=== PATIENT | female | born 1980 | race Two or more races ===

== ENCOUNTER 2018-09-16 19:27 | Inpatient (IN) | payer SELFPAY ==
[~2018-09-16] VITALS: Ht 160 cm; Wt 125.3 kg
[~2018-09-16 19:27] MED LIST: LEVO500T59 PO; TRAM50TA PO
[2018-09-16] MEDS ORDERED: fentaNYL PF VIAL 100 MCG/2 ML VIAL IV ONE ×2 (20:15→21:30)
[2018-09-16] MEDS ORDERED: IV NORMAL SALINE 1000ML BAG 1,000 ML IV ONE ×2 (20:15)
[2018-09-16] MEDS ORDERED: cefTRIAXone IV Push 1 GM VIAL. IVP ONE (20:15)
[2018-09-16] MEDS ORDERED: ACETAMINOPHEN 500 MG TABLET PO ONE (20:15)
[2018-09-16 20:18] LABS: CREATININE ISTAT 1.5 mg/dL (0.5-1.4); HEMOGLOBIN ISTAT 13.6 g/dL (12-15); ION CA ISTAT 1.13 mmol/L (1.13-1.32); POTASSIUM ISTAT 3.3 mmol/L (3.5-5.0)
[2018-09-16 20:18] LABS: BASO % 0 % (0-3); EOS # 0.1 x10^3/uL (0.0-0.7); EOS % 3 % (0-3); HEMATOCRIT 38.5 % (36.0-47.0); HEMOGLOBIN 12.8 g/dL (12.0-15.5); LYMPH # 0.7 x10^3/uL (1.0-4.8); LYMPH % 32 % (24-48); MEAN CORPUSCULAR HEMOGLOBIN 28 pg (25-35); MEAN CORPUSCULAR HGB CONC 33 g/dL (31-37); MEAN CORPUSCULAR VOLUME 85 fL (79-100); MONO % 2 % (0-9); NEUT # 1.4 x10^3/uL (1.8-7.7); NEUT % 63 % (31-73); PLATELET COUNT 101 x10^3/uL (140-400); RED BLOOD COUNT 4.52 x10^6/uL (3.50-5.40); RED CELL DISTRIBUTION WIDTH 15.3 % (11.5-14.5); WHITE BLOOD COUNT 2.2 x10^3/uL (4.0-11.0)
[2018-09-16 20:19] LABS: BILIRUBIN,URINE NEGATIVE (NEG); CLARITY,URINE CLOUDY; COLOR,URINE YELLOW; NITRITE,URINE NEGATIVE (NEG); PH,URINE 5.5; PROTEIN,URINE 100 mg/dL (NEG-TRACE)
--- NOTE | 2018-09-16 20:19 | PHYS DOC ---
Past Medical History Past Medical History: No Pertinent History Past Surgical History: Alcohol Use: None Drug Use: None Adult General Chief Complaint Chief Complaint: SHORTNESS OF BREATH HPI HPI Patient is a 38 year old female presents for shortness of breath as well as right flank pain just got back from a trip from [place] was in the car the whole time pain started on Monday in the right flank does have a history of kidney stone he felt kind of like that. In addition patient is feeling more short of breath feels like it's hard to get air has some chest pain in the lower substernal area feel sharp in nature of note temperature was 103.2. symptoms moderate worsening wtih time postivie hematuria nausea no vomiting no diarrhea has not felt sob like this before feels heart racing. All other ROS neg unless otherwise noted in HPI Review of Systems Review of Systems see above Current Medications Current Medications Current Medications Medications (Trade) Dose Ordered Sig/Saad Start Time Stop Time Status Last Admin Dose Admin Acetaminophen (Tylenol) 1,000 mg 1X ONCE 09/16/18 20:15 09/16/18 20:16 DC 09/16/18 20:25 1,000 MG Ceftriaxone Sodium (Rocephin) 1 gm 1X ONCE 09/16/18 20:15 09/16/18 20:16 DC 09/16/18 20:25 1 GM Fentanyl Citrate (Fentanyl 2ml Vial) 50 mcg 1X ONCE 09/16/18 21:30 09/16/18 21:31 DC 09/16/18 21:27 50 MCG Info (CONTRAST GIVEN -- Rx MONITORING) 1 each PRN DAILY PRN 09/16/18 20:45 09/18/18 20:44 Iohexol (Omnipaque 350 Mg/ml) 75 ml 1X ONCE 09/16/18 20:45 09/16/18 20:46 DC 09/16/18 21:04 75 ML Sodium Chloride 1,000 ml @ 1,560 mls/hr Q39M 09/16/18 20:45 09/16/18 21:45 DC 09/16/18 21:39 1,560 MLS/HR Allergies Allergies Allergies Coded Allergies Type Severity Reaction Last Updated Verified No Known Drug Allergies 11/28/13 No Physical Exam Physical Exam see above Constitutional: Well developed, somewhat acute distress, non-toxic appearance. [] HENT: Normocephalic, atraumatic, bilateral external ears normal, oropharynx moist, no oral exudates, nose normal. [] Eyes: PERRLA, EOMI, conjunctiva normal, no discharge. [] Neck: Normal range of motion, no tenderness, supple, no stridor. [] Cardiovascular: Tachycardic no definite murmurs limited exam due to rate Lungs & Thorax: Tachypnea otherwise lungs clear Abdomen: Bowel sounds normal, soft, there is right mid abdomen and right cva ttp noted, no masses, no pulsatile masses. [] Skin: Warm, dry, no erythema, no rash. [] Back: CVA tenderness. [] Extremities: No tenderness, no cyanosis, no clubbing, ROM intact, no edema. [] Neurologic: Alert and oriented X 3, normal motor function, normal sensory function, no focal deficits noted. [] Psychologic: Affect normal, judgement normal, mood normal. [] Current Patient Data Vital Signs Vital Signs Date Time Temp Pulse Resp B/P (MAP) Pulse Ox O2 Delivery O2 Flow Rate FiO2 09/16/18 21:27 24 Room Air 09/16/18 21:03 99.9 116 110/56 (74) 97 99.9 Lab Values Laboratory Tests Test 09/16/18 19:38 09/16/18 19:50 09/16/18 20:03 09/16/18 20:10 Urine Collection Type Unknown Urine Color Yellow Urine Clarity Cloudy Urine pH 5.5 Urine Specific [place] 1.020 Urine Protein 100 mg/dL (NEG-TRACE) Urine Glucose (UA) 100 mg/dL (NEG) Urine Ketones (Stick) Negative mg/dL (NEG) Urine Blood Large (NEG) Urine Nitrite Negative (NEG) Urine Bilirubin Negative (NEG) Urine Urobilinogen Dipstick 1.0 mg/dL (0.2 mg/dL) Urine Leukocyte Esterase Moderate (NEG) Urine RBC 0 /HPF (0-2) Urine WBC >40 /HPF (0-4) Urine Squamous Epithelial Cells Mod /LPF Urine Bacteria Moderate /HPF (0-FEW) Urine Mucus Slight /LPF Urine Opiates Screen Neg (NEG) Urine Methadone Screen Neg (NEG) Urine Barbiturates Neg (NEG) Urine Phencyclidine Screen Neg (NEG) Urine Amphetamine/Methamphetamine Neg (NEG) Urine Benzodiazepines Screen Neg (NEG) Urine Cocaine Screen Neg (NEG) Urine Cannabinoids Screen Neg (NEG) Urine Ethyl Alcohol Neg (NEG) POC Urine HCG, Qualitative Hcg negative (Negative) White Blood Count 2.2 x10^3/uL (4.0-11.0) L Red Blood Count 4.52 x10^6/uL (3.50-5.40) Hemoglobin 12.8 g/dL (12.0-15.5) Hematocrit 38.5 % (36.0-47.0) Mean Corpuscular Volume 85 fL (79-100) Mean Corpuscular Hemoglobin 28 pg (25-35) Mean Corpuscular Hemoglobin Concent 33 g/dL (31-37) Red Cell Distribution Width 15.3 % (11.5-14.5) H Platelet Count 101 x10^3/uL (140-400) L Neutrophils (%) (Auto) 63 % (31-73) Lymphocytes (%) (Auto) 32 % (24-48) Monocytes (%) (Auto) 2 % (0-9) Eosinophils (%) (Auto) 3 % (0-3) Basophils (%) (Auto) 0 % (0-3) Neutrophils # (Auto) 1.4 x10^3/uL (1.8-7.7) L Lymphocytes # (Auto) 0.7 x10^3/uL (1.0-4.8) L Monocytes # (Auto) 0.0 x10^3/uL (0.0-1.1) Eosinophils # (Auto) 0.1 x10^3/uL (0.0-0.7) Basophils # (Auto) 0.0 x10^3/uL (0.0-0.2) Prothrombin Time 16.6 SEC (11.7-14.0) H Prothrombin Time INR 1.4 (0.8-1.1) H Sodium Level 137 mmol/L (136-145) Potassium Level 3.4 mmol/L (3.5-5.1) L Chloride Level 102 mmol/L (98-107) Carbon Dioxide Level 18 mmol/L (21-32) L Anion Gap 17 (6-14) H 20 mmol/L (6-14) H Blood Urea Nitrogen 25 mg/dL (7-20) H Creatinine 1.7 mg/dL (0.6-1.0) H Estimated GFR (Cockcroft-Gault) 34.0 BUN/Creatinine Ratio 15 (6-20) Glucose Level 171 mg/dL (70-99) H 168 mg/dL (70-99) H Lactic Acid Level 4.4 mmol/L (0.4-2.0) *H Calcium Level 8.2 mg/dL (8.5-10.1) L Total Bilirubin 0.8 mg/dL (0.2-1.0) Aspartate Amino Transferase (AST) 51 U/L (15-37) H Alanine Aminotransferase (ALT) 88 U/L (14-59) H Alkaline Phosphatase 230 U/L (46-116) H Troponin I Quantitative < 0.017 ng/mL (0.000-0.055) Total Protein 6.9 g/dL (6.4-8.2) Albumin 2.8 g/dL (3.4-5.0) L Albumin/Globulin Ratio 0.7 (1.0-1.7) L Lipase 76 U/L (73-393) Procalcitonin 43.40 ng/mL (0.00-0.10) H POC Hemoglobin 13.6 g/dL (12-15) POC Hematocrit 40 % (36-40) POC Sodium 136 mmol/L (135-145) POC Potassium 3.3 mmol/L (3.5-5.0) L POC Chloride 104 mmol/L (98-110) POC Total CO2 16 mmol/L (23-32) L POC Blood Urea Nitrogen 24 mg/dL (8-26) POC Creatinine 1.5 mg/dL (0.5-1.4) H POC Ionized Calcium (Chris) 1.13 mmol/L (1.13-1.32) Laboratory Tests 09/16/18 20:03 Laboratory Tests 09/16/18 20:03 09/16/18 20:10 EKG EKG []EKG shows a supraventricular tachycardia probably sinus tach rate of 144 ischemic changes noted Radiology/Procedures Radiology/Procedures [] Impressions: IMPRESSION: 1. No pulmonary embolism. 2. 5 mm right distal ureteral calculus with mild right hydronephrosis and perinephric stranding. Correlate to exclude superimposed ascending infection. 3. 3 mm right renal calculus. 4. Moderate to severe diffuse hepatic steatosis. *One or more of the following individualized dose reduction techniques were utilized for this examination: 1. Automated exposure control. 2. Adjustment of the mA and/or kV according to patient size. 3. Use of iterative reconstruction technique. Electronically signed by: Ying Blackburn MD (09/16/2018 9:34 PM) [facility] Course & Med Decision Making Course & Med Decision Making Pertinent Labs and Imaging studies reviewed. (See chart for details) []tachy fefbrile right flank pain recent car trip sob hr 140's ddx pe v infected stone workup in progress septic workup. CT scan noted shows a 5 mm kidney stone RECHECK BP 90'S SYSTOLIC HEART RATE IMPROVED I PERFORMED A SEPSIS REASSESSMENT, THIRD BAG HANGING OF 2200 D/W ANAST UROLOGY AT 950 PM, RECOMMENDS ICU ADMIT, IV ABX, IV FLUIDS, STABILIIZE PATIENT, WILL PLAN ON INTERVENTION FIRST THING AM. D/W CASTLE ICU SEPTIC SHOCK INFECTED KINDEY STONE Critical care time was 50 minutes exclusive of procedures. Dragon Disclaimer Dragon Disclaimer This electronic medical record was generated, in whole or in part, using a voice recognition dictation system. Departure Departure Impression: Primary Impression: Septic shock Additional Impression: Kidney stone Disposition: ADMITTED INPATIENT Admitting Physician: MAIKEL Condition: GUARDED Referrals: NO PCP (PCP) Date and Time of Reassessment Date: Sep 16, 2018 Time: 22:17 Fluid Challenge Is the fluid challenge complet: Yes IBW Target Volume Used: Yes BMI > 30: Yes Vital Signs Vital Signs: Vital Signs Date Time Temp Pulse Resp B/P (MAP) Pulse Ox O2 Delivery O2 Flow Rate FiO2 09/16/18 21:27 24 Room Air 09/16/18 21:03 99.9 116 110/56 (74) 97 99.9 Temperature Source: Oral Respirations Respiratory Effort: Normal (IMPROVED RESP EFFOR.T BP IN 90'S, THIRD LITER UP.) Cardiovascular Pulse Rhythm: Regular Heart: Nml S1, S2, no murmurs Lung Sounds Breath Sounds: Clear Capillary Refil Capillary Refill: Rt Hand < 3 seconds Peripheral Pulse Pulse Location: Monitor Pulse Strength: Normal (2+) Pulse Assessment Method: NIBP Integumentary Skin: Warm Skin Moisture: Dry Problem Qualifiers RICK DICKINSON MD Sep 16, 2018 20:19
[2018-09-16 20:25] LABS: AMPHETAMINE/METHAMPHETAMINE NEG (NEG); BARBITURATES NEG (NEG); BENZODIAZEPINES NEG (NEG); CANNABINOIDS NEG (NEG); COCAINE NEG (NEG); METHADONE NEG (NEG); OPIATES NEG (NEG); PHENCYCLIDINE NEG (NEG)
[2018-09-16 20:26] LABS: PROTHROMBIN TIME PATIENT 16.6 SEC (11.7-14.0)
[2018-09-16 20:26] LABS: SQUAMOUS EPITHELIAL CELL,UR MOD /LPF
[2018-09-16 20:27] LABS: BACTERIA,URINE MODERATE /HPF (0-FEW); RBC,URINE 0 /HPF (0-2); WBC,URINE >40 /HPF (0-4)
[2018-09-16 20:27] LABS: CALCIUM 8.2 mg/dL (8.5-10.1); CREATININE 1.7 mg/dL (0.6-1.0); POTASSIUM 3.4 mmol/L (3.5-5.1)
[2018-09-16 20:33] LABS: ALBUMIN 2.8 g/dL (3.4-5.0); ALBUMIN/GLOBULIN RATIO 0.7 (1.0-1.7); TOTAL BILIRUBIN 0.8 mg/dL (0.2-1.0); TOTAL PROTEIN 6.9 g/dL (6.4-8.2)
[2018-09-16] MEDS ORDERED: CONTRAST GIVEN. MC PRN (20:45)
[2018-09-16] MEDS ORDERED: IOHEXOL 350 MG/ML 100 ML VIAL. IV ONE (20:45)
[2018-09-16] MEDS: IV NORMAL SALINE 1000ML BAG 1,000 ML IV SCH ×3 (21:24→22:58)
--- NOTE | 2018-09-16 21:37 | RAD ---
EXAM: 1. CT ANGIOGRAPHY OF THE CHEST WITH AND WITHOUT INTRAVENOUS CONTRAST. 2. CT ABDOMEN/PELVIS WITHOUT CONTRAST. HISTORY: Fever. Flank pain. Shortness of breath, tachycardia, immobilization. TECHNIQUE: Computed tomographic angiography of the chest was performed before and after the intravenous administration of 75 mL Omnipaque 350. 3-D maximum intensity projections were also performed. CT of the abdomen/pelvis was performed without contrast. COMPARISON: 03/28/2015. FINDINGS: Bone windows reveal no suspicious lesions. Opacification of the pulmonary arterial tree is suboptimal, limiting sensitivity for small pulmonary emboli. None are seen. There is no aortic dissection or aneurysm. There are no pathologically enlarged mediastinal or axillary lymph nodes. Calcified mediastinal lymph nodes are likely secondary to old granulomatous disease. There is no pleural or pericardial effusion. The heart is not enlarged. Lung windows reveal no infiltrates. There is a calcified granuloma in the left lower lobe. There is minimal dependent atelectasis. Hypoattenuation of the hepatic parenchyma indicates moderate to severe diffuse hepatic steatosis. The gallbladder, pancreas, adrenal glands and spleen are unremarkable. There are no pathologically enlarged lymph nodes. A calculus in the right distal ureter measures 5 x 3 mm. There is mild right hydronephrosis and hydroureter with perinephric stranding. Additional right renal calculi measure 3 mm or less. There are no left renal or ureteral calculi. There are no suspicious renal lesions without contrast. The bladder is decompressed but demonstrates some wall thickening. The appendix is not inflamed. There is no small bowel obstruction. IMPRESSION: 1. No pulmonary embolism. 2. 5 mm right distal ureteral calculus with mild right hydronephrosis and perinephric stranding. Correlate to exclude superimposed ascending infection. 3. 3 mm right renal calculus. 4. Moderate to severe diffuse hepatic steatosis. *One or more of the following individualized dose reduction techniques were utilized for this examination: 1. Automated exposure control. 2. Adjustment of the mA and/or kV according to patient size. 3. Use of iterative reconstruction technique. Electronically signed by: Ying Blackburn MD (09/16/2018 9:34 PM) [facility]
--- NOTE | 2018-09-16 21:40 | RAD ---
EXAM: CHEST 1 VIEW. HISTORY: Shortness of breath. COMPARISON: None. FINDINGS: A frontal view of the chest is obtained. There are no confluent infiltrates. There is no pneumothorax or pleural effusion. The heart is not enlarged. IMPRESSION: 1. No confluent infiltrates. Electronically signed by: Ying Blackburn MD (09/16/2018 9:37 PM) [facility]
[2018-09-16] MEDS ORDERED: IOHEXOL 300 MG/ML 50 ML VIAL. ONE (22:23)
[2018-09-16 22:30] VITALS: BP 98/68
[2018-09-16 22:45] VITALS: BP 86/48
[2018-09-16] MEDS ORDERED: SEVOFLURANE 31 TO 60 MINUTES. IH ONE (22:57)
[2018-09-16] MEDS ORDERED: KETOROLAC 30 MG/ML INJ FOR OR. INJ ONE (22:58)
[2018-09-16] MEDS ORDERED: LIDOCAINE 2% PF 5 ML VIAL. ONE (22:58)
[2018-09-16] MEDS ORDERED: DEXAMETHASONE SOD PHOS 4 MG/ML VIAL ONE (22:58)
[2018-09-16] MEDS ORDERED: PROPOFOL 20 ML IV ONE (22:58)
[2018-09-16] MEDS ORDERED: ONDANSETRON PF 4 MG/2 ML VIAL. ONE (22:58)
[2018-09-16 23:00] VITALS: BP 85/55
[2018-09-16 23:15] VITALS: BP 83/61
--- NOTE | 2018-09-16 23:20 | PDOC2 ---
UROLOGY CONSULT Date of Consult Date of Consult DATE: 09/16/18 TIME: 23:12 Reason for Consult Reason for Consult: right ureter stone Identification/Chief Complaint Chief Complaint right flank pain Source Source: Chart review, Patient History of Present Illness Reason for Visit: 38 yo female presented to ER this evening with right flank pain x 2 days, as well as shortness of breath. She recently returned from a trip to [place]. CT obtained, I reviewed images, which showed 5 mm distal right ureter stone with hydronephrosis. She also was noted to have low WBC of 2.2, elevated lactic acid, and signs of sepsis (temp 103, tachypnea, tachycardia, hypotension). She was transferred to the ICU and BP has improved with fluid boluses. She reports a kidney stone previously in 2016. Past Medical History Cardiovascular: No pertinent hx Pulmonary: No pertinent hx GI: No pertinent hx Heme/Onc: No pertinent hx Hepatobiliary: No pertinent hx Psych: No pertinent hx Rheumatologic: No pertinent hx Infectious disease: No pertinent hx Renal/: No pertinent hx Endocrine: No pertinent hx Past Surgical History Past Surgical History: Family History Family History: Family History Unknown Social History ALCOHOL: none Drugs: None Current Medications Current Medications Current Medications Acetaminophen (Tylenol) 1,000 mg 1X ONCE PO Last administered on 09/16/18at 20:25; Start 09/16/18 at 20:15; Stop 09/16/18 at 20:16; Status DC Ceftriaxone Sodium (Rocephin) 1 gm 1X ONCE IVP Last administered on 09/16/18at 20:25; Start 09/16/18 at 20:15; Stop 09/16/18 at 20:16; Status DC Dexamethasone Sodium Phosphate (Decadron) 4 mg STK-MED ONCE .ROUTE ; Start 09/16/18 at 22:58; Stop 09/16/18 at 22:59; Status DC Fentanyl Citrate (Fentanyl 2ml Vial) 50 mcg 1X ONCE IV Last administered on 09/16/18at 20:25; Start 09/16/18 at 20:15; Stop 09/16/18 at 20:16; Status DC Fentanyl Citrate (Fentanyl 2ml Vial) 50 mcg 1X ONCE IV Last administered on 09/16/18at 21:27; Start 09/16/18 at 21:30; Stop 09/16/18 at 21:31; Status DC Info (CONTRAST GIVEN -- Rx MONITORING) 1 each PRN DAILY PRN MC SEE COMMENTS; Start 09/16/18 at 20:45; Stop 09/18/18 at 20:44 Iohexol (Omnipaque 350 Mg/ml) 75 ml 1X ONCE IV Last administered on 09/16/18at 21:04; Start 09/16/18 at 20:45; Stop 09/16/18 at 20:46; Status DC Ketorolac Tromethamine (Toradol For Or Only) 30 mg STK-MED ONCE INJ ; Start 09/16/18 at 22:58; Stop 09/16/18 at 22:59; Status DC Lidocaine HCl (Lidocaine Pf 2% Vial) 5 ml STK-MED ONCE .ROUTE ; Start 09/16/18 at 22:58; Stop 09/16/18 at 22:59; Status DC Ondansetron HCl (Zofran) 4 mg STK-MED ONCE .ROUTE ; Start 09/16/18 at 22:58; Stop 09/16/18 at 22:59; Status DC Propofol 20 ml @ As Directed STK-MED ONCE IV ; Start 09/16/18 at 22:58; Stop 09/16/18 at 22:59; Status DC Sevoflurane (Ultane) 30 ml STK-MED ONCE IH ; Start 09/16/18 at 22:57; Stop 09/16/18 at 22:58; Status DC Sodium Chloride 1,000 ml @ 150 mls/hr Q6H40M IV Last administered on 09/16/18at 22:58; Start 09/16/18 at 22:00; Stop 09/17/18 at 21:59 Sodium Chloride 1,000 ml @ 1,000 mls/hr 1X ONCE IV Last administered on 09/16/18at 20:20; Start 09/16/18 at 20:15; Stop 09/16/18 at 21:14; Status DC Sodium Chloride 1,000 ml @ 1,000 mls/hr 1X ONCE IV Last administered on 09/16/18at 20:20; Start 09/16/18 at 20:15; Stop 09/16/18 at 21:14; Status DC Sodium Chloride 1,000 ml @ 1,560 mls/hr Q39M IV Last administered on 09/16/18at 21:39; Start 09/16/18 at 20:45; Stop 09/16/18 at 21:45; Status DC Allergies Allergies: Coded Allergies: No Known Drug Allergies (Unverified , 11/28/13) ROS Review Of Systems: Except as noted in HPI: CONSTITUTIONAL: N+ fever EYES: No recent changes SKIN: No rash or itching CARDIOVASCULAR: No chest pain, syncope, palpitations, or edema RESPIRATORY: + SOB, no cough GASTROINTESTINAL: + nausea, vomiting, abdominal pain NEUROLOGICAL: No headaches or weakness ENDOCRINE: No cold or heat intolerance GENITOURINARY: No urgency or frequency of urination MUSCULOSKELETAL: No back pain or joint pain LYMPHATICS: No enlarged lymph nodes PSYCHIATRIC: No anxiety or depression Physical Exam Physical Exam: General: Pleasant, no acute distress, well groomed Eyes: conjunctiva anicteric, eyes full range of motion ENT: moist oral mucosa, normal dentition Neck: Trachea midline, no masses Respiratory: labored breathing Cardiovascular: Regular rate and rhythm, no peripheral edema Abdomen: nontender, nondistended, no hepatosplenomegaly, no masses Back: no tenderness Skin: no rashes or skin lesions on visualized skin Psych: normal mood, affect. Alert and oriented x 3. Vitals VITALS Vital Signs Date Time Temp Pulse Resp B/P (MAP) Pulse Ox O2 Delivery O2 Flow Rate FiO2 09/16/18 23:00 114 30 85/55 (65) 98 Room Air 09/16/18 22:30 98.8 98.8 Labs Labs Laboratory Tests Test 09/16/18 19:38 09/16/18 19:50 09/16/18 20:03 09/16/18 20:10 Urine Collection Type Unknown Urine Color Yellow Urine Clarity Cloudy Urine pH 5.5 Urine Specific [place] 1.020 Urine Protein 100 mg/dL (NEG-TRACE) Urine Glucose (UA) 100 mg/dL (NEG) Urine Ketones (Stick) Negative mg/dL (NEG) Urine Blood Large (NEG) Urine Nitrite Negative (NEG) Urine Bilirubin Negative (NEG) Urine Urobilinogen Dipstick 1.0 mg/dL (0.2 mg/dL) Urine Leukocyte Esterase Moderate (NEG) Urine RBC 0 /HPF (0-2) Urine WBC >40 /HPF (0-4) Urine Squamous Epithelial Cells Mod /LPF Urine Bacteria Moderate /HPF (0-FEW) Urine Mucus Slight /LPF Urine Opiates Screen Neg (NEG) Urine Methadone Screen Neg (NEG) Urine Barbiturates Neg (NEG) Urine Phencyclidine Screen Neg (NEG) Urine Amphetamine/Methamphetamine Neg (NEG) Urine Benzodiazepines Screen Neg (NEG) Urine Cocaine Screen Neg (NEG) Urine Cannabinoids Screen Neg (NEG) Urine Ethyl Alcohol Neg (NEG) Bedside Urine HCG, Qualitative Hcg negative (Negative) White Blood Count 2.2 x10^3/uL (4.0-11.0) Red Blood Count 4.52 x10^6/uL (3.50-5.40) Hemoglobin 12.8 g/dL (12.0-15.5) Hematocrit 38.5 % (36.0-47.0) Mean Corpuscular Volume 85 fL (79-100) Mean Corpuscular Hemoglobin 28 pg (25-35) Mean Corpuscular Hemoglobin Concent 33 g/dL (31-37) Red Cell Distribution Width 15.3 % (11.5-14.5) Platelet Count 101 x10^3/uL (140-400) Neutrophils (%) (Auto) 63 % (31-73) Lymphocytes (%) (Auto) 32 % (24-48) Monocytes (%) (Auto) 2 % (0-9) Eosinophils (%) (Auto) 3 % (0-3) Basophils (%) (Auto) 0 % (0-3) Neutrophils # (Auto) 1.4 x10^3/uL (1.8-7.7) Lymphocytes # (Auto) 0.7 x10^3/uL (1.0-4.8) Monocytes # (Auto) 0.0 x10^3/uL (0.0-1.1) Eosinophils # (Auto) 0.1 x10^3/uL (0.0-0.7) Basophils # (Auto) 0.0 x10^3/uL (0.0-0.2) Prothrombin Time 16.6 SEC (11.7-14.0) Prothromb Time International Ratio 1.4 (0.8-1.1) Sodium Level 137 mmol/L (136-145) Potassium Level 3.4 mmol/L (3.5-5.1) Chloride Level 102 mmol/L (98-107) Carbon Dioxide Level 18 mmol/L (21-32) Anion Gap 17 (6-14) 20 mmol/L (6-14) Blood Urea Nitrogen 25 mg/dL (7-20) Creatinine 1.7 mg/dL (0.6-1.0) Estimated GFR (Cockcroft-Gault) 34.0 BUN/Creatinine Ratio 15 (6-20) Glucose Level 171 mg/dL (70-99) 168 mg/dL (70-99) Lactic Acid Level 4.4 mmol/L (0.4-2.0) Calcium Level 8.2 mg/dL (8.5-10.1) Total Bilirubin 0.8 mg/dL (0.2-1.0) Aspartate Amino Transf (AST/SGOT) 51 U/L (15-37) Alanine Aminotransferase (ALT/SGPT) 88 U/L (14-59) Alkaline Phosphatase 230 U/L (46-116) Troponin I Quantitative < 0.017 ng/mL (0.000-0.055) Total Protein 6.9 g/dL (6.4-8.2) Albumin 2.8 g/dL (3.4-5.0) Albumin/Globulin Ratio 0.7 (1.0-1.7) Lipase 76 U/L (73-393) Procalcitonin 43.40 ng/mL (0.00-0.10) Bedside Hemoglobin 13.6 g/dL (12-15) Bedside Hematocrit 40 % (36-40) Bedside Sodium 136 mmol/L (135-145) Bedside Potassium 3.3 mmol/L (3.5-5.0) Bedside Chloride 104 mmol/L (98-110) Bedside Total CO2 16 mmol/L (23-32) Bedside Blood Urea Nitrogen 24 mg/dL (8-26) Bedside Creatinine 1.5 mg/dL (0.5-1.4) Bedside Ionized Calcium (Chris) 1.13 mmol/L (1.13-1.32) Laboratory Tests Test 09/16/18 19:38 09/16/18 19:50 09/16/18 20:03 09/16/18 20:10 Urine Collection Type Unknown Urine Color Yellow Urine Clarity Cloudy Urine pH 5.5 Urine Specific [place] 1.020 Urine Protein 100 mg/dL (NEG-TRACE) Urine Glucose (UA) 100 mg/dL (NEG) Urine Ketones (Stick) Negative mg/dL (NEG) Urine Blood Large (NEG) Urine Nitrite Negative (NEG) Urine Bilirubin Negative (NEG) Urine Urobilinogen Dipstick 1.0 mg/dL (0.2 mg/dL) Urine Leukocyte Esterase Moderate (NEG) Urine RBC 0 /HPF (0-2) Urine WBC >40 /HPF (0-4) Urine Squamous Epithelial Cells Mod /LPF Urine Bacteria Moderate /HPF (0-FEW) Urine Mucus Slight /LPF Urine Opiates Screen Neg (NEG) Urine Methadone Screen Neg (NEG) Urine Barbiturates Neg (NEG) Urine Phencyclidine Screen Neg (NEG) Urine Amphetamine/Methamphetamine Neg (NEG) Urine Benzodiazepines Screen Neg (NEG) Urine Cocaine Screen Neg (NEG) Urine Cannabinoids Screen Neg (NEG) Urine Ethyl Alcohol Neg (NEG) Bedside Urine HCG, Qualitative Hcg negative (Negative) White Blood Count 2.2 x10^3/uL (4.0-11.0) Red Blood Count 4.52 x10^6/uL (3.50-5.40) Hemoglobin 12.8 g/dL (12.0-15.5) Hematocrit 38.5 % (36.0-47.0) Mean Corpuscular Volume 85 fL (79-100) Mean Corpuscular Hemoglobin 28 pg (25-35) Mean Corpuscular Hemoglobin Concent 33 g/dL (31-37) Red Cell Distribution Width 15.3 % (11.5-14.5) Platelet Count 101 x10^3/uL (140-400) Neutrophils (%) (Auto) 63 % (31-73) Lymphocytes (%) (Auto) 32 % (24-48) Monocytes (%) (Auto) 2 % (0-9) Eosinophils (%) (Auto) 3 % (0-3) Basophils (%) (Auto) 0 % (0-3) Neutrophils # (Auto) 1.4 x10^3/uL (1.8-7.7) Lymphocytes # (Auto) 0.7 x10^3/uL (1.0-4.8) Monocytes # (Auto) 0.0 x10^3/uL (0.0-1.1) Eosinophils # (Auto) 0.1 x10^3/uL (0.0-0.7) Basophils # (Auto) 0.0 x10^3/uL (0.0-0.2) Prothrombin Time 16.6 SEC (11.7-14.0) Prothromb Time International Ratio 1.4 (0.8-1.1) Sodium Level 137 mmol/L (136-145) Potassium Level 3.4 mmol/L (3.5-5.1) Chloride Level 102 mmol/L (98-107) Carbon Dioxide Level 18 mmol/L (21-32) Anion Gap 17 (6-14) 20 mmol/L (6-14) Blood Urea Nitrogen 25 mg/dL (7-20) Creatinine 1.7 mg/dL (0.6-1.0) Estimated GFR (Cockcroft-Gault) 34.0 BUN/Creatinine Ratio 15 (6-20) Glucose Level 171 mg/dL (70-99) 168 mg/dL (70-99) Lactic Acid Level 4.4 mmol/L (0.4-2.0) Calcium Level 8.2 mg/dL (8.5-10.1) Total Bilirubin 0.8 mg/dL (0.2-1.0) Aspartate Amino Transf (AST/SGOT) 51 U/L (15-37) Alanine Aminotransferase (ALT/SGPT) 88 U/L (14-59) Alkaline Phosphatase 230 U/L (46-116) Troponin I Quantitative < 0.017 ng/mL (0.000-0.055) Total Protein 6.9 g/dL (6.4-8.2) Albumin 2.8 g/dL (3.4-5.0) Albumin/Globulin Ratio 0.7 (1.0-1.7) Lipase 76 U/L (73-393) Procalcitonin 43.40 ng/mL (0.00-0.10) Bedside Hemoglobin 13.6 g/dL (12-15) Bedside Hematocrit 40 % (36-40) Bedside Sodium 136 mmol/L (135-145) Bedside Potassium 3.3 mmol/L (3.5-5.0) Bedside Chloride 104 mmol/L (98-110) Bedside Total CO2 16 mmol/L (23-32) Bedside Blood Urea Nitrogen 24 mg/dL (8-26) Bedside Creatinine 1.5 mg/dL (0.5-1.4) Bedside Ionized Calcium (Chris) 1.13 mmol/L (1.13-1.32) Assessment/Plan Assessment/Plan Reviewed with patient and her family that she has sepsis from UTI and ureteral stone, and emergent ureteral stent placement in recommended. Risk of procedure include bleeding, worsening infection, pain, anesthesia risk, ; however outcome will be much worse without stent placement. She agrees to proceed with the procedure. All questions answered. CARMEN SAVAGE MD Sep 16, 2018 23:20
[2018-09-16] MEDS ORDERED: PHENYLEPHRINE in 0.9% NACL PF 1 MG/10 ML SYRINGE. IV ONE (23:23)
[2018-09-16] MEDS ORDERED: ePHEDrine PF IN SALINE 50 MG/10 ML SYRINGE. IV ONE (23:23)
[2018-09-16] MEDS ORDERED: ALBUMIN HUMAN 5% 500 ML IV ONE (23:43)
[2018-09-16] MEDS ORDERED: VASOPRESSIN 20 UNIT/ML VIAL. ONE (23:48)
[2018-09-17] VITALS (29 sets, daily range): BP systolic 77–161; BP diastolic 52–112
--- NOTE | 2018-09-17 00:01 | PDOC4 ---
OPERATIVE NOTE Date: Date: Sep 16, 2018 Pre-Op Diagnosis: right ureter stone Post-Op Diagnosis: same Procedure Performed: cystoscopy, right ureter stent placement, retrograde pyelogram Surgeon: Carmen Savage MD Anesthesia Type: general Blood Loss: 0 Specimans Obtained: right kidney urine for culture Findings: right hydronephrosis Complications: none Operative Note: see dictation CARMEN SAVAGE MD Sep 17, 2018 00:01
--- NOTE | 2018-09-17 00:23 | OP ---
DATE OF SURGERY: 09/16/2018 SURGEON: Carmen Savage MD PREPARED FOODS ASSOCIATE: None. PREOPERATIVE DIAGNOSIS: Right ureter stone. POSTOPERATIVE DIAGNOSIS: Right ureter stone. PROCEDURE PERFORMED: Cystoscopy with right ureteral stent placement and right retrograde pyelogram. ANESTHESIA TYPE: General. INDICATIONS: This is a 38-year-old female who presented with a 5 mm distal right ureter stone as well as UTI with sepsis. After discussion of risks, benefits and alternatives, she agreed to the above procedure. Informed consent was obtained. DESCRIPTION OF PROCEDURE: The patient was taken to the operating room and general anesthesia was induced. She was placed in dorsal lithotomy position, sterilely prepped and draped. A timeout was performed. A rigid cystoscope was advanced through the urethra into the bladder. The bladder appeared infected. A guidewire was gently passed into the right ureteral orifice and up into the right renal pelvis. Ureteral catheter was advanced over that. Urine was seen rapidly draining through the stent and this urine was collected and sent for a culture. A gentle retrograde pyelogram was then performed, which showed moderate right hydronephrosis. The guidewire was reintroduced. A 6 x 24 cm stent was then easily advanced over the wire and the wire was removed. Appropriate stent curl was noted in the right renal pelvis and in the bladder on fluoroscopy. A Arriaga catheter was placed. The patient was then awakened and taken to the recovery room in guarded condition. BLOOD LOSS: None. COMPLICATIONS: None. SPECIMEN: Right kidney urine for culture. CARMEN SAVAGE MD DR: ROSA/brandon JOB#: [id number] / [id number]
[2018-09-17] MEDS ORDERED: ALBUMIN HUMAN 5% 500 ML IV ONE ×2 (00:45→01:00)
[2018-09-17] MEDS ORDERED: IV RINGERS,LACTATED 1000ML 1,000 ML IV SCH (00:57)
[2018-09-17] MEDS ORDERED: fentaNYL PF VIAL 100 MCG/2 ML VIAL IV PRN ×2 (01:00)
[2018-09-17] MEDS ORDERED: ONDANSETRON PF 4 MG/2 ML VIAL. IV PRN (01:00)
[2018-09-17] MEDS ORDERED: PROCHLORPERAZINE 10 MG/2 ML VIAL. IV PRN (01:00)
[2018-09-17] MEDS ORDERED: LIDOCAINE 1% PF 2 ML VIAL. ID PRN (01:00)
[2018-09-17] MEDS ORDERED: HYDROmorphone 2 MG/ML VIAL IV PRN (01:00)
[2018-09-17] MEDS ORDERED: MORPHINE SULFATE 2 MG/ML VIAL. IV PRN (01:00)
[2018-09-17] MEDS ORDERED: ACETAMINOPHEN 325 MG TABLET. PO PRN (02:00)
--- NOTE | 2018-09-17 02:04 | NUR ---
pt admitted to ICU at 2225. Pt alert and polite, was able to walk to ICU bed. Pt connected to monitor and informed of unit policy and procedures. Pt BP is low at 86/48, pt is drowsy but able to answer all questions appropriately. Dr Ryan called and will be coming to perform a cystoscopy with stent placemet. Pt currently stable will continue to monitor.
[2018-09-17] MEDS: NOREPINEPHRIN 8MG/250ML PREMIX 250 ML IV PRN ×3 (02:27→14:59)
[2018-09-17] MEDS: MORPHINE SULFATE 2 MG/ML VIAL. IV PRN ×5 (02:28→23:24)
[2018-09-17] MEDS: IV NORMAL SALINE 1000ML BAG 1,000 ML IV SCH (04:52)
--- NOTE | 2018-09-17 07:05 | EKG ---
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
--- NOTE | 2018-09-17 08:34 | PDOC ---
REINAJONATHAN Weldon ARCHITECTURE INSTRUCTOR 09/17/18 0834: SUBJECTIVE Subjective Nurse concerned that urine output is down despite bolus. Bladder scan by RN was just 94. Patient states she has pain but it is under control currently. OBJECTIVE Objective Physical Exam: General appearance: Alert and Oriented Head: Normocephalic, without obvious abnormality Eyes: conjunctivae/corneas clear. PERRL, EOM's intact. Fundi benign Back: + CVA pain bilaterally, worse on the right than on the left. Lungs: Regular respirations, non labored breathing. Abdomen: soft, obese, generalized tenderness throughout. Pelvic: + Arriaga catheter in place draining clear yellow urine. Device appears to be in good working order. Vital Signs Vital Signs Date Time Temp Pulse Resp B/P (MAP) Pulse Ox O2 Delivery O2 Flow Rate FiO2 09/17/18 08:00 100 22 113/80 (91) 96 Room Air 09/17/18 07:45 28 95 Room Air 09/17/18 07:00 97.5 102 26 107/81 (90) 97 Room Air 97.5 09/17/18 06:00 102 24 108/81 (90) 95 Room Air 09/17/18 05:30 15 95 Room Air 09/17/18 05:00 101 22 87/69 (75) 95 Room Air 09/17/18 04:55 98 Room Air 09/17/18 04:00 Mask 6 09/17/18 04:00 98.2 106 22 84/52 (63) 95 Room Air 98.2 09/17/18 03:00 104 28 104/72 (83) 97 Room Air 09/17/18 02:58 15 98 Room Air 09/17/18 02:28 33 98 Room Air 09/17/18 02:00 105 26 99/61 (74) 97 Room Air 09/17/18 01:03 97.8 110 25 53/45 98 Room Air 97.8 09/17/18 01:00 98.1 107 16 77/53 (61) 99 Room Air 98.1 09/17/18 00:58 97.8 110 27 80/56 98 Room Air 97.8 09/17/18 00:53 97.8 110 25 73/51 97 Room Air 97.8 09/17/18 00:38 97.8 110 24 83/43 97 Room Air 97.8 09/17/18 00:28 97.8 112 22 69/51 97 Room Air 97.8 09/17/18 00:10 Mask 6 09/17/18 00:09 97.8 112 22 103/75 100 Room Air 6 97.8 09/16/18 23:59 Room Air 09/16/18 23:15 114 33 83/61 (68) 98 Room Air 09/16/18 23:00 114 30 85/55 (65) 98 Room Air 09/16/18 22:45 118 37 86/48 (61) 98 Room Air 09/16/18 22:30 Room Air 09/16/18 22:30 98.8 118 32 98/68 (78) 98 Room Air 98.8 09/16/18 22:05 114 28 92/54 (67) 97 Room Air 09/16/18 21:38 112 34 98/57 (71) 96 Room Air 09/16/18 21:27 24 Room Air 09/16/18 21:03 99.9 116 28 110/56 (74) 97 Room Air 99.9 09/16/18 20:26 128 135/67 (89) 97 Room Air 09/16/18 20:25 29 97 Room Air 09/16/18 19:56 103.0 143 28 137/80 (99) Room Air 103.0 09/16/18 19:43 97.3 115 28 135/65 (88) 98 Room Air 97.3 I & O Intake and Output 09/17/18 06:59 Intake Total 3000 ml Output Total 105 ml Balance 2895 ml Intake Oral 0 ml IV Total 3000 ml Output Urine Total 105 ml # Voids 1 PHYSICAL EXAM Physical Exam Physical Exam: General appearance: Alert and Oriented Head: Normocephalic, without obvious abnormality Eyes: conjunctivae/corneas clear. PERRL, EOM's intact. Fundi benign Back: + CVA pain bilaterally, worse on the right than on the left. Lungs: Regular respirations, non labored breathing. Abdomen: soft, obese, generalized tenderness throughout. Pelvic: + Arriaga catheter in place draining clear yellow urine. Device appears to be in good working order. ASSESSMENT/PLAN Assessment/Plan Social work consult for insurance;financial difficulties. Patient will need a follow up ureteroscopy in 2-3 weeks KUB to double check stent placement. Discussed with patient to let her nurse know if her bladder starts to feel full. If urine output does not increase by 8587-0803, then replace catheter to see if this is the problem. COMMENT Lab Laboratory Tests Test 09/16/18 19:38 09/16/18 19:50 09/16/18 20:03 09/16/18 20:10 Urine Collection Type Unknown Urine Color Yellow Urine Clarity Cloudy Urine pH 5.5 Urine Specific [place] 1.020 Urine Protein 100 mg/dL (NEG-TRACE) Urine Glucose (UA) 100 mg/dL (NEG) Urine Ketones (Stick) Negative mg/dL (NEG) Urine Blood Large (NEG) Urine Nitrite Negative (NEG) Urine Bilirubin Negative (NEG) Urine Urobilinogen Dipstick 1.0 mg/dL (0.2 mg/dL) Urine Leukocyte Esterase Moderate (NEG) Urine RBC 0 /HPF (0-2) Urine WBC >40 /HPF (0-4) Urine Squamous Epithelial Cells Mod /LPF Urine Bacteria Moderate /HPF (0-FEW) Urine Mucus Slight /LPF Urine Opiates Screen Neg (NEG) Urine Methadone Screen Neg (NEG) Urine Barbiturates Neg (NEG) Urine Phencyclidine Screen Neg (NEG) Urine Amphetamine/Methamphetamine Neg (NEG) Urine Benzodiazepines Screen Neg (NEG) Urine Cocaine Screen Neg (NEG) Urine Cannabinoids Screen Neg (NEG) Urine Ethyl Alcohol Neg (NEG) Bedside Urine HCG, Qualitative Hcg negative (Negative) White Blood Count 2.2 x10^3/uL (4.0-11.0) Red Blood Count 4.52 x10^6/uL (3.50-5.40) Hemoglobin 12.8 g/dL (12.0-15.5) Hematocrit 38.5 % (36.0-47.0) Mean Corpuscular Volume 85 fL (79-100) Mean Corpuscular Hemoglobin 28 pg (25-35) Mean Corpuscular Hemoglobin Concent 33 g/dL (31-37) Red Cell Distribution Width 15.3 % (11.5-14.5) Platelet Count 101 x10^3/uL (140-400) Neutrophils (%) (Auto) 63 % (31-73) Lymphocytes (%) (Auto) 32 % (24-48) Monocytes (%) (Auto) 2 % (0-9) Eosinophils (%) (Auto) 3 % (0-3) Basophils (%) (Auto) 0 % (0-3) Neutrophils # (Auto) 1.4 x10^3/uL (1.8-7.7) Lymphocytes # (Auto) 0.7 x10^3/uL (1.0-4.8) Monocytes # (Auto) 0.0 x10^3/uL (0.0-1.1) Eosinophils # (Auto) 0.1 x10^3/uL (0.0-0.7) Basophils # (Auto) 0.0 x10^3/uL (0.0-0.2) Prothrombin Time 16.6 SEC (11.7-14.0) Prothromb Time International Ratio 1.4 (0.8-1.1) Sodium Level 137 mmol/L (136-145) Potassium Level 3.4 mmol/L (3.5-5.1) Chloride Level 102 mmol/L (98-107) Carbon Dioxide Level 18 mmol/L (21-32) Anion Gap 17 (6-14) 20 mmol/L (6-14) Blood Urea Nitrogen 25 mg/dL (7-20) Creatinine 1.7 mg/dL (0.6-1.0) Estimated GFR (Cockcroft-Gault) 34.0 BUN/Creatinine Ratio 15 (6-20) Glucose Level 171 mg/dL (70-99) 168 mg/dL (70-99) Lactic Acid Level 4.4 mmol/L (0.4-2.0) Calcium Level 8.2 mg/dL (8.5-10.1) Total Bilirubin 0.8 mg/dL (0.2-1.0) Aspartate Amino Transf (AST/SGOT) 51 U/L (15-37) Alanine Aminotransferase (ALT/SGPT) 88 U/L (14-59) Alkaline Phosphatase 230 U/L (46-116) Troponin I Quantitative < 0.017 ng/mL (0.000-0.055) Total Protein 6.9 g/dL (6.4-8.2) Albumin 2.8 g/dL (3.4-5.0) Albumin/Globulin Ratio 0.7 (1.0-1.7) Lipase 76 U/L (73-393) Procalcitonin 43.40 ng/mL (0.00-0.10) Bedside Hemoglobin 13.6 g/dL (12-15) Bedside Hematocrit 40 % (36-40) Bedside Sodium 136 mmol/L (135-145) Bedside Potassium 3.3 mmol/L (3.5-5.0) Bedside Chloride 104 mmol/L (98-110) Bedside Total CO2 16 mmol/L (23-32) Bedside Blood Urea Nitrogen 24 mg/dL (8-26) Bedside Creatinine 1.5 mg/dL (0.5-1.4) Bedside Ionized Calcium (Chris) 1.13 mmol/L (1.13-1.32) Test 09/16/18 23:10 Lactic Acid Level 3.7 mmol/L (0.4-2.0) CAMREN SAVAGE MD 09/17/18 0905: ASSESSMENT/PLAN Assessment/Plan Agree with assessment and plan. Do not suspect stent or catheter malfunction as cause of low urine output - more likely due to sepsis / renal dysfunction and/or intravascular hypovolemia. JONATHAN HUANG APRN Sep 17, 2018 08:34 CARMEN SAVAGE MD Sep 17, 2018 09:05
--- NOTE | 2018-09-17 08:41 | NUR ---
Patient has low urine output after cystoscopy. Bladder scanned with 93ml. Relayed information to Winsome Rivers APRN. Orders received. Consult for Dr. Olguin called. Will continue to monitor. Addendum: 09/17/18 at 1455 by MERRY LINARES RN Consulted Dr. Cooper at 1300.
--- NOTE | 2018-09-17 08:55 | PDOC ---
Infectious Disease Note Vital Sign Vital Signs Vital Signs Date Time Temp Pulse Resp B/P (MAP) Pulse Ox O2 Delivery O2 Flow Rate FiO2 09/17/18 07:45 28 95 Room Air 09/17/18 05:00 101 87/69 (75) 09/17/18 04:00 6 09/17/18 04:00 98.2 98.2 Labs Lab Laboratory Tests Test 09/16/18 19:38 09/16/18 19:50 09/16/18 20:03 09/16/18 20:10 Urine Collection Type Unknown Urine Color Yellow Urine Clarity Cloudy Urine pH 5.5 Urine Specific [place] 1.020 Urine Protein 100 mg/dL (NEG-TRACE) Urine Glucose (UA) 100 mg/dL (NEG) Urine Ketones (Stick) Negative mg/dL (NEG) Urine Blood Large (NEG) Urine Nitrite Negative (NEG) Urine Bilirubin Negative (NEG) Urine Urobilinogen Dipstick 1.0 mg/dL (0.2 mg/dL) Urine Leukocyte Esterase Moderate (NEG) Urine RBC 0 /HPF (0-2) Urine WBC >40 /HPF (0-4) Urine Squamous Epithelial Cells Mod /LPF Urine Bacteria Moderate /HPF (0-FEW) Urine Mucus Slight /LPF Urine Opiates Screen Neg (NEG) Urine Methadone Screen Neg (NEG) Urine Barbiturates Neg (NEG) Urine Phencyclidine Screen Neg (NEG) Urine Amphetamine/Methamphetamine Neg (NEG) Urine Benzodiazepines Screen Neg (NEG) Urine Cocaine Screen Neg (NEG) Urine Cannabinoids Screen Neg (NEG) Urine Ethyl Alcohol Neg (NEG) Bedside Urine HCG, Qualitative Hcg negative (Negative) White Blood Count 2.2 x10^3/uL (4.0-11.0) Red Blood Count 4.52 x10^6/uL (3.50-5.40) Hemoglobin 12.8 g/dL (12.0-15.5) Hematocrit 38.5 % (36.0-47.0) Mean Corpuscular Volume 85 fL (79-100) Mean Corpuscular Hemoglobin 28 pg (25-35) Mean Corpuscular Hemoglobin Concent 33 g/dL (31-37) Red Cell Distribution Width 15.3 % (11.5-14.5) Platelet Count 101 x10^3/uL (140-400) Neutrophils (%) (Auto) 63 % (31-73) Lymphocytes (%) (Auto) 32 % (24-48) Monocytes (%) (Auto) 2 % (0-9) Eosinophils (%) (Auto) 3 % (0-3) Basophils (%) (Auto) 0 % (0-3) Neutrophils # (Auto) 1.4 x10^3/uL (1.8-7.7) Lymphocytes # (Auto) 0.7 x10^3/uL (1.0-4.8) Monocytes # (Auto) 0.0 x10^3/uL (0.0-1.1) Eosinophils # (Auto) 0.1 x10^3/uL (0.0-0.7) Basophils # (Auto) 0.0 x10^3/uL (0.0-0.2) Prothrombin Time 16.6 SEC (11.7-14.0) Prothromb Time International Ratio 1.4 (0.8-1.1) Sodium Level 137 mmol/L (136-145) Potassium Level 3.4 mmol/L (3.5-5.1) Chloride Level 102 mmol/L (98-107) Carbon Dioxide Level 18 mmol/L (21-32) Anion Gap 17 (6-14) 20 mmol/L (6-14) Blood Urea Nitrogen 25 mg/dL (7-20) Creatinine 1.7 mg/dL (0.6-1.0) Estimated GFR (Cockcroft-Gault) 34.0 BUN/Creatinine Ratio 15 (6-20) Glucose Level 171 mg/dL (70-99) 168 mg/dL (70-99) Lactic Acid Level 4.4 mmol/L (0.4-2.0) Calcium Level 8.2 mg/dL (8.5-10.1) Total Bilirubin 0.8 mg/dL (0.2-1.0) Aspartate Amino Transf (AST/SGOT) 51 U/L (15-37) Alanine Aminotransferase (ALT/SGPT) 88 U/L (14-59) Alkaline Phosphatase 230 U/L (46-116) Troponin I Quantitative < 0.017 ng/mL (0.000-0.055) Total Protein 6.9 g/dL (6.4-8.2) Albumin 2.8 g/dL (3.4-5.0) Albumin/Globulin Ratio 0.7 (1.0-1.7) Lipase 76 U/L (73-393) Procalcitonin 43.40 ng/mL (0.00-0.10) Bedside Hemoglobin 13.6 g/dL (12-15) Bedside Hematocrit 40 % (36-40) Bedside Sodium 136 mmol/L (135-145) Bedside Potassium 3.3 mmol/L (3.5-5.0) Bedside Chloride 104 mmol/L (98-110) Bedside Total CO2 16 mmol/L (23-32) Bedside Blood Urea Nitrogen 24 mg/dL (8-26) Bedside Creatinine 1.5 mg/dL (0.5-1.4) Bedside Ionized Calcium (Chris) 1.13 mmol/L (1.13-1.32) Test 09/16/18 23:10 Lactic Acid Level 3.7 mmol/L (0.4-2.0) CT A/P 1. No pulmonary embolism. 2. 5 mm right distal ureteral calculus with mild right hydronephrosis and perinephric stranding. Correlate to exclude superimposed ascending infection. 3. 3 mm right renal calculus. 4. Moderate to severe diffuse hepatic steatosis. Objective Assessment GNR bacteremia with septic shock requiring vasopressor support, 09/16 Lactic acidosis Pyelonephritis Leukopenia Ureteral calculi with hydronephrosis s/p emergent right stent placement, 09/16 DOLLY Severe hepatic steatosis Obesity h/o E. coli (gracia-S) Plan Plan of Care Dose meropenem per Dr. Olguin One time dose Rocephin in ER, 09/16 One time dose dexamethasone, 09/16 Repeat labs now and in am Monitor renal function/urine output f/u cultures D/w nursing Thank you [id number] Changed to Meropenem as her abx h/o was unknown. Uncertain if had exposure at other facilities which could lend to resistance. States she has not been on abx recently. States she is SOA- denies leg swelling or pain after long car ride likely renal given bicarb and DOLLY. Renal has been consulted and ABG has been ordered. May need Pulm eval. Currently on Levophed. D/w RN Critically ill 35 mins CC time. Previous records reviewed Attending Co-Sign Attending Co-Sign The patient was seen and interviewed as well as examined at the bedside. The chart was reviewed. The case was discussed. Agree with the plan of care. WILLIAM WISE APRN Sep 17, 2018 08:54 SILVANO OLGUIN MD Sep 17, 2018 12:06
[2018-09-17] MEDS: MEROPENEM 500 MG in IV NORMAL SALINE 50ML 50 ML IV SCH ×4 (09:13→23:37)
--- NOTE | 2018-09-17 10:07 | CONS ---
DATE OF CONSULTATION: 09/17/2018 REFERRING PHYSICIAN: Dr. Rivera. REASON FOR CONSULTATION: Sepsis. HISTORY OF PRESENT ILLNESS: This patient is a 38-year-old female who was driving back from [place] 2 days ago when she developed a sudden onset of back pain and need to urinate. She went to the bathroom and noticed blood in her urine. She took ibuprofen for pain relief. The following day, she continued to have pain and developed shaking chills, subjective fevers, body aches and shortness of air. On arrival to the ER, she had a fever of 103. She became hypotensive requiring vasopressor support. She had a WBC count of 2.2, lactic acid 4.4 and procalcitonin level of 43.40. A CT abdomen/pelvis revealed a 5 mm right distal ureter calculus with mild right hydronephrosis and perinephric stranding as well as a 3 mm right renal calculi. She underwent an urgent cystoscopy with right ureter stent placement. She received one time dose of ceftriaxone in the ER. ID has been asked to consult further evaluation and antibiotic management. The patient states she is feeling little bit better. She has ongoing back pain, mostly on the right, but not as intense. She denies abdominal pain, nausea, vomiting or diarrhea. She has low urine output. Her fevers have settled down at the moment. She has a history of urinary tract infection with Escherichia coli in the past. She denies recent antibiotics. PAST MEDICAL HISTORY: Renal calculi. Pansensitive Escherichia coli UTI. PAST SURGICAL HISTORY: section x 5. Tubal ligation. FAMILY HISTORY: Positive for hypertension and diabetes. SOCIAL HISTORY: The patient is . She does not work outside the home. She is not a smoker and drinks alcohol on occasion. ALLERGIES: No known drug allergies. MEDICATIONS: One-time dose of ceftriaxone, ER. One-time dose of dexamethasone, 09/16. Levophed. Other medications are available and have been reviewed on the APR. REVIEW OF SYSTEMS: Per HPI, otherwise all other review of systems are negative. PHYSICAL EXAMINATION: VITAL SIGNS: Temperature is 98.2, T-max 103.0, blood pressure 87/69, heart rate 101, respiratory rate 28, pulse oximetry is 95% on room air. BMI 39. GENERAL: The patient is propped up in bed, awake, tired appearance. HEENT: Pupils equally round. Oral cavity pink. NECK: Supple. LUNGS: Clear to auscultation, nonlabored. HEART: S1 and S2, tachycardic ABDOMEN: Obese, soft and nontender with bowel sounds present. BACK: Right CVAT. GENITOURINARY: Indwelling Arriaga in place. EXTREMITIES: No gross edema or cyanosis. SKIN: Warm to touch. No signs of rash. Peripheral IVs. NEUROLOGIC: Awake, answering questions appropriately. LABORATORY DATA: On admission, WBC 2.2, hemoglobin 10.8, platelets 101,000. Sodium 136, potassium 3.3, total CO2 16, creatinine 1.7, BUN 25, glucose 171. Lactic acid 3.7 from 4.4, total bilirubin 0.8, AST 51, ALT 88, albumin 2.8. Procalcitonin 43.40. Urinalysis, per HPI. Blood cultures show gram-negative rods in [address] abdomen/pelvis, per HPI, also showed a [id number] diffuse hepatic steatosis. Chest CTA showed no evidence of pulmonary emboli. IMPRESSION: 1. Gram-negative edwardo bacteremia with septic shock requiring vasopressor support, present on admission. 2. Lactic acidosis. 3. Pyelonephritis. 4. Leukopenia. 5. Ureter calculi with hydronephrosis, status post emergent right stent placement on 09/16. 6. Acute kidney injury. 7. Severe hepatic steatosis. 8. Obesity. PLAN: We will dose with meropenem. Awaiting GNR identification and susceptibilities. Repeat labs now and in the morning. Continue to monitor urine output and renal function closely. Discussed with nursing. Thank you, Dr. Rivera for asking us to participate in this patient's care. Should you have further questions or concerns, please call. SILVANO ANDREW MD DR: MICHAEL/brandon JOB#: [id number] / [id number]
--- NOTE | 2018-09-17 11:02 | HP ---
ADMIT DATE: CHIEF COMPLAINT: Abdominal pain, nausea, fever, weakness. HISTORY OF PRESENT ILLNESS: The patient is a pleasant healthy 38-year-old female, who had a kidney stone many years ago. Once again, she presents with signs of having kidney stones. She got right flank pain, some nausea. She has been short of breath. We did a CAT scan. She had two stones and was quite sick. She had a temperature of 103. She had a lactic acidosis, tachycardic and hypotensive. She was taken emergently to cystoscopy last night. Two stones were removed. Now, she is in the ICU on a Levophed drip. PAST MEDICAL HISTORY: Kidney stone and . ALLERGIES: None. FAMILY HISTORY: Kidney stones. SOCIAL HISTORY: She is a [id number] mom. She is . Her works, doing [employer]. She does not drink, smoke, or take drugs. MEDICATIONS: Reviewed, please refer to the MRAD. REVIEW OF SYSTEMS: GENERAL: No history of weight change, weakness or fevers. SKIN: No bruising, hair changes or rashes. EYES: No blurred, double or loss of vision. NOSE AND THROAT: No history of nosebleeds, hoarseness or sore throat. HEART: No history of palpitations, chest pain or shortness of breath on exertion. LUNGS: She complains of shortness of breath. GASTROINTESTINAL: Denies changes in appetite, nausea, vomiting, diarrhea or constipation. GENITOURINARY: No history of frequency, urgency, hesitancy or nocturia. NEUROLOGIC: Denies history of numbness, tingling, tremor or weakness. PSYCHIATRIC: No history of panic, anxiety or depression. ENDOCRINE: No history of heat or cold intolerance, polyuria or polydipsia. EXTREMITIES: Denies muscle weakness, joint pain, pain on walking or stiffness. PHYSICAL EXAMINATION: VITALS: Within normal limits and are stable. GENERAL: No apparent distress. Alert and oriented. HEENT: Head is normocephalic, atraumatic, pupils were equally round and reactive to light and accommodation. NECK: Supple, no JVD, no thyromegaly was noted. LUNGS: She is tachypneic. HEART: Her heart sounds are tachycardic at 103 beats per minute. ABDOMEN: Soft, nontender. Positive bowel sounds no organomegaly, normal bowel sounds. EXTREMITIES: Without any cyanosis, clubbing, or edema. Pedal pulses intact, Homans sign is negative. NEUROLOGIC: Normal speech, normal tone. A and O x 3, moves all extremities, no obvious focal deficits. PSYCHIATRIC: Normal affect, normal mood. Stable. SKIN: No ulcerations or rashes, good skin turgor, no jaundice. VASCULAR: Good capillary refill, neurovascular bundle appears to be intact. ASSESSMENT AND PLAN: Resolving sepsis after renal stones. The patient has been admitted. We are given IV antibiotics. We did consult Urology. We appreciate Dr. Ryan rapid intervention. DVT prophylaxis. Home meds, PT, OT, frequent labs, ICU monitoring. GABO HORNE DO DR: STACEY/brandon JOB#: [id number] / [id number]
[2018-09-17 11:22] LABS: CALCIUM 7.3 mg/dL (8.5-10.1); CREATININE 2.2 mg/dL (0.6-1.0); GFR 25.3; POTASSIUM 4.2 mmol/L (3.5-5.1)
[2018-09-17 12:39] LABS: BASE EXCESS ABG -19 mmol/L (-3-3); HCO3 ABG 8 mmol/L (21-28); PCO2 ABG 21 mmHg (35-46); PO2 ABG 91 mmHg (85-108); SAT O2 ABG 95 % (92-99)
[2018-09-17 12:41] LABS: FIO2 ABG 21
[2018-09-17] MEDS ORDERED: SODIUM BICARB ADULT 8.4% 50 MEQ/50 ML DISP.SYRIN. IV ONE (13:30)
--- NOTE | 2018-09-17 13:57 | PDOC2 ---
CONSULT Date of Consult Date of Consult DATE: 09/17/18 TIME: 13:38 Reason for Consult Reason for Consult: DOLLY Source Source: Chart review, Patient History of Present Illness Reason for Visit: Pt is a 38-year-old female who was driving back from [place] 2 days ago when she developed a sudden onset of back pain and need to urinate. She went to the bathroom and noticed blood in her urine. She took ibuprofen for pain relief. The following day, she continued to have pain and developed shaking chills, subjective fevers, body aches and shortness of air. On arrival to the ER, she had a fever of 103. She became hypotensive requiring vasopressor support. A CT abdomen/pelvis revealed a 5 mm right distal ureter calculus with mild right hydronephrosis and perinephric stranding as well as a 3 mm right renal calculi. She underwent an urgent cystoscopy with right ureter stent placement. Nephrology Consulted for DOLLY and metabolic acidosis Currently she feels better. She denies abdominal pain, nausea,vomiting or diarrhea. PMhx significant for Renal calculi 2016 . Pansensitive Escherichia coli UTI. Past Medical History Cardiovascular: No pertinent hx Pulmonary: No pertinent hx GI: No pertinent hx Heme/Onc: No pertinent hx Hepatobiliary: No pertinent hx Psych: No pertinent hx Rheumatologic: No pertinent hx Infectious disease: No pertinent hx Renal/: No pertinent hx Endocrine: No pertinent hx Past Surgical History Past Surgical History: Family History Family History: Family History Unknown Social History ALCOHOL: none Drugs: None Current Medications Current Medications Current Medications Sodium Chloride 1,000 ml @ 1,000 mls/hr 1X ONCE IV Last administered on 09/16/18at 20:20; Start 09/16/18 at 20:15; Stop 09/16/18 at 21:14; Status DC Sodium Chloride 1,000 ml @ 1,000 mls/hr 1X ONCE IV Last administered on 09/16/18at 20:20; Start 09/16/18 at 20:15; Stop 09/16/18 at 21:14; Status DC Acetaminophen (Tylenol) 1,000 mg 1X ONCE PO Last administered on 09/16/18at 20:25; Start 09/16/18 at 20:15; Stop 09/16/18 at 20:16; Status DC Fentanyl Citrate (Fentanyl 2ml Vial) 50 mcg 1X ONCE IV Last administered on 09/16/18at 20:25; Start 09/16/18 at 20:15; Stop 09/16/18 at 20:16; Status DC Ceftriaxone Sodium (Rocephin) 1 gm 1X ONCE IVP Last administered on 09/16/18at 20:25; Start 09/16/18 at 20:15; Stop 09/16/18 at 20:16; Status DC Sodium Chloride 1,000 ml @ 1,560 mls/hr Q39M IV Last administered on 09/16/18at 21:39; Start 09/16/18 at 20:45; Stop 09/16/18 at 21:45; Status DC Iohexol (Omnipaque 350 Mg/ml) 75 ml 1X ONCE IV Last administered on 09/16/18at 21:04; Start 09/16/18 at 20:45; Stop 09/16/18 at 20:46; Status DC Info (CONTRAST GIVEN -- Rx MONITORING) 1 each PRN DAILY PRN MC SEE COMMENTS; Start 09/16/18 at 20:45; Stop 09/18/18 at 20:44 Fentanyl Citrate (Fentanyl 2ml Vial) 50 mcg 1X ONCE IV Last administered on 09/16/18at 21:27; Start 09/16/18 at 21:30; Stop 09/16/18 at 21:31; Status DC Sodium Chloride 1,000 ml @ 150 mls/hr Q6H40M IV Last administered on 09/17/18at 04:52; Start 09/16/18 at 22:00; Stop 09/17/18 at 21:59 Sevoflurane (Ultane) 30 ml STK-MED ONCE IH ; Start 09/16/18 at 22:57; Stop 09/16/18 at 22:58; Status DC Propofol 20 ml @ As Directed STK-MED ONCE IV ; Start 09/16/18 at 22:58; Stop 09/16/18 at 22:59; Status DC Lidocaine HCl (Lidocaine Pf 2% Vial) 5 ml STK-MED ONCE .ROUTE ; Start 09/16/18 at 22:58; Stop 09/16/18 at 22:59; Status DC Dexamethasone Sodium Phosphate (Decadron) 4 mg STK-MED ONCE .ROUTE ; Start 09/16/18 at 22:58; Stop 09/16/18 at 22:59; Status DC Ketorolac Tromethamine (Toradol For Or Only) 30 mg STK-MED ONCE INJ ; Start 09/16/18 at 22:58; Stop 09/16/18 at 22:59; Status DC Ondansetron HCl (Zofran) 4 mg STK-MED ONCE .ROUTE ; Start 09/16/18 at 22:58; Stop 09/16/18 at 22:59; Status DC Ephedrine Sulfate (ePHEDrine PF IN SALINE SYRINGE) 50 mg STK-MED ONCE IV ; Start 09/16/18 at 23:23; Stop 09/16/18 at 23:24; Status DC Phenylephrine HCl (PHENYLEPHRINE in 0.9% NACL PF) 1 mg STK-MED ONCE IV ; Start 09/16/18 at 23:23; Stop 09/16/18 at 23:24; Status DC Iohexol (Omnipaque 300 Mg/ml) 50 ml STK-MED ONCE .ROUTE Last administered on 09/16/18at 23:50; Start 09/16/18 at 22:23; Stop 09/16/18 at 23:23; Status DC Albumin Human 500 ml @ As Directed STK-MED ONCE IV ; Start 09/16/18 at 23:43; Stop 09/16/18 at 23:44; Status DC Vasopressin (Vasostrict) 20 unit STK-MED ONCE .ROUTE ; Start 09/16/18 at 23:48; Stop 09/16/18 at 23:49; Status DC Albumin Human 500 ml @ 500 mls/hr 1X ONCE IV Last administered on 09/17/18at 01:00; Start 09/17/18 at 01:00; Stop 09/17/18 at 01:59; Status DC Albumin Human 500 ml @ 125 mls/hr 1X ONCE IV ; Start 09/17/18 at 00:45; Stop 09/17/18 at 04:44; Status UNV Ondansetron HCl (Zofran) 4 mg PRN Q6HRS PRN IV NAUSEA/VOMITING; Start 09/17/18 at 01:00; Stop 09/17/18 at 10:40; Status DC Fentanyl Citrate (Fentanyl 2ml Vial) 25 mcg PRN Q5MIN PRN IV MILD PAIN 1-3; Start 09/17/18 at 01:00; Stop 09/17/18 at 10:40; Status DC Fentanyl Citrate (Fentanyl 2ml Vial) 50 mcg PRN Q5MIN PRN IV MODERATE TO SEVERE PAIN; Start 09/17/18 at 01:00; Stop 09/17/18 at 10:40; Status DC Morphine Sulfate (Morphine Sulfate) 1 mg PRN Q10MIN PRN IV SEVERE PAIN 7-10; Start 09/17/18 at 01:00; Stop 09/17/18 at 10:40; Status DC Ringer's Solution 1,000 ml @ 30 mls/hr Q24H IV ; Start 09/17/18 at 00:57; Stop 09/17/18 at 10:40; Status DC Lidocaine HCl (Xylocaine-Mpf 1% 2ml Vial) 2 ml PRN 1X PRN ID PRIOR TO IV START; Start 09/17/18 at 01:00; Stop 09/17/18 at 10:40; Status DC Hydromorphone HCl (Dilaudid) 0.5 mg PRN Q10MIN PRN IV SEV PAIN, Second choice; Start 09/17/18 at 01:00; Stop 09/17/18 at 10:40; Status DC Prochlorperazine Edisylate (Compazine) 5 mg PACU PRN PRN IV NAUSEA, MRX1; Start 09/17/18 at 01:00; Stop 09/17/18 at 10:40; Status DC Norepinephrine Bitartrate 250 ml @ 20.757 mls/ hr CONT PRN IV SEE I/O RECORD Last administered on 09/17/18at 08:26; Start 09/17/18 at 02:00 Acetaminophen (Tylenol) 650 mg PRN Q6HRS PRN PO MIGRAINE HEADACHE Last administered on 09/17/18at 02:31; Start 09/17/18 at 02:00 Morphine Sulfate (Morphine Sulfate) 1 mg PRN Q2HR PRN IV MODERATE PAIN 4-6 Last administered on 09/17/18at 02:28; Start 09/17/18 at 02:00 Morphine Sulfate (Morphine Sulfate) 2 mg PRN Q2HR PRN IV SEVERE PAIN 7-10 Last administered on 09/17/18at 07:45; Start 09/17/18 at 02:00 Meropenem 500 mg/ Sodium Chloride 50 ml @ 100 mls/hr Q6HRS IV Last administered on 09/17/18at 11:54; Start 09/17/18 at 10:00 Sodium Bicarbonate (Sodium Bicarb Adult 8.4% Syr) 100 meq 1X ONCE IV Last administered on 09/17/18at 12:54; Start 09/17/18 at 13:30; Stop 09/17/18 at 13:31; Status DC Lactobacillus Rhamnosus (Culturelle) 1 cap BID PO ; Start 09/17/18 at 21:00 Active Scripts Active Levaquin (Levofloxacin) 500 Mg Tablet 500 Mg PO DAILY Reported Tramadol Hcl 50 Mg Tablet 1 Tab PO PRN Q6HRS Allergies Allergies: Coded Allergies: No Known Drug Allergies (Unverified , 11/28/13) ROS Review of System Per HPI Physical Exam Physical Exam GENERAL: NAD HEENT: OM moist NECK: Supple. LUNGS: Clear to auscultation, nonlabored. HEART: S1 and S2, ABDOMEN: Obese, soft and nontender with bowel sounds present. BACK: Right CVAT. GENITOURINARY: Indwelling Arriaga in place. EXTREMITIES: No gross edema or cyanosis. SKIN: Warm to touch. No signs of rash. NEUROLOGIC: Awake, answering questions appropriately. Vital Signs Vital Signs Date Time Temp Pulse Resp B/P (MAP) Pulse Ox O2 Delivery O2 Flow Rate FiO2 09/17/18 13:00 120 25 135/96 (109) 99 Room Air 09/17/18 11:56 97.5 97.5 09/17/18 04:00 6 Assessment & Plan DOLLY - 2/2 Ureter calculi with hydronephrosis, Pyelonephritis s/p Cystoscopy with right ureteral stent placement and right retrograde pyelogram Worsening of renal function, Improvement in UOP with IVF Continue IVF, supportive care, Monitor Metabolic acidosis- IV bicarb,Rito Rn Ureter calculi with hydronephrosis, status post emergent right stent placement on 09/16. Gram-negative edwardo bacteremia with septic shock requiring vasopressor support Pyelonephritis. Leukopenia. Severe hepatic steatosis. Labs Labs Laboratory Tests Test 09/16/18 19:38 09/16/18 19:50 09/16/18 20:03 09/16/18 20:10 Urine Collection Type Unknown Urine Color Yellow Urine Clarity Cloudy Urine pH 5.5 Urine Specific [place] 1.020 Urine Protein 100 mg/dL (NEG-TRACE) Urine Glucose (UA) 100 mg/dL (NEG) Urine Ketones (Stick) Negative mg/dL (NEG) Urine Blood Large (NEG) Urine Nitrite Negative (NEG) Urine Bilirubin Negative (NEG) Urine Urobilinogen Dipstick 1.0 mg/dL (0.2 mg/dL) Urine Leukocyte Esterase Moderate (NEG) Urine RBC 0 /HPF (0-2) Urine WBC >40 /HPF (0-4) Urine Squamous Epithelial Cells Mod /LPF Urine Bacteria Moderate /HPF (0-FEW) Urine Mucus Slight /LPF Urine Opiates Screen Neg (NEG) Urine Methadone Screen Neg (NEG) Urine Barbiturates Neg (NEG) Urine Phencyclidine Screen Neg (NEG) Urine Amphetamine/Methamphetamine Neg (NEG) Urine Benzodiazepines Screen Neg (NEG) Urine Cocaine Screen Neg (NEG) Urine Cannabinoids Screen Neg (NEG) Urine Ethyl Alcohol Neg (NEG) Bedside Urine HCG, Qualitative Hcg negative (Negative) White Blood Count 2.2 x10^3/uL (4.0-11.0) Red Blood Count 4.52 x10^6/uL (3.50-5.40) Hemoglobin 12.8 g/dL (12.0-15.5) Hematocrit 38.5 % (36.0-47.0) Mean Corpuscular Volume 85 fL (79-100) Mean Corpuscular Hemoglobin 28 pg (25-35) Mean Corpuscular Hemoglobin Concent 33 g/dL (31-37) Red Cell Distribution Width 15.3 % (11.5-14.5) Platelet Count 101 x10^3/uL (140-400) Neutrophils (%) (Auto) 63 % (31-73) Lymphocytes (%) (Auto) 32 % (24-48) Monocytes (%) (Auto) 2 % (0-9) Eosinophils (%) (Auto) 3 % (0-3) Basophils (%) (Auto) 0 % (0-3) Neutrophils # (Auto) 1.4 x10^3/uL (1.8-7.7) Lymphocytes # (Auto) 0.7 x10^3/uL (1.0-4.8) Monocytes # (Auto) 0.0 x10^3/uL (0.0-1.1) Eosinophils # (Auto) 0.1 x10^3/uL (0.0-0.7) Basophils # (Auto) 0.0 x10^3/uL (0.0-0.2) Prothrombin Time 16.6 SEC (11.7-14.0) Prothromb Time International Ratio 1.4 (0.8-1.1) Sodium Level 137 mmol/L (136-145) Potassium Level 3.4 mmol/L (3.5-5.1) Chloride Level 102 mmol/L (98-107) Carbon Dioxide Level 18 mmol/L (21-32) Anion Gap 17 (6-14) 20 mmol/L (6-14) Blood Urea Nitrogen 25 mg/dL (7-20) Creatinine 1.7 mg/dL (0.6-1.0) Estimated GFR (Cockcroft-Gault) 34.0 BUN/Creatinine Ratio 15 (6-20) Glucose Level 171 mg/dL (70-99) 168 mg/dL (70-99) Lactic Acid Level 4.4 mmol/L (0.4-2.0) Calcium Level 8.2 mg/dL (8.5-10.1) Total Bilirubin 0.8 mg/dL (0.2-1.0) Aspartate Amino Transf (AST/SGOT) 51 U/L (15-37) Alanine Aminotransferase (ALT/SGPT) 88 U/L (14-59) Alkaline Phosphatase 230 U/L (46-116) Troponin I Quantitative < 0.017 ng/mL (0.000-0.055) Total Protein 6.9 g/dL (6.4-8.2) Albumin 2.8 g/dL (3.4-5.0) Albumin/Globulin Ratio 0.7 (1.0-1.7) Lipase 76 U/L (73-393) Procalcitonin 43.40 ng/mL (0.00-0.10) Bedside Hemoglobin 13.6 g/dL (12-15) Bedside Hematocrit 40 % (36-40) Bedside Sodium 136 mmol/L (135-145) Bedside Potassium 3.3 mmol/L (3.5-5.0) Bedside Chloride 104 mmol/L (98-110) Bedside Total CO2 16 mmol/L (23-32) Bedside Blood Urea Nitrogen 24 mg/dL (8-26) Bedside Creatinine 1.5 mg/dL (0.5-1.4) Bedside Ionized Calcium (Chris) 1.13 mmol/L (1.13-1.32) Test 09/16/18 23:10 09/17/18 10:25 09/17/18 12:25 Lactic Acid Level 3.7 mmol/L (0.4-2.0) Sodium Level 135 mmol/L (136-145) Potassium Level 4.2 mmol/L (3.5-5.1) Chloride Level 101 mmol/L (98-107) Carbon Dioxide Level 9 mmol/L (21-32) Anion Gap 25 (6-14) Blood Urea Nitrogen 30 mg/dL (7-20) Creatinine 2.2 mg/dL (0.6-1.0) Estimated GFR (Cockcroft-Gault) 25.3 Glucose Level 178 mg/dL (70-99) Calcium Level 7.3 mg/dL (8.5-10.1) O2 Saturation 95 % (92-99) Arterial Blood pH 7.17 (7.35-7.45) Arterial Blood pCO2 at Patient Temp 21 mmHg (35-46) Arterial Blood pO2 at Patient Temp 91 mmHg (85-108) Arterial Blood HCO3 8 mmol/L (21-28) Arterial Blood Base Excess -19 mmol/L (-3-3) FiO2 21 Laboratory Tests Test 09/16/18 19:38 09/16/18 19:50 09/16/18 20:03 09/16/18 20:10 Urine Collection Type Unknown Urine Color Yellow Urine Clarity Cloudy Urine pH 5.5 Urine Specific [place] 1.020 Urine Protein 100 mg/dL (NEG-TRACE) Urine Glucose (UA) 100 mg/dL (NEG) Urine Ketones (Stick) Negative mg/dL (NEG) Urine Blood Large (NEG) Urine Nitrite Negative (NEG) Urine Bilirubin Negative (NEG) Urine Urobilinogen Dipstick 1.0 mg/dL (0.2 mg/dL) Urine Leukocyte Esterase Moderate (NEG) Urine RBC 0 /HPF (0-2) Urine WBC >40 /HPF (0-4) Urine Squamous Epithelial Cells Mod /LPF Urine Bacteria Moderate /HPF (0-FEW) Urine Mucus Slight /LPF Urine Opiates Screen Neg (NEG) Urine Methadone Screen Neg (NEG) Urine Barbiturates Neg (NEG) Urine Phencyclidine Screen Neg (NEG) Urine Amphetamine/Methamphetamine Neg (NEG) Urine Benzodiazepines Screen Neg (NEG) Urine Cocaine Screen Neg (NEG) Urine Cannabinoids Screen Neg (NEG) Urine Ethyl Alcohol Neg (NEG) Bedside Urine HCG, Qualitative Hcg negative (Negative) White Blood Count 2.2 x10^3/uL (4.0-11.0) Red Blood Count 4.52 x10^6/uL (3.50-5.40) Hemoglobin 12.8 g/dL (12.0-15.5) Hematocrit 38.5 % (36.0-47.0) Mean Corpuscular Volume 85 fL (79-100) Mean Corpuscular Hemoglobin 28 pg (25-35) Mean Corpuscular Hemoglobin Concent 33 g/dL (31-37) Red Cell Distribution Width 15.3 % (11.5-14.5) Platelet Count 101 x10^3/uL (140-400) Neutrophils (%) (Auto) 63 % (31-73) Lymphocytes (%) (Auto) 32 % (24-48) Monocytes (%) (Auto) 2 % (0-9) Eosinophils (%) (Auto) 3 % (0-3) Basophils (%) (Auto) 0 % (0-3) Neutrophils # (Auto) 1.4 x10^3/uL (1.8-7.7) Lymphocytes # (Auto) 0.7 x10^3/uL (1.0-4.8) Monocytes # (Auto) 0.0 x10^3/uL (0.0-1.1) Eosinophils # (Auto) 0.1 x10^3/uL (0.0-0.7) Basophils # (Auto) 0.0 x10^3/uL (0.0-0.2) Prothrombin Time 16.6 SEC (11.7-14.0) Prothromb Time International Ratio 1.4 (0.8-1.1) Sodium Level 137 mmol/L (136-145) Potassium Level 3.4 mmol/L (3.5-5.1) Chloride Level 102 mmol/L (98-107) Carbon Dioxide Level 18 mmol/L (21-32) Anion Gap 17 (6-14) 20 mmol/L (6-14) Blood Urea Nitrogen 25 mg/dL (7-20) Creatinine 1.7 mg/dL (0.6-1.0) Estimated GFR (Cockcroft-Gault) 34.0 BUN/Creatinine Ratio 15 (6-20) Glucose Level 171 mg/dL (70-99) 168 mg/dL (70-99) Lactic Acid Level 4.4 mmol/L (0.4-2.0) Calcium Level 8.2 mg/dL (8.5-10.1) Total Bilirubin 0.8 mg/dL (0.2-1.0) Aspartate Amino Transf (AST/SGOT) 51 U/L (15-37) Alanine Aminotransferase (ALT/SGPT) 88 U/L (14-59) Alkaline Phosphatase 230 U/L (46-116) Troponin I Quantitative < 0.017 ng/mL (0.000-0.055) Total Protein 6.9 g/dL (6.4-8.2) Albumin 2.8 g/dL (3.4-5.0) Albumin/Globulin Ratio 0.7 (1.0-1.7) Lipase 76 U/L (73-393) Procalcitonin 43.40 ng/mL (0.00-0.10) Bedside Hemoglobin 13.6 g/dL (12-15) Bedside Hematocrit 40 % (36-40) Bedside Sodium 136 mmol/L (135-145) Bedside Potassium 3.3 mmol/L (3.5-5.0) Bedside Chloride 104 mmol/L (98-110) Bedside Total CO2 16 mmol/L (23-32) Bedside Blood Urea Nitrogen 24 mg/dL (8-26) Bedside Creatinine 1.5 mg/dL (0.5-1.4) Bedside Ionized Calcium (Chris) 1.13 mmol/L (1.13-1.32) Test 09/16/18 23:10 09/17/18 10:25 09/17/18 12:25 Lactic Acid Level 3.7 mmol/L (0.4-2.0) Sodium Level 135 mmol/L (136-145) Potassium Level 4.2 mmol/L (3.5-5.1) Chloride Level 101 mmol/L (98-107) Carbon Dioxide Level 9 mmol/L (21-32) Anion Gap 25 (6-14) Blood Urea Nitrogen 30 mg/dL (7-20) Creatinine 2.2 mg/dL (0.6-1.0) Estimated GFR (Cockcroft-Gault) 25.3 Glucose Level 178 mg/dL (70-99) Calcium Level 7.3 mg/dL (8.5-10.1) O2 Saturation 95 % (92-99) Arterial Blood pH 7.17 (7.35-7.45) Arterial Blood pCO2 at Patient Temp 21 mmHg (35-46) Arterial Blood pO2 at Patient Temp 91 mmHg (85-108) Arterial Blood HCO3 8 mmol/L (21-28) Arterial Blood Base Excess -19 mmol/L (-3-3) FiO2 21 Review All relevant outside records, renal labs, imaging studies, telemetry/EKG's were reviewed. Images Images CT scan w/o contrast -- A calculus in the right distal ureter measures 5 x 3 mm. There is mild right hydronephrosis and hydroureter with perinephric stranding. Additional right renal calculi measure 3 mm or less. There are no left renal or ureteral calculi. There are no suspicious renal lesions without contrast. The bladder is decompressed but demonstrates some wall thickening. OVIDIO LOPEZ MD Sep 17, 2018 13:57
[2018-09-17] MEDS ORDERED: SODIUM BICARBONATE VIAL 150 MEQ in IV DEXTROSE 5% 1,000 ML IV SCH (14:00)
[2018-09-17] MEDS: SODIUM BICARBONATE VIAL 150 MEQ in IV DEXTROSE 5% 1,000 ML IV SCH ×2 (14:19→22:55)
--- NOTE | 2018-09-17 14:54 | RAD ---
KUB 09/17/2018 INDICATION: Evaluate stent position COMPARISON STUDY: Intraoperative fluoroscopy during stent placement, yesterday Discussion: Single view of the abdomen demonstrates a right-sided double-J ureteral stent. Stent appears to be normal in position. No definitive nephrolithiasis is seen. Gaseous distention of the stomach is noted. The bowel gas pattern is nonobstructive. No acute osseous abnormalities are seen. Impression: Right-sided double-J ureteral stent appears to be in grossly normal position. Electronically signed by: Cresencio Ibrahim MD (09/17/2018 2:51 PM) [id number]
[2018-09-17 16:16] LABS: CALCIUM 7.2 mg/dL (8.5-10.1); GFR 28.2
[2018-09-17] MEDS: LACTOBACILLUS RHAMNOSUS GG 1 CAPSULE. PO SCH (20:29)
[2018-09-18] VITALS (15 sets, daily range): BP systolic 93–132; BP diastolic 62–90
[2018-09-18 04:37] LABS: BASO % 0 % (0-3); EOS # 0.8 x10^3/uL (0.0-0.7); EOS % 4 % (0-3); HEMATOCRIT 29.3 % (36.0-47.0); HEMOGLOBIN 9.7 g/dL (12.0-15.5); LYMPH # 1.7 x10^3/uL (1.0-4.8); LYMPH % 9 % (24-48); MEAN CORPUSCULAR HEMOGLOBIN 28 pg (25-35); MEAN CORPUSCULAR HGB CONC 33 g/dL (31-37); MEAN CORPUSCULAR VOLUME 85 fL (79-100); MONO # 0.8 x10^3/uL (0.0-1.1); MONO % 4 % (0-9); NEUT # 16.4 x10^3/uL (1.8-7.7); NEUT % 83 % (31-73); PLATELET COUNT 60 x10^3/uL (140-400); RED BLOOD COUNT 3.46 x10^6/uL (3.50-5.40); RED CELL DISTRIBUTION WIDTH 15.9 % (11.5-14.5); WHITE BLOOD COUNT 19.7 x10^3/uL (4.0-11.0)
[2018-09-18] MEDS: MEROPENEM 500 MG in IV NORMAL SALINE 50ML 50 ML IV SCH ×3 (06:00→17:29)
[2018-09-18] MEDS: SODIUM BICARBONATE VIAL 150 MEQ in IV DEXTROSE 5% 1,000 ML IV SCH (06:20)
[2018-09-18 07:52] LABS: ALBUMIN 2.4 g/dL (3.4-5.0); ALBUMIN/GLOBULIN RATIO 0.7 (1.0-1.7); CALCIUM 7.4 mg/dL (8.5-10.1); CREATININE 1.5 mg/dL (0.6-1.0); GFR 39.3; POTASSIUM 3.8 mmol/L (3.5-5.1); TOTAL BILIRUBIN 1.3 mg/dL (0.2-1.0)
--- NOTE | 2018-09-18 08:48 | PDOC ---
JONATHAN HUANG STRIP CUTTER 09/18/18 0848: SUBJECTIVE Subjective Urine output is improved. She was seen by Renal yesterday and given Bicarb. Plan is for her to go to the floor later today. Patient has some soreness and pain on the right side but overall feeling better; she is ok with going up to medical floor later. OBJECTIVE Objective Physical Exam: General appearance: Alert and Oriented Head: Normocephalic, without obvious abnormality Eyes: conjunctivae/corneas clear. PERRL, EOM's intact. Fundi benign Back:+ slight CVA pain on the right side, none on the left. Lungs: Regular respirations, non labored breathing Abdomen: soft, obese. She is slightly tender in the RLQ, non tender other areas. No masses, no organomegaly Pelvic: + Arriaga catheter in place draining clear yellow urine. Device in good working order. Psych: Cooperative, appropriate with examiner Vital Signs Vital Signs Date Time Temp Pulse Resp B/P (MAP) Pulse Ox O2 Delivery O2 Flow Rate FiO2 09/18/18 04:53 84 12 103/74 (84) 98 09/18/18 04:00 Room Air 09/18/18 04:00 98.0 82 12 93/62 (72) 95 98.0 09/18/18 03:00 84 12 98/66 (77) 95 09/18/18 02:00 84 12 102/62 (75) 95 09/18/18 01:00 87 14 99/66 (77) 95 09/18/18 00:00 97.7 88 15 97/69 (78) 94 97.7 09/17/18 23:59 Room Air 09/17/18 23:54 15 96 Room Air 09/17/18 23:24 17 96 Room Air 09/17/18 23:00 88 14 98/70 (79) 95 09/17/18 22:00 88 19 102/64 (77) 97 09/17/18 21:00 88 22 96/70 (79) 97 09/17/18 20:45 88 22 106/64 (78) 98 09/17/18 20:00 97.7 92 22 101/66 (78) 98 97.7 09/17/18 20:00 Room Air 09/17/18 19:00 89 22 101/64 (76) 98 09/17/18 18:26 104/74 (84) 09/17/18 17:59 89 24 103/73 (83) 99 Room Air 09/17/18 17:42 19 99 Room Air 09/17/18 17:12 28 99 Room Air 6.0 09/17/18 17:00 91 19 145/90 (108) 99 Room Air 09/17/18 16:00 92 28 132/78 (96) 99 Room Air 09/17/18 16:00 Room Air 09/17/18 15:30 120/92 (101) 09/17/18 15:00 97.4 93 20 135/92 (106) 98 Room Air 97.4 09/17/18 14:30 135/92 (106) 09/17/18 14:21 144/96 (112) 09/17/18 14:02 133/96 (108) 09/17/18 14:00 95 25 161/112 (128) 99 Room Air 09/17/18 13:00 120 25 135/96 (109) 99 Room Air 09/17/18 12:00 Room Air 09/17/18 11:56 97.5 98 28 119/92 (101) 98 Room Air 97.5 09/17/18 11:00 99 23 136/95 (109) 97 Room Air 09/17/18 10:00 101 23 102/81 (88) 97 Room Air 09/17/18 09:00 101 22 111/85 (94) 98 Room Air I & O Intake and Output 09/18/18 06:59 Intake Total 3404 ml Output Total 1420 ml Balance 1984 ml Intake Oral 1120 ml IV Total 2284 ml Output Urine Total 1420 ml PHYSICAL EXAM Physical Exam Physical Exam: General appearance: Alert and Oriented Head: Normocephalic, without obvious abnormality Eyes: conjunctivae/corneas clear. PERRL, EOM's intact. Fundi benign Back:+ slight CVA pain on the right side, none on the left. Lungs: Regular respirations, non labored breathing Abdomen: soft, obese. She is slightly tender in the RLQ, non tender other areas. No masses, no organomegaly Pelvic: + Arriaga catheter in place draining clear yellow urine. Device in good working order. Psych: Cooperative, appropriate with examiner ASSESSMENT/PLAN Assessment/Plan Ok with Urology for her to go to medical floor. FINISH SANDER is improved down to 1.5. KUB shows stent is in good place. Will maintain Arriaga catheter for today and recheck creatinine tomorrow morning; if improved can perform voiding trial tomorrow morning. Patient will need a follow up ureteroscopy in 2-3 weeks; this information has been sent to [employer] production scheduler and social work consult has been ordered to help her with finances. COMMENT Lab Laboratory Tests Test 09/17/18 10:25 09/17/18 12:25 09/17/18 15:55 09/18/18 04:10 Sodium Level 135 mmol/L (136-145) 137 mmol/L (136-145) 139 mmol/L (136-145) Potassium Level 4.2 mmol/L (3.5-5.1) 4.0 mmol/L (3.5-5.1) 3.8 mmol/L (3.5-5.1) Chloride Level 101 mmol/L (98-107) 104 mmol/L (98-107) 103 mmol/L (98-107) Carbon Dioxide Level 9 mmol/L (21-32) 12 mmol/L (21-32) 22 mmol/L (21-32) Anion Gap 25 (6-14) 21 (6-14) 14 (6-14) Blood Urea Nitrogen 30 mg/dL (7-20) 31 mg/dL (7-20) 34 mg/dL (7-20) Creatinine 2.2 mg/dL (0.6-1.0) 2.0 mg/dL (0.6-1.0) 1.5 mg/dL (0.6-1.0) Estimated GFR (Cockcroft-Gault) 25.3 28.2 39.3 Glucose Level 178 mg/dL (70-99) 238 mg/dL (70-99) 175 mg/dL (70-99) Calcium Level 7.3 mg/dL (8.5-10.1) 7.2 mg/dL (8.5-10.1) 7.4 mg/dL (8.5-10.1) O2 Saturation 95 % (92-99) Arterial Blood pH 7.17 (7.35-7.45) Arterial Blood pCO2 at Patient Temp 21 mmHg (35-46) Arterial Blood pO2 at Patient Temp 91 mmHg (85-108) Arterial Blood HCO3 8 mmol/L (21-28) Arterial Blood Base Excess -19 mmol/L (-3-3) FiO2 21 White Blood Count 19.7 x10^3/uL (4.0-11.0) Red Blood Count 3.46 x10^6/uL (3.50-5.40) Hemoglobin 9.7 g/dL (12.0-15.5) Hematocrit 29.3 % (36.0-47.0) Mean Corpuscular Volume 85 fL (79-100) Mean Corpuscular Hemoglobin 28 pg (25-35) Mean Corpuscular Hemoglobin Concent 33 g/dL (31-37) Red Cell Distribution Width 15.9 % (11.5-14.5) Platelet Count 60 x10^3/uL (140-400) Neutrophils (%) (Auto) 83 % (31-73) Lymphocytes (%) (Auto) 9 % (24-48) Monocytes (%) (Auto) 4 % (0-9) Eosinophils (%) (Auto) 4 % (0-3) Basophils (%) (Auto) 0 % (0-3) Neutrophils # (Auto) 16.4 x10^3/uL (1.8-7.7) Lymphocytes # (Auto) 1.7 x10^3/uL (1.0-4.8) Monocytes # (Auto) 0.8 x10^3/uL (0.0-1.1) Eosinophils # (Auto) 0.8 x10^3/uL (0.0-0.7) Basophils # (Auto) 0.0 x10^3/uL (0.0-0.2) BUN/Creatinine Ratio 23 (6-20) Total Bilirubin 1.3 mg/dL (0.2-1.0) Aspartate Amino Transf (AST/SGOT) 227 U/L (15-37) Alanine Aminotransferase (ALT/SGPT) 198 U/L (14-59) Alkaline Phosphatase 160 U/L (46-116) Total Protein 6.0 g/dL (6.4-8.2) Albumin 2.4 g/dL (3.4-5.0) Albumin/Globulin Ratio 0.7 (1.0-1.7) Imaging [facility] 09/18/18 Impression: Right-sided double-J ureteral stent appears to be in grossly normal position. CARMEN SAVAGE MD 09/19/18 1310: ASSESSMENT/PLAN Assessment/Plan Agree with assessment and plan. JONATHAN HUANG APRN Sep 18, 2018 08:48 CARMEN SAVAGE MD Sep 19, 2018 13:10
--- NOTE | 2018-09-18 09:12 | PDOC ---
Infectious Disease Note Subjective Subjective Feeling better Less back pain No fevers last 24 hours. UO improving BP better, now off Levophed Denies chills/N/V/D ROS ROS per HPI Vital Sign Vital Signs Vital Signs Date Time Temp Pulse Resp B/P (MAP) Pulse Ox O2 Delivery O2 Flow Rate FiO2 09/18/18 04:53 84 12 103/74 (84) 98 09/18/18 04:00 Room Air 09/18/18 04:00 98.0 98.0 09/17/18 17:12 6.0 Physical Exam PHYSICAL EXAM GENERAL: Propped up in bed, alert, looks better HEENT: Pupils equally round. Oral cavity pink. NECK: Supple. LUNGS: Clear to auscultation, nonlabored. HEART: S1 and S2, regular ABDOMEN: Obese, soft and nontender with bowel sounds present. BACK: mild right CVAT. GENITOURINARY: Indwelling Arriaga in place. EXTREMITIES: No gross edema or cyanosis. SKIN: Warm to touch. No signs of rash. NEUROLOGIC: Alert, answering questions appropriately. PIV Labs Lab Laboratory Tests Test 09/17/18 10:25 09/17/18 12:25 09/17/18 15:55 09/18/18 04:10 Sodium Level 135 mmol/L (136-145) 137 mmol/L (136-145) 139 mmol/L (136-145) Potassium Level 4.2 mmol/L (3.5-5.1) 4.0 mmol/L (3.5-5.1) 3.8 mmol/L (3.5-5.1) Chloride Level 101 mmol/L (98-107) 104 mmol/L (98-107) 103 mmol/L (98-107) Carbon Dioxide Level 9 mmol/L (21-32) 12 mmol/L (21-32) 22 mmol/L (21-32) Anion Gap 25 (6-14) 21 (6-14) 14 (6-14) Blood Urea Nitrogen 30 mg/dL (7-20) 31 mg/dL (7-20) 34 mg/dL (7-20) Creatinine 2.2 mg/dL (0.6-1.0) 2.0 mg/dL (0.6-1.0) 1.5 mg/dL (0.6-1.0) Estimated GFR (Cockcroft-Gault) 25.3 28.2 39.3 Glucose Level 178 mg/dL (70-99) 238 mg/dL (70-99) 175 mg/dL (70-99) Calcium Level 7.3 mg/dL (8.5-10.1) 7.2 mg/dL (8.5-10.1) 7.4 mg/dL (8.5-10.1) O2 Saturation 95 % (92-99) Arterial Blood pH 7.17 (7.35-7.45) Arterial Blood pCO2 at Patient Temp 21 mmHg (35-46) Arterial Blood pO2 at Patient Temp 91 mmHg (85-108) Arterial Blood HCO3 8 mmol/L (21-28) Arterial Blood Base Excess -19 mmol/L (-3-3) FiO2 21 White Blood Count 19.7 x10^3/uL (4.0-11.0) Red Blood Count 3.46 x10^6/uL (3.50-5.40) Hemoglobin 9.7 g/dL (12.0-15.5) Hematocrit 29.3 % (36.0-47.0) Mean Corpuscular Volume 85 fL (79-100) Mean Corpuscular Hemoglobin 28 pg (25-35) Mean Corpuscular Hemoglobin Concent 33 g/dL (31-37) Red Cell Distribution Width 15.9 % (11.5-14.5) Platelet Count 60 x10^3/uL (140-400) Neutrophils (%) (Auto) 83 % (31-73) Lymphocytes (%) (Auto) 9 % (24-48) Monocytes (%) (Auto) 4 % (0-9) Eosinophils (%) (Auto) 4 % (0-3) Basophils (%) (Auto) 0 % (0-3) Neutrophils # (Auto) 16.4 x10^3/uL (1.8-7.7) Lymphocytes # (Auto) 1.7 x10^3/uL (1.0-4.8) Monocytes # (Auto) 0.8 x10^3/uL (0.0-1.1) Eosinophils # (Auto) 0.8 x10^3/uL (0.0-0.7) Basophils # (Auto) 0.0 x10^3/uL (0.0-0.2) BUN/Creatinine Ratio 23 (6-20) Total Bilirubin 1.3 mg/dL (0.2-1.0) Aspartate Amino Transf (AST/SGOT) 227 U/L (15-37) Alanine Aminotransferase (ALT/SGPT) 198 U/L (14-59) Alkaline Phosphatase 160 U/L (46-116) Total Protein 6.0 g/dL (6.4-8.2) Albumin 2.4 g/dL (3.4-5.0) Albumin/Globulin Ratio 0.7 (1.0-1.7) KUB Right-sided double-J ureteral stent appears to be in grossly normal position. Micro 09/16. BLOOD CULTURE Final GRAM NEGATIVE RODS IN 2 OF 4 BOTTLES (2 SETS) Objective Assessment GNR bacteremia with septic shock requiring vasopressor support, 09/16 - now off pressors Lactic acidosis Pyelonephritis Leukopenia - now leukocytosis s/p steroids Ureteral calculi with hydronephrosis s/p emergent right stent placement, 09/16 DOLLY Severe hepatic steatosis Obesity h/o E. coli (gracia-S) Plan Plan of Care Continue meropenem One time dose Rocephin in ER, 09/16 One time dose dexamethasone, 09/16 Monitor renal function/urine output f/u cultures F/u LFTs D/w nursing Critically ill Attending Co-Sign Attending Co-Sign The patient was seen and interviewed as well as examined at the bedside. The chart was reviewed. The case was discussed. Agree with the plan of care. WILLIAM WISE APRN Sep 18, 2018 09:12 SILVANO ANDREW MD Sep 18, 2018 12:40
--- NOTE | 2018-09-18 09:29 | PDOC ---
SUBJECTIVE ROS Stable overnight , Off pressors OBJECTIVE Vital Signs Vital Signs Date Time Temp Pulse Resp B/P (MAP) Pulse Ox O2 Delivery O2 Flow Rate FiO2 09/18/18 04:53 84 12 103/74 (84) 98 09/18/18 04:00 Room Air 09/18/18 04:00 98.0 98.0 09/17/18 17:12 6.0 I & 0 Intake and Output 09/18/18 06:59 Intake Total 3404 ml Output Total 1420 ml Balance 1984 ml Intake Oral 1120 ml IV Total 2284 ml Output Urine Total 1420 ml PHYSICAL EXAM Physical Exam GENERAL: NAD HEENT: OM moist NECK: Supple. LUNGS: Clear to auscultation, nonlabored. HEART: S1 and S2, ABDOMEN: Obese, soft and nontender with bowel sounds present. BACK: Right CVAT. GENITOURINARY: Indwelling Arriaga in place. EXTREMITIES: No gross edema or cyanosis. SKIN: Warm to touch. No signs of rash. NEUROLOGIC: Awake, answering questions appropriately. DIAGNOSIS/ASSESSMENT Assessment & Plan Assessment & Plan DOLLY - 2/2 Ureter calculi with hydronephrosis, Pyelonephritis s/p Cystoscopy with right ureteral stent placement and right retrograde pyelogram Improving renal function and urine output Supportive care, Monitor Metabolic acidosis- Corrected with IV Bicarb Decrease rate, switch to NS Ureter calculi with hydronephrosis, status post emergent right stent placement on 09/16. Gram-negative edwardo bacteremia with septic shock requiring vasopressor support Pyelonephritis. Leukopenia. Severe hepatic steatosis, Elevated LFT's Denies ETOH , Consult GI Discussed with RN COMMENT/RELEVANT DATA Meds Current Medications Medications (Trade) Dose Ordered Sig/Saad Start Time Stop Time Status Last Admin Dose Admin Acetaminophen (Tylenol) 650 mg PRN Q6HRS PRN 09/17/18 02:00 09/17/18 02:31 650 MG Albumin Human 500 ml @ 125 mls/hr 1X ONCE 09/17/18 00:45 09/17/18 04:44 UNV Ceftriaxone Sodium (Rocephin) 1 gm 1X ONCE 09/16/18 20:15 09/16/18 20:16 DC 09/16/18 20:25 1 GM Dexamethasone Sodium Phosphate (Decadron) 4 mg STK-MED ONCE 09/16/18 22:58 09/16/18 22:59 DC Ephedrine Sulfate (ePHEDrine PF IN SALINE SYRINGE) 50 mg STK-MED ONCE 09/16/18 23:23 09/16/18 23:24 DC Fentanyl Citrate (Fentanyl 2ml Vial) 50 mcg PRN Q5MIN PRN 09/17/18 01:00 09/17/18 10:40 DC Hydromorphone HCl (Dilaudid) 0.5 mg PRN Q10MIN PRN 09/17/18 01:00 09/17/18 10:40 DC Info (CONTRAST GIVEN -- Rx MONITORING) 1 each PRN DAILY PRN 09/16/18 20:45 09/18/18 20:44 Iohexol (Omnipaque 300 Mg/ml) 50 ml STK-MED ONCE 09/16/18 22:23 09/16/18 23:23 DC 09/16/18 23:50 6 ML Iohexol (Omnipaque 350 Mg/ml) 75 ml 1X ONCE 09/16/18 20:45 09/16/18 20:46 DC 09/16/18 21:04 75 ML Ketorolac Tromethamine (Toradol For Or Only) 30 mg STK-MED ONCE 09/16/18 22:58 09/16/18 22:59 DC Lactobacillus Rhamnosus (Culturelle) 1 cap BID 09/17/18 21:00 09/17/18 20:29 1 CAP Lidocaine HCl (Lidocaine Pf 2% Vial) 5 ml STK-MED ONCE 09/16/18 22:58 09/16/18 22:59 DC Lidocaine HCl (Xylocaine-Mpf 1% 2ml Vial) 2 ml PRN 1X PRN 09/17/18 01:00 09/17/18 10:40 DC Meropenem 500 mg/ Sodium Chloride 50 ml @ 100 mls/hr Q6HRS 09/17/18 10:00 09/17/18 23:37 100 MLS/HR Morphine Sulfate (Morphine Sulfate) 2 mg PRN Q2HR PRN 09/17/18 02:00 09/17/18 17:12 2 MG Norepinephrine Bitartrate 250 ml @ 20.757 mls/ hr CONT PRN 09/17/18 02:00 09/17/18 14:59 26.2 MLS/HR Ondansetron HCl (Zofran) 4 mg PRN Q6HRS PRN 09/17/18 01:00 09/17/18 10:40 DC Phenylephrine HCl (PHENYLEPHRINE in 0.9% NACL PF) 1 mg STK-MED ONCE 09/16/18 23:23 09/16/18 23:24 DC Prochlorperazine Edisylate (Compazine) 5 mg PACU PRN PRN 09/17/18 01:00 09/17/18 10:40 DC Propofol 20 ml @ As Directed STK-MED ONCE 09/16/18 22:58 09/16/18 22:59 DC Ringer's Solution 1,000 ml @ 30 mls/hr Q24H 09/17/18 00:57 09/17/18 10:40 DC Sevoflurane (Ultane) 30 ml STK-MED ONCE 09/16/18 22:57 09/16/18 22:58 DC Sodium Bicarbonate 150 meq/Dextrose 1,150 ml @ 150 mls/hr Q7H40M 09/17/18 15:00 09/17/18 22:55 150 MLS/HR Sodium Bicarbonate (Sodium Bicarb Adult 8.4% Syr) 100 meq 1X ONCE 09/17/18 13:30 09/17/18 13:31 DC 09/17/18 12:54 100 MEQ Sodium Chloride 1,000 ml @ 150 mls/hr Q6H40M 09/16/18 22:00 09/17/18 15:00 DC 09/17/18 04:52 150 MLS/HR Vasopressin (Vasostrict) 20 unit STK-MED ONCE 09/16/18 23:48 09/16/18 23:49 DC Lab Laboratory Tests Test 09/17/18 10:25 09/17/18 12:25 09/17/18 15:55 09/18/18 04:10 Sodium Level 135 mmol/L (136-145) 137 mmol/L (136-145) 139 mmol/L (136-145) Potassium Level 4.2 mmol/L (3.5-5.1) 4.0 mmol/L (3.5-5.1) 3.8 mmol/L (3.5-5.1) Chloride Level 101 mmol/L (98-107) 104 mmol/L (98-107) 103 mmol/L (98-107) Carbon Dioxide Level 9 mmol/L (21-32) 12 mmol/L (21-32) 22 mmol/L (21-32) Anion Gap 25 (6-14) 21 (6-14) 14 (6-14) Blood Urea Nitrogen 30 mg/dL (7-20) 31 mg/dL (7-20) 34 mg/dL (7-20) Creatinine 2.2 mg/dL (0.6-1.0) 2.0 mg/dL (0.6-1.0) 1.5 mg/dL (0.6-1.0) Estimated GFR (Cockcroft-Gault) 25.3 28.2 39.3 Glucose Level 178 mg/dL (70-99) 238 mg/dL (70-99) 175 mg/dL (70-99) Calcium Level 7.3 mg/dL (8.5-10.1) 7.2 mg/dL (8.5-10.1) 7.4 mg/dL (8.5-10.1) O2 Saturation 95 % (92-99) Arterial Blood pH 7.17 (7.35-7.45) Arterial Blood pCO2 at Patient Temp 21 mmHg (35-46) Arterial Blood pO2 at Patient Temp 91 mmHg (85-108) Arterial Blood HCO3 8 mmol/L (21-28) Arterial Blood Base Excess -19 mmol/L (-3-3) FiO2 21 White Blood Count 19.7 x10^3/uL (4.0-11.0) Red Blood Count 3.46 x10^6/uL (3.50-5.40) Hemoglobin 9.7 g/dL (12.0-15.5) Hematocrit 29.3 % (36.0-47.0) Mean Corpuscular Volume 85 fL (79-100) Mean Corpuscular Hemoglobin 28 pg (25-35) Mean Corpuscular Hemoglobin Concent 33 g/dL (31-37) Red Cell Distribution Width 15.9 % (11.5-14.5) Platelet Count 60 x10^3/uL (140-400) Neutrophils (%) (Auto) 83 % (31-73) Lymphocytes (%) (Auto) 9 % (24-48) Monocytes (%) (Auto) 4 % (0-9) Eosinophils (%) (Auto) 4 % (0-3) Basophils (%) (Auto) 0 % (0-3) Neutrophils # (Auto) 16.4 x10^3/uL (1.8-7.7) Lymphocytes # (Auto) 1.7 x10^3/uL (1.0-4.8) Monocytes # (Auto) 0.8 x10^3/uL (0.0-1.1) Eosinophils # (Auto) 0.8 x10^3/uL (0.0-0.7) Basophils # (Auto) 0.0 x10^3/uL (0.0-0.2) BUN/Creatinine Ratio 23 (6-20) Total Bilirubin 1.3 mg/dL (0.2-1.0) Aspartate Amino Transf (AST/SGOT) 227 U/L (15-37) Alanine Aminotransferase (ALT/SGPT) 198 U/L (14-59) Alkaline Phosphatase 160 U/L (46-116) Total Protein 6.0 g/dL (6.4-8.2) Albumin 2.4 g/dL (3.4-5.0) Albumin/Globulin Ratio 0.7 (1.0-1.7) Results All relevant outside records, renal labs, imaging studies, telemetry/EKG's were reviewed. OVIDIO LOPEZ MD Sep 18, 2018 09:29
[2018-09-18] MEDS: LACTOBACILLUS RHAMNOSUS GG 1 CAPSULE. PO SCH ×2 (09:59→21:25)
--- NOTE | 2018-09-18 11:48 | PDOC2 ---
GI CONSULT Reason For Consult: elevated LFTs, severe hepatic steatosis on CT HPI: HPI: 38 y/o female admitted w/ septic shock, GNR bacteremia, and distal ureteral calculi w/ perinephric stranding and hydronephrosis now s/p stent, off pressors, and tolerating diet in ICU. GI asked to see re: abnormal LFTs (bili 1.3, AST 227, ALT 198, Alk Phos 160) and hepatic steatosis on imaging. She denies liver history. No h/o hepatitis or blood transfusions. H/o heartburn during . No dysphagia. No chronic n/v - felt a little nauseated after eating for the first time today. Has some right-sided abd discomfort tracking to right flank. No diarrhea, constipation, hematochezia, or melena. No weight loss. No previous EGD or colonoscopy. No GB, pancreas, or PUD history. No NSAIDs. PMH: PMH: per HPI gestational diabetes tubal ligation FH: Family History: DM, Hypertension Social History: Smoke: No ALCOHOL: occassional Drugs: None ROS: GEN: +fever HEENT: Denies blurred vision, sore throat CV: Denies chest pain RESP: Denies shortness of air, cough GI: Per HPI : Denies hematuria, dysuria ENDO: Denies weight changes NEURO: Denies confusion, dizziness MSK: Denies weakness, joint pain/swelling SKIN: Denies jaundice, pruritus Vitals: Vitals: Vital Signs Date Time Temp Pulse Resp B/P (MAP) Pulse Ox O2 Delivery O2 Flow Rate FiO2 09/18/18 11:15 97.6 81 18 107/73 (84) 96 97.6 09/18/18 08:00 Room Air 09/17/18 17:12 6.0 Labs: Labs: Laboratory Tests Test 09/17/18 12:25 09/17/18 15:55 09/18/18 04:10 O2 Saturation 95 % (92-99) Arterial Blood pH 7.17 (7.35-7.45) Arterial Blood pCO2 at Patient Temp 21 mmHg (35-46) Arterial Blood pO2 at Patient Temp 91 mmHg (85-108) Arterial Blood HCO3 8 mmol/L (21-28) Arterial Blood Base Excess -19 mmol/L (-3-3) FiO2 21 Sodium Level 137 mmol/L (136-145) 139 mmol/L (136-145) Potassium Level 4.0 mmol/L (3.5-5.1) 3.8 mmol/L (3.5-5.1) Chloride Level 104 mmol/L (98-107) 103 mmol/L (98-107) Carbon Dioxide Level 12 mmol/L (21-32) 22 mmol/L (21-32) Anion Gap 21 (6-14) 14 (6-14) Blood Urea Nitrogen 31 mg/dL (7-20) 34 mg/dL (7-20) Creatinine 2.0 mg/dL (0.6-1.0) 1.5 mg/dL (0.6-1.0) Estimated GFR (Cockcroft-Gault) 28.2 39.3 Glucose Level 238 mg/dL (70-99) 175 mg/dL (70-99) Calcium Level 7.2 mg/dL (8.5-10.1) 7.4 mg/dL (8.5-10.1) White Blood Count 19.7 x10^3/uL (4.0-11.0) Red Blood Count 3.46 x10^6/uL (3.50-5.40) Hemoglobin 9.7 g/dL (12.0-15.5) Hematocrit 29.3 % (36.0-47.0) Mean Corpuscular Volume 85 fL (79-100) Mean Corpuscular Hemoglobin 28 pg (25-35) Mean Corpuscular Hemoglobin Concent 33 g/dL (31-37) Red Cell Distribution Width 15.9 % (11.5-14.5) Platelet Count 60 x10^3/uL (140-400) Neutrophils (%) (Auto) 83 % (31-73) Lymphocytes (%) (Auto) 9 % (24-48) Monocytes (%) (Auto) 4 % (0-9) Eosinophils (%) (Auto) 4 % (0-3) Basophils (%) (Auto) 0 % (0-3) Neutrophils # (Auto) 16.4 x10^3/uL (1.8-7.7) Lymphocytes # (Auto) 1.7 x10^3/uL (1.0-4.8) Monocytes # (Auto) 0.8 x10^3/uL (0.0-1.1) Eosinophils # (Auto) 0.8 x10^3/uL (0.0-0.7) Basophils # (Auto) 0.0 x10^3/uL (0.0-0.2) BUN/Creatinine Ratio 23 (6-20) Total Bilirubin 1.3 mg/dL (0.2-1.0) Aspartate Amino Transf (AST/SGOT) 227 U/L (15-37) Alanine Aminotransferase (ALT/SGPT) 198 U/L (14-59) Alkaline Phosphatase 160 U/L (46-116) Total Protein 6.0 g/dL (6.4-8.2) Albumin 2.4 g/dL (3.4-5.0) Albumin/Globulin Ratio 0.7 (1.0-1.7) Allergies: Coded Allergies: No Known Drug Allergies (Unverified , 11/28/13) Medications: Current Medications Medications (Trade) Dose Ordered Sig/Saad Route PRN Reason Start Time Stop Time Status Last Admin Dose Admin Sodium Bicarbonate (Sodium Bicarb Adult 8.4% Syr) 100 meq 1X ONCE IV 09/17/18 13:30 09/17/18 13:31 DC 09/17/18 12:54 Lactobacillus Rhamnosus (Culturelle) 1 cap BID PO 09/17/18 21:00 09/18/18 09:59 Sodium Bicarbonate 150 meq/Dextrose 1,150 ml @ 75 mls/hr [id number] IV 09/17/18 15:00 09/18/18 10:00 Imaging: Imaging: CXR IMPRESSION: 1. No confluent infiltrates. C/A/P CT IMPRESSION: 1. No pulmonary embolism. 2. 5 mm right distal ureteral calculus with mild right hydronephrosis and perinephric stranding. Correlate to exclude superimposed ascending infection. 3. 3 mm right renal calculus. 4. Moderate to severe diffuse hepatic steatosis. KUB Impression: Right-sided double-J ureteral stent appears to be in grossly normal position. PE: GEN: NAD HEENT: Atraumatic, PERRL LUNGS: CTAB HEART: RRR ABD: NABS, S/ND, uncomfortable right lateral abd to right flank EXTREMITY: No edema SKIN: No rashes, no jaundice NEURO/PSYCH: A & O �3 A/P: A/P: Septic shock, pyelonephritis, DOLLY, right ureteral calculi w/ hydronephrosis - better s/p stent w/ atbx Abnormal LFTs Hepatic steatosis, obesity, h/o gestational diabetes Anemia, thrombocytopenia, coagulopathy CRC screen - average risk -- LFTs likely 2/2 sepsis w/ fatty liver. Monitor labs, consider US. Additional recs per Dr. Ruelas. MARTÍNEZ KILGORE Sep 18, 2018 11:48
--- NOTE | 2018-09-18 12:30 | PDOC ---
[employer] PROGRESS NOTE Chief Complaint Chief Complaint Post-op cystoscopy day 1 Right Ureterolithiasis Right Hydronephrosis Sepsis Gestational diabetes Tubal ligation History of Present Illness History of Present Illness 09/18/18 Pt seen and examined in ICU Pt appears in NAD Pt is eating and talkative DW pt's family DW RN Reviewed pt's chart Vitals/I&O Vitals/I&O: Vital Signs Date Time Temp Pulse Resp B/P (MAP) Pulse Ox O2 Delivery O2 Flow Rate FiO2 09/18/18 11:15 97.6 81 18 107/73 (84) 96 97.6 09/18/18 08:00 Room Air 09/17/18 17:12 6.0 I & O 09/17/18 09/17/18 09/18/18 15:00 23:00 07:00 Intake Total 1220 ml 450 ml 1734 ml Output Total 470 ml 595 ml 455 ml Balance 750 ml -145 ml 1279 ml Physical Exam General: Alert, Cooperative, No acute distress Heart: Regular rate, Normal S1, Normal S2 Lungs: Clear Abdomen: Normal bowel sounds, Soft Extremities: No clubbing, No cyanosis Skin: No rashes, No breakdown Labs Labs: Laboratory Tests Test 09/17/18 12:25 09/17/18 15:55 09/18/18 04:10 O2 Saturation 95 % (92-99) Arterial Blood pH 7.17 (7.35-7.45) Arterial Blood pCO2 at Patient Temp 21 mmHg (35-46) Arterial Blood pO2 at Patient Temp 91 mmHg (85-108) Arterial Blood HCO3 8 mmol/L (21-28) Arterial Blood Base Excess -19 mmol/L (-3-3) FiO2 21 Sodium Level 137 mmol/L (136-145) 139 mmol/L (136-145) Potassium Level 4.0 mmol/L (3.5-5.1) 3.8 mmol/L (3.5-5.1) Chloride Level 104 mmol/L (98-107) 103 mmol/L (98-107) Carbon Dioxide Level 12 mmol/L (21-32) 22 mmol/L (21-32) Anion Gap 21 (6-14) 14 (6-14) Blood Urea Nitrogen 31 mg/dL (7-20) 34 mg/dL (7-20) Creatinine 2.0 mg/dL (0.6-1.0) 1.5 mg/dL (0.6-1.0) Estimated GFR (Cockcroft-Gault) 28.2 39.3 Glucose Level 238 mg/dL (70-99) 175 mg/dL (70-99) Calcium Level 7.2 mg/dL (8.5-10.1) 7.4 mg/dL (8.5-10.1) White Blood Count 19.7 x10^3/uL (4.0-11.0) Red Blood Count 3.46 x10^6/uL (3.50-5.40) Hemoglobin 9.7 g/dL (12.0-15.5) Hematocrit 29.3 % (36.0-47.0) Mean Corpuscular Volume 85 fL (79-100) Mean Corpuscular Hemoglobin 28 pg (25-35) Mean Corpuscular Hemoglobin Concent 33 g/dL (31-37) Red Cell Distribution Width 15.9 % (11.5-14.5) Platelet Count 60 x10^3/uL (140-400) Neutrophils (%) (Auto) 83 % (31-73) Lymphocytes (%) (Auto) 9 % (24-48) Monocytes (%) (Auto) 4 % (0-9) Eosinophils (%) (Auto) 4 % (0-3) Basophils (%) (Auto) 0 % (0-3) Neutrophils # (Auto) 16.4 x10^3/uL (1.8-7.7) Lymphocytes # (Auto) 1.7 x10^3/uL (1.0-4.8) Monocytes # (Auto) 0.8 x10^3/uL (0.0-1.1) Eosinophils # (Auto) 0.8 x10^3/uL (0.0-0.7) Basophils # (Auto) 0.0 x10^3/uL (0.0-0.2) BUN/Creatinine Ratio 23 (6-20) Total Bilirubin 1.3 mg/dL (0.2-1.0) Aspartate Amino Transf (AST/SGOT) 227 U/L (15-37) Alanine Aminotransferase (ALT/SGPT) 198 U/L (14-59) Alkaline Phosphatase 160 U/L (46-116) Total Protein 6.0 g/dL (6.4-8.2) Albumin 2.4 g/dL (3.4-5.0) Albumin/Globulin Ratio 0.7 (1.0-1.7) Review of Systems Review of Systems: No c/o headache No c/o N/V/D Assessment and Plan Assessmemt and Plan Assessment Post-op cystoscopy day 1 Right Ureterolithiasis Right Hydronephrosis Sepsis Gestational diabetes Tubal ligation Plan Transfer out of ICU Arriaga to bedside Encourage PO intake IV Abx (Meropenem) IVF DVT Prophylaxis Home meds Labs Discharge tomorrow if stable Comment Review of Relevant I have reviewed the following items chidi (where applicable) has been applied. Medications: Current Medications Medications (Trade) Dose Ordered Sig/Saad Route PRN Reason Start Time Stop Time Status Last Admin Dose Admin Sodium Bicarbonate (Sodium Bicarb Adult 8.4% Syr) 100 meq 1X ONCE IV 09/17/18 13:30 09/17/18 13:31 DC 09/17/18 12:54 Lactobacillus Rhamnosus (Culturelle) 1 cap BID PO 09/17/18 21:00 09/18/18 09:59 Sodium Bicarbonate 150 meq/Dextrose 1,150 ml @ 75 mls/hr [id number] IV 09/17/18 15:00 09/18/18 10:00 GABO HORNE III DO Sep 18, 2018 12:30
[2018-09-18] MEDS: MORPHINE SULFATE 2 MG/ML VIAL. IV PRN ×2 (12:38→21:25)
--- NOTE | 2018-09-18 15:20 | NUR ---
SS following for discharge planning. SS reviewed pt chart. Pt is from home and is currently on room air. No discharge needs noted at this time. SS will continue to follow for discharge planning.
--- NOTE | 2018-09-18 18:40 | NUR ---
Pt. arrived on unit at 1840 by wheelchair from ICU. Pt. in bed. Bed in lowest position, call light within reach. Will continue to monitor.
[2018-09-18] MEDS: IV NORMAL SALINE 1000ML BAG 1,000 ML IV SCH (21:26)
[2018-09-19 03:00] VITALS: BP 142/83
[2018-09-19] MEDS: MEROPENEM 500 MG in IV NORMAL SALINE 50ML 50 ML IV SCH ×3 (05:56→14:01)
--- NOTE | 2018-09-19 06:25 | NUR ---
Pt. left floor around 0625, taken by VIOLETA Otto by wheelchair.
[2018-09-19 07:00] VITALS: BP 138/101
[2018-09-19] MEDS: IV NORMAL SALINE 1000ML BAG 1,000 ML IV SCH ×2 (09:17→21:10)
[2018-09-19] MEDS: LACTOBACILLUS RHAMNOSUS GG 1 CAPSULE. PO SCH ×2 (09:18→21:11)
[2018-09-19] MEDS: MORPHINE SULFATE 2 MG/ML VIAL. IV PRN ×2 (09:23→15:51)
--- NOTE | 2018-09-19 09:29 | NUR ---
Pt c/o SOA, right flank pain 7/10. Breathing is labored, 26-30 rr, lungs clear throughout. Morphine 1 mg admin'd IVP. Will continue to monitor.
--- NOTE | 2018-09-19 10:21 | PDOC ---
SUBJECTIVE ROS Stable overnight , transferred out of ICU Falling asleep intermittently while talking OBJECTIVE Vital Signs Vital Signs Date Time Temp Pulse Resp B/P (MAP) Pulse Ox O2 Delivery O2 Flow Rate FiO2 09/19/18 09:23 26 Room Air 09/19/18 07:00 98.1 85 138/101 (113) 94 98.1 09/18/18 12:38 6.0 I & 0 Intake and Output 09/19/18 07:00 Intake Total 1220 ml Output Total 1925 ml Balance -705 ml Intake Oral 1170 ml IV Total 50 ml Output Urine Total 1925 ml PHYSICAL EXAM Physical Exam GENERAL: NAD HEENT: OM moist NECK: Supple. LUNGS: Clear to auscultation, nonlabored. HEART: S1 and S2, ABDOMEN: Obese, soft and nontender with bowel sounds present. BACK: Right CVAT. GENITOURINARY: Indwelling Arriaga in place. EXTREMITIES: No gross edema or cyanosis. SKIN: Warm to touch. No signs of rash. NEUROLOGIC: Awake, answering questions appropriately. DIAGNOSIS/ASSESSMENT Assessment & Plan DOLLY - 2/2 Ureter calculi with hydronephrosis, Pyelonephritis s/p Cystoscopy with right ureteral stent placement and right retrograde pyelogram Improved renal function and urine output Metabolic acidosis- Corrected Ureter calculi with hydronephrosis, status post emergent right stent placement on 09/16. Gram-negative edwardo bacteremia with septic shock requiring vasopressor support Pyelonephritis. Leukopenia. Will sign off Severe hepatic steatosis, Elevated LFT's Denies ETOH , Consult GI COMMENT/RELEVANT DATA Meds Current Medications Medications (Trade) Dose Ordered Sig/Saad Start Time Stop Time Status Last Admin Dose Admin Acetaminophen (Tylenol) 650 mg PRN Q6HRS PRN 09/17/18 02:00 09/17/18 02:31 650 MG Albumin Human 500 ml @ 125 mls/hr 1X ONCE 09/17/18 00:45 09/17/18 04:44 UNV Ceftriaxone Sodium (Rocephin) 1 gm 1X ONCE 09/16/18 20:15 09/16/18 20:16 DC 09/16/18 20:25 1 GM Dexamethasone Sodium Phosphate (Decadron) 4 mg STK-MED ONCE 09/16/18 22:58 09/16/18 22:59 DC Ephedrine Sulfate (ePHEDrine PF IN SALINE SYRINGE) 50 mg STK-MED ONCE 09/16/18 23:23 09/16/18 23:24 DC Fentanyl Citrate (Fentanyl 2ml Vial) 50 mcg PRN Q5MIN PRN 09/17/18 01:00 09/17/18 10:40 DC Hydromorphone HCl (Dilaudid) 0.5 mg PRN Q10MIN PRN 09/17/18 01:00 09/17/18 10:40 DC Info (CONTRAST GIVEN -- Rx MONITORING) 1 each PRN DAILY PRN 09/16/18 20:45 09/18/18 20:44 DC Iohexol (Omnipaque 300 Mg/ml) 50 ml STK-MED ONCE 09/16/18 22:23 09/16/18 23:23 DC 09/16/18 23:50 6 ML Iohexol (Omnipaque 350 Mg/ml) 75 ml 1X ONCE 09/16/18 20:45 09/16/18 20:46 DC 09/16/18 21:04 75 ML Ketorolac Tromethamine (Toradol For Or Only) 30 mg STK-MED ONCE 09/16/18 22:58 09/16/18 22:59 DC Lactobacillus Rhamnosus (Culturelle) 1 cap BID 09/17/18 21:00 09/19/18 09:23 1 CAP Lidocaine HCl (Lidocaine Pf 2% Vial) 5 ml STK-MED ONCE 09/16/18 22:58 09/16/18 22:59 DC Lidocaine HCl (Xylocaine-Mpf 1% 2ml Vial) 2 ml PRN 1X PRN 09/17/18 01:00 09/17/18 10:40 DC Meropenem 500 mg/ Sodium Chloride 50 ml @ 100 mls/hr Q6HRS 09/17/18 10:00 09/19/18 05:56 100 MLS/HR Morphine Sulfate (Morphine Sulfate) 2 mg PRN Q2HR PRN 09/17/18 02:00 09/18/18 21:26 2 MG Norepinephrine Bitartrate 250 ml @ 20.757 mls/ hr CONT PRN 09/17/18 02:00 09/18/18 17:41 DC 09/17/18 14:59 26.2 MLS/HR Ondansetron HCl (Zofran) 4 mg PRN Q6HRS PRN 09/17/18 01:00 09/17/18 10:40 DC Phenylephrine HCl (PHENYLEPHRINE in 0.9% NACL PF) 1 mg STK-MED ONCE 09/16/18 23:23 09/16/18 23:24 DC Prochlorperazine Edisylate (Compazine) 5 mg PACU PRN PRN 09/17/18 01:00 09/17/18 10:40 DC Propofol 20 ml @ As Directed STK-MED ONCE 09/16/18 22:58 09/16/18 22:59 DC Ringer's Solution 1,000 ml @ 30 mls/hr Q24H 09/17/18 00:57 09/17/18 10:40 DC Sevoflurane (Ultane) 30 ml STK-MED ONCE 09/16/18 22:57 09/16/18 22:58 DC Sodium Bicarbonate 150 meq/Dextrose 1,150 ml @ 75 mls/hr [id number] 09/17/18 15:00 09/18/18 18:32 DC 09/18/18 10:00 75 MLS/HR Sodium Bicarbonate (Sodium Bicarb Adult 8.4% Syr) 100 meq 1X ONCE 09/17/18 13:30 09/17/18 13:31 DC 09/17/18 12:54 100 MEQ Sodium Chloride 1,000 ml @ 75 mls/hr [id number] 09/18/18 18:30 09/19/18 09:23 75 MLS/HR Vasopressin (Vasostrict) 20 unit STK-MED ONCE 09/16/18 23:48 09/16/18 23:49 DC Results All relevant outside records, renal labs, imaging studies, telemetry/EKG's were reviewed. OVIDIO LOPEZ MD Sep 19, 2018 10:21
[2018-09-19 10:33] LABS: BASO % 0 % (0-3); EOS # 0.1 x10^3/uL (0.0-0.7); EOS % 1 % (0-3); HEMATOCRIT 30.2 % (36.0-47.0); HEMOGLOBIN 10.3 g/dL (12.0-15.5); LYMPH # 2.7 x10^3/uL (1.0-4.8); LYMPH % 17 % (24-48); MEAN CORPUSCULAR HEMOGLOBIN 28 pg (25-35); MEAN CORPUSCULAR HGB CONC 34 g/dL (31-37); MEAN CORPUSCULAR VOLUME 82 fL (79-100); MONO # 0.9 x10^3/uL (0.0-1.1); MONO % 6 % (0-9); NEUT # 11.9 x10^3/uL (1.8-7.7); NEUT % 76 % (31-73); PLATELET COUNT 80 x10^3/uL (140-400); RED BLOOD COUNT 3.66 x10^6/uL (3.50-5.40); RED CELL DISTRIBUTION WIDTH 15.6 % (11.5-14.5); WHITE BLOOD COUNT 15.6 x10^3/uL (4.0-11.0)
[2018-09-19 10:47] LABS: ALBUMIN 2.3 g/dL (3.4-5.0); CREATININE 0.9 mg/dL (0.6-1.0); DIRECT BILIRUBIN 0.8 mg/dL (0.0-0.2); GFR 70.8; POTASSIUM 3.2 mmol/L (3.5-5.1); TOTAL BILIRUBIN 1.2 mg/dL (0.2-1.0); TOTAL PROTEIN 6.4 g/dL (6.4-8.2)
[2018-09-19 11:00] VITALS: BP 125/93
--- NOTE | 2018-09-19 11:32 | PDOC ---
Subjective: Subjective: Right-sided soreness, tolerating PO. Objective: Vital Signs: Vital Signs Date Time Temp Pulse Resp B/P (MAP) Pulse Ox O2 Delivery O2 Flow Rate FiO2 09/19/18 09:23 26 Room Air 09/19/18 07:00 98.1 85 138/101 (113) 94 98.1 09/18/18 12:38 6.0 Labs: Laboratory Tests Test 09/19/18 10:11 White Blood Count 15.6 x10^3/uL Red Blood Count 3.66 x10^6/uL Hemoglobin 10.3 g/dL Hematocrit 30.2 % Mean Corpuscular Volume 82 fL Mean Corpuscular Hemoglobin 28 pg Mean Corpuscular Hemoglobin Concent 34 g/dL Red Cell Distribution Width 15.6 % Platelet Count 80 x10^3/uL Neutrophils (%) (Auto) 76 % Lymphocytes (%) (Auto) 17 % Monocytes (%) (Auto) 6 % Eosinophils (%) (Auto) 1 % Basophils (%) (Auto) 0 % Neutrophils # (Auto) 11.9 x10^3/uL Lymphocytes # (Auto) 2.7 x10^3/uL Monocytes # (Auto) 0.9 x10^3/uL Eosinophils # (Auto) 0.1 x10^3/uL Basophils # (Auto) 0.0 x10^3/uL Sodium Level 138 mmol/L Potassium Level 3.2 mmol/L Chloride Level 102 mmol/L Carbon Dioxide Level 26 mmol/L Anion Gap 10 Blood Urea Nitrogen 29 mg/dL Creatinine 0.9 mg/dL Estimated GFR (Cockcroft-Gault) 70.8 Glucose Level 133 mg/dL Calcium Level 8.0 mg/dL Total Bilirubin 1.2 mg/dL Direct Bilirubin 0.8 mg/dL Aspartate Amino Transf (AST/SGOT) 616 U/L Alanine Aminotransferase (ALT/SGPT) 517 U/L Alkaline Phosphatase 313 U/L Total Protein 6.4 g/dL Albumin 2.3 g/dL PE: GEN: NAD LUNGS: CTAB HEART: RRR ABD: soft NEURO/PSYCH: A & O �3 A/P: Sepsis/pyelonephritis, s/p ureteral stent Abnormal LFTs - transaminases worse today Hepatic steatosis -- Check US, monitor LFTs. MARTÍNEZ KILGORE Sep 19, 2018 11:32
--- NOTE | 2018-09-19 12:15 | PDOC ---
PROGRESS NOTE SUBJECTIVE: ROS: ROS: RESPIRATORY: Shortness of breath denies. Cough denies. UROLOGY: Denies blood in urine. Denies difficulty urinating HPI: Duration: [] Quality: [] Severity: [] Site/Location: [] OBJECTIVE: Vital Signs: Vital Signs Date Time Temp Pulse Resp B/P (MAP) Pulse Ox O2 Delivery O2 Flow Rate FiO2 09/19/18 09:23 26 Room Air 09/19/18 08:00 Room Air 09/19/18 07:00 98.1 85 19 138/101 (113) 94 Room Air 98.1 09/19/18 03:44 18 Room Air 09/19/18 03:00 98.0 56 18 142/83 (102) 97 Room Air 98.0 09/18/18 23:00 97.5 85 16 110/69 (83) 97 Room Air 97.5 09/18/18 21:26 18 Room Air 09/18/18 20:00 Room Air 09/18/18 19:00 97.7 87 16 121/79 (93) 96 Room Air 97.7 09/18/18 15:00 97.6 80 18 107/71 (83) 95 97.6 09/18/18 13:42 16 96 Room Air 09/18/18 12:38 16 96 Room Air 6.0 I & O Intake and Output 09/19/18 06:59 Intake Total 1220 ml Output Total 2025 ml Balance -805 ml Intake Oral 1170 ml IV Total 50 ml Output Urine Total 2025 ml PHYSICAL EXAM: Physical Exam: General: Pleasant, no acute distress, well groomed Eyes: conjunctiva anicteric, eyes full range of motion ENT: moist oral mucosa, normal dentition Neck: Trachea midline, no masses Respiratory: unlabored breathing, not using accessory muscles, no crackles or wheezes Cardiovascular: Regular rate and rhythm, no peripheral edema Abdomen: nontender, nondistended, no hepatosplenomegaly, no masses Skin: no rashes or skin lesions on visualized skin Psych: normal mood, affect. Alert and oriented x 3. LABS: Laboratory Tests Test 09/16/18 19:38 09/16/18 19:50 09/16/18 20:03 09/16/18 20:10 Urine Collection Type Unknown Urine Color Yellow Urine Clarity Cloudy Urine pH 5.5 Urine Specific [place] 1.020 Urine Protein 100 mg/dL (NEG-TRACE) Urine Glucose (UA) 100 mg/dL (NEG) Urine Ketones (Stick) Negative mg/dL (NEG) Urine Blood Large (NEG) Urine Nitrite Negative (NEG) Urine Bilirubin Negative (NEG) Urine Urobilinogen Dipstick 1.0 mg/dL (0.2 mg/dL) Urine Leukocyte Esterase Moderate (NEG) Urine RBC 0 /HPF (0-2) Urine WBC >40 /HPF (0-4) Urine Squamous Epithelial Cells Mod /LPF Urine Bacteria Moderate /HPF (0-FEW) Urine Mucus Slight /LPF Urine Opiates Screen Neg (NEG) Urine Methadone Screen Neg (NEG) Urine Barbiturates Neg (NEG) Urine Phencyclidine Screen Neg (NEG) Urine Amphetamine/Methamphetamine Neg (NEG) Urine Benzodiazepines Screen Neg (NEG) Urine Cocaine Screen Neg (NEG) Urine Cannabinoids Screen Neg (NEG) Urine Ethyl Alcohol Neg (NEG) Bedside Urine HCG, Qualitative Hcg negative (Negative) White Blood Count 2.2 x10^3/uL (4.0-11.0) Red Blood Count 4.52 x10^6/uL (3.50-5.40) Hemoglobin 12.8 g/dL (12.0-15.5) Hematocrit 38.5 % (36.0-47.0) Mean Corpuscular Volume 85 fL (79-100) Mean Corpuscular Hemoglobin 28 pg (25-35) Mean Corpuscular Hemoglobin Concent 33 g/dL (31-37) Red Cell Distribution Width 15.3 % (11.5-14.5) Platelet Count 101 x10^3/uL (140-400) Neutrophils (%) (Auto) 63 % (31-73) Lymphocytes (%) (Auto) 32 % (24-48) Monocytes (%) (Auto) 2 % (0-9) Eosinophils (%) (Auto) 3 % (0-3) Basophils (%) (Auto) 0 % (0-3) Neutrophils # (Auto) 1.4 x10^3/uL (1.8-7.7) Lymphocytes # (Auto) 0.7 x10^3/uL (1.0-4.8) Monocytes # (Auto) 0.0 x10^3/uL (0.0-1.1) Eosinophils # (Auto) 0.1 x10^3/uL (0.0-0.7) Basophils # (Auto) 0.0 x10^3/uL (0.0-0.2) Prothrombin Time 16.6 SEC (11.7-14.0) Prothromb Time International Ratio 1.4 (0.8-1.1) Sodium Level 137 mmol/L (136-145) Potassium Level 3.4 mmol/L (3.5-5.1) Chloride Level 102 mmol/L (98-107) Carbon Dioxide Level 18 mmol/L (21-32) Anion Gap 17 (6-14) 20 mmol/L (6-14) Blood Urea Nitrogen 25 mg/dL (7-20) Creatinine 1.7 mg/dL (0.6-1.0) Estimated GFR (Cockcroft-Gault) 34.0 BUN/Creatinine Ratio 15 (6-20) Glucose Level 171 mg/dL (70-99) 168 mg/dL (70-99) Lactic Acid Level 4.4 mmol/L (0.4-2.0) Calcium Level 8.2 mg/dL (8.5-10.1) Total Bilirubin 0.8 mg/dL (0.2-1.0) Aspartate Amino Transf (AST/SGOT) 51 U/L (15-37) Alanine Aminotransferase (ALT/SGPT) 88 U/L (14-59) Alkaline Phosphatase 230 U/L (46-116) Troponin I Quantitative < 0.017 ng/mL (0.000-0.055) Total Protein 6.9 g/dL (6.4-8.2) Albumin 2.8 g/dL (3.4-5.0) Albumin/Globulin Ratio 0.7 (1.0-1.7) Lipase 76 U/L (73-393) Procalcitonin 43.40 ng/mL (0.00-0.10) Bedside Hemoglobin 13.6 g/dL (12-15) Bedside Hematocrit 40 % (36-40) Bedside Sodium 136 mmol/L (135-145) Bedside Potassium 3.3 mmol/L (3.5-5.0) Bedside Chloride 104 mmol/L (98-110) Bedside Total CO2 16 mmol/L (23-32) Bedside Blood Urea Nitrogen 24 mg/dL (8-26) Bedside Creatinine 1.5 mg/dL (0.5-1.4) Bedside Ionized Calcium (Chris) 1.13 mmol/L (1.13-1.32) Test 09/16/18 23:10 09/16/18 23:30 09/17/18 10:25 09/17/18 12:25 Lactic Acid Level 3.7 mmol/L (0.4-2.0) Nasal Screen MRSA (PCR) Negative (Negative) Sodium Level 135 mmol/L (136-145) Potassium Level 4.2 mmol/L (3.5-5.1) Chloride Level 101 mmol/L (98-107) Carbon Dioxide Level 9 mmol/L (21-32) Anion Gap 25 (6-14) Blood Urea Nitrogen 30 mg/dL (7-20) Creatinine 2.2 mg/dL (0.6-1.0) Estimated GFR (Cockcroft-Gault) 25.3 Glucose Level 178 mg/dL (70-99) Calcium Level 7.3 mg/dL (8.5-10.1) O2 Saturation 95 % (92-99) Arterial Blood pH 7.17 (7.35-7.45) Arterial Blood pCO2 at Patient Temp 21 mmHg (35-46) Arterial Blood pO2 at Patient Temp 91 mmHg (85-108) Arterial Blood HCO3 8 mmol/L (21-28) Arterial Blood Base Excess -19 mmol/L (-3-3) FiO2 21 Test 09/17/18 15:55 09/18/18 04:10 09/19/18 10:11 Sodium Level 137 mmol/L (136-145) 139 mmol/L (136-145) 138 mmol/L (136-145) Potassium Level 4.0 mmol/L (3.5-5.1) 3.8 mmol/L (3.5-5.1) 3.2 mmol/L (3.5-5.1) Chloride Level 104 mmol/L (98-107) 103 mmol/L (98-107) 102 mmol/L (98-107) Carbon Dioxide Level 12 mmol/L (21-32) 22 mmol/L (21-32) 26 mmol/L (21-32) Anion Gap 21 (6-14) 14 (6-14) 10 (6-14) Blood Urea Nitrogen 31 mg/dL (7-20) 34 mg/dL (7-20) 29 mg/dL (7-20) Creatinine 2.0 mg/dL (0.6-1.0) 1.5 mg/dL (0.6-1.0) 0.9 mg/dL (0.6-1.0) Estimated GFR (Cockcroft-Gault) 28.2 39.3 70.8 Glucose Level 238 mg/dL (70-99) 175 mg/dL (70-99) 133 mg/dL (70-99) Calcium Level 7.2 mg/dL (8.5-10.1) 7.4 mg/dL (8.5-10.1) 8.0 mg/dL (8.5-10.1) White Blood Count 19.7 x10^3/uL (4.0-11.0) 15.6 x10^3/uL (4.0-11.0) Red Blood Count 3.46 x10^6/uL (3.50-5.40) 3.66 x10^6/uL (3.50-5.40) Hemoglobin 9.7 g/dL (12.0-15.5) 10.3 g/dL (12.0-15.5) Hematocrit 29.3 % (36.0-47.0) 30.2 % (36.0-47.0) Mean Corpuscular Volume 85 fL (79-100) 82 fL (79-100) Mean Corpuscular Hemoglobin 28 pg (25-35) 28 pg (25-35) Mean Corpuscular Hemoglobin Concent 33 g/dL (31-37) 34 g/dL (31-37) Red Cell Distribution Width 15.9 % (11.5-14.5) 15.6 % (11.5-14.5) Platelet Count 60 x10^3/uL (140-400) 80 x10^3/uL (140-400) Neutrophils (%) (Auto) 83 % (31-73) 76 % (31-73) Lymphocytes (%) (Auto) 9 % (24-48) 17 % (24-48) Monocytes (%) (Auto) 4 % (0-9) 6 % (0-9) Eosinophils (%) (Auto) 4 % (0-3) 1 % (0-3) Basophils (%) (Auto) 0 % (0-3) 0 % (0-3) Neutrophils # (Auto) 16.4 x10^3/uL (1.8-7.7) 11.9 x10^3/uL (1.8-7.7) Lymphocytes # (Auto) 1.7 x10^3/uL (1.0-4.8) 2.7 x10^3/uL (1.0-4.8) Monocytes # (Auto) 0.8 x10^3/uL (0.0-1.1) 0.9 x10^3/uL (0.0-1.1) Eosinophils # (Auto) 0.8 x10^3/uL (0.0-0.7) 0.1 x10^3/uL (0.0-0.7) Basophils # (Auto) 0.0 x10^3/uL (0.0-0.2) 0.0 x10^3/uL (0.0-0.2) BUN/Creatinine Ratio 23 (6-20) Total Bilirubin 1.3 mg/dL (0.2-1.0) 1.2 mg/dL (0.2-1.0) Aspartate Amino Transf (AST/SGOT) 227 U/L (15-37) 616 U/L (15-37) Alanine Aminotransferase (ALT/SGPT) 198 U/L (14-59) 517 U/L (14-59) Alkaline Phosphatase 160 U/L (46-116) 313 U/L (46-116) Total Protein 6.0 g/dL (6.4-8.2) 6.4 g/dL (6.4-8.2) Albumin 2.4 g/dL (3.4-5.0) 2.3 g/dL (3.4-5.0) Albumin/Globulin Ratio 0.7 (1.0-1.7) Direct Bilirubin 0.8 mg/dL (0.0-0.2) Microbiology 09/16/18 Blood Culture - Preliminary, Resulted NO GROWTH AFTER 2 DAYS MEDICATIONS: Current Medications Medications (Trade) Dose Ordered Sig/Saad Start Time Stop Time Status Last Admin Dose Admin Acetaminophen (Tylenol) 650 mg PRN Q6HRS PRN 09/17/18 02:00 09/17/18 02:31 650 MG Albumin Human 500 ml @ 125 mls/hr 1X ONCE 09/17/18 00:45 09/17/18 04:44 UNV Ceftriaxone Sodium (Rocephin) 1 gm 1X ONCE 09/16/18 20:15 09/16/18 20:16 DC 09/16/18 20:25 1 GM Dexamethasone Sodium Phosphate (Decadron) 4 mg STK-MED ONCE 09/16/18 22:58 09/16/18 22:59 DC Ephedrine Sulfate (ePHEDrine PF IN SALINE SYRINGE) 50 mg STK-MED ONCE 09/16/18 23:23 09/16/18 23:24 DC Fentanyl Citrate (Fentanyl 2ml Vial) 50 mcg PRN Q5MIN PRN 09/17/18 01:00 09/17/18 10:40 DC Hydromorphone HCl (Dilaudid) 0.5 mg PRN Q10MIN PRN 09/17/18 01:00 09/17/18 10:40 DC Info (CONTRAST GIVEN -- Rx MONITORING) 1 each PRN DAILY PRN 09/16/18 20:45 09/18/18 20:44 DC Iohexol (Omnipaque 300 Mg/ml) 50 ml STK-MED ONCE 09/16/18 22:23 09/16/18 23:23 DC 09/16/18 23:50 6 ML Iohexol (Omnipaque 350 Mg/ml) 75 ml 1X ONCE 09/16/18 20:45 09/16/18 20:46 DC 09/16/18 21:04 75 ML Ketorolac Tromethamine (Toradol For Or Only) 30 mg STK-MED ONCE 09/16/18 22:58 09/16/18 22:59 DC Lactobacillus Rhamnosus (Culturelle) 1 cap BID 09/17/18 21:00 09/19/18 09:23 1 CAP Lidocaine HCl (Lidocaine Pf 2% Vial) 5 ml STK-MED ONCE 09/16/18 22:58 09/16/18 22:59 DC Lidocaine HCl (Xylocaine-Mpf 1% 2ml Vial) 2 ml PRN 1X PRN 09/17/18 01:00 09/17/18 10:40 DC Meropenem 500 mg/ Sodium Chloride 50 ml @ 100 mls/hr Q6HRS 09/17/18 10:00 09/19/18 05:56 100 MLS/HR Morphine Sulfate (Morphine Sulfate) 2 mg PRN Q2HR PRN 09/17/18 02:00 09/18/18 21:26 2 MG Norepinephrine Bitartrate 250 ml @ 20.757 mls/ hr CONT PRN 09/17/18 02:00 09/18/18 17:41 DC 09/17/18 14:59 26.2 MLS/HR Ondansetron HCl (Zofran) 4 mg PRN Q6HRS PRN 09/17/18 01:00 09/17/18 10:40 DC Phenylephrine HCl (PHENYLEPHRINE in 0.9% NACL PF) 1 mg STK-MED ONCE 09/16/18 23:23 09/16/18 23:24 DC Prochlorperazine Edisylate (Compazine) 5 mg PACU PRN PRN 09/17/18 01:00 09/17/18 10:40 DC Propofol 20 ml @ As Directed STK-MED ONCE 09/16/18 22:58 09/16/18 22:59 DC Ringer's Solution 1,000 ml @ 30 mls/hr Q24H 09/17/18 00:57 09/17/18 10:40 DC Sevoflurane (Ultane) 30 ml STK-MED ONCE 09/16/18 22:57 09/16/18 22:58 DC Sodium Bicarbonate 150 meq/Dextrose 1,150 ml @ 75 mls/hr [id number] 09/17/18 15:00 09/18/18 18:32 DC 09/18/18 10:00 75 MLS/HR Sodium Bicarbonate (Sodium Bicarb Adult 8.4% Syr) 100 meq 1X ONCE 09/17/18 13:30 09/17/18 13:31 DC 09/17/18 12:54 100 MEQ Sodium Chloride 1,000 ml @ 75 mls/hr [id number] 09/18/18 18:30 09/19/18 09:23 75 MLS/HR Vasopressin (Vasostrict) 20 unit STK-MED ONCE 09/16/18 23:48 09/16/18 23:49 DC ASSESSMENT & PLAN Pt doing well. Rec that she call office for f/u w Dr Ryan in 2 wks for management of her stone. THOMPSON SHI MD Sep 19, 2018 12:15
--- NOTE | 2018-09-19 13:29 | PDOC ---
PROGRESS NOTES Chief Complaint Chief Complaint Post-op cystoscopy Right Ureterolithiasis Right Hydronephrosis Sepsis - gram negative bacteremia Gestational diabetes Tubal ligation Transaminitis DOLLY - vasomotor nephropathy present on admission Thrombocytopenia History of Present Illness History of Present Illness Pt seen and examined in ICU Having pain immediately relieved by morphine. LFTs up more today. NPO for RUQ US Pt is eating and talkative DW RN Reviewed pt's chart Vitals Vitals Vital Signs Date Time Temp Pulse Resp B/P (MAP) Pulse Ox O2 Delivery O2 Flow Rate FiO2 09/19/18 11:00 98.5 81 18 125/93 (104) 96 Room Air 98.5 09/18/18 12:38 6.0 Physical Exam General: Alert, Cooperative, No acute distress Heart: Regular rate, Normal S1, Normal S2 Lungs: Clear Abdomen: Normal bowel sounds, Soft Extremities: No clubbing, No cyanosis Skin: No rashes, No breakdown Labs LABS Laboratory Tests Test 09/19/18 10:11 White Blood Count 15.6 x10^3/uL (4.0-11.0) Red Blood Count 3.66 x10^6/uL (3.50-5.40) Hemoglobin 10.3 g/dL (12.0-15.5) Hematocrit 30.2 % (36.0-47.0) Mean Corpuscular Volume 82 fL (79-100) Mean Corpuscular Hemoglobin 28 pg (25-35) Mean Corpuscular Hemoglobin Concent 34 g/dL (31-37) Red Cell Distribution Width 15.6 % (11.5-14.5) Platelet Count 80 x10^3/uL (140-400) Neutrophils (%) (Auto) 76 % (31-73) Lymphocytes (%) (Auto) 17 % (24-48) Monocytes (%) (Auto) 6 % (0-9) Eosinophils (%) (Auto) 1 % (0-3) Basophils (%) (Auto) 0 % (0-3) Neutrophils # (Auto) 11.9 x10^3/uL (1.8-7.7) Lymphocytes # (Auto) 2.7 x10^3/uL (1.0-4.8) Monocytes # (Auto) 0.9 x10^3/uL (0.0-1.1) Eosinophils # (Auto) 0.1 x10^3/uL (0.0-0.7) Basophils # (Auto) 0.0 x10^3/uL (0.0-0.2) Sodium Level 138 mmol/L (136-145) Potassium Level 3.2 mmol/L (3.5-5.1) Chloride Level 102 mmol/L (98-107) Carbon Dioxide Level 26 mmol/L (21-32) Anion Gap 10 (6-14) Blood Urea Nitrogen 29 mg/dL (7-20) Creatinine 0.9 mg/dL (0.6-1.0) Estimated GFR (Cockcroft-Gault) 70.8 Glucose Level 133 mg/dL (70-99) Calcium Level 8.0 mg/dL (8.5-10.1) Total Bilirubin 1.2 mg/dL (0.2-1.0) Direct Bilirubin 0.8 mg/dL (0.0-0.2) Aspartate Amino Transf (AST/SGOT) 616 U/L (15-37) Alanine Aminotransferase (ALT/SGPT) 517 U/L (14-59) Alkaline Phosphatase 313 U/L (46-116) Total Protein 6.4 g/dL (6.4-8.2) Albumin 2.3 g/dL (3.4-5.0) Comment Review of Relevant I have reviewed the following items chidi (where applicable) has been applied. Labs Laboratory Tests Test 09/17/18 15:55 09/18/18 04:10 09/19/18 10:11 Sodium Level 137 mmol/L (136-145) 139 mmol/L (136-145) 138 mmol/L (136-145) Potassium Level 4.0 mmol/L (3.5-5.1) 3.8 mmol/L (3.5-5.1) 3.2 mmol/L (3.5-5.1) Chloride Level 104 mmol/L (98-107) 103 mmol/L (98-107) 102 mmol/L (98-107) Carbon Dioxide Level 12 mmol/L (21-32) 22 mmol/L (21-32) 26 mmol/L (21-32) Anion Gap 21 (6-14) 14 (6-14) 10 (6-14) Blood Urea Nitrogen 31 mg/dL (7-20) 34 mg/dL (7-20) 29 mg/dL (7-20) Creatinine 2.0 mg/dL (0.6-1.0) 1.5 mg/dL (0.6-1.0) 0.9 mg/dL (0.6-1.0) Estimated GFR (Cockcroft-Gault) 28.2 39.3 70.8 Glucose Level 238 mg/dL (70-99) 175 mg/dL (70-99) 133 mg/dL (70-99) Calcium Level 7.2 mg/dL (8.5-10.1) 7.4 mg/dL (8.5-10.1) 8.0 mg/dL (8.5-10.1) White Blood Count 19.7 x10^3/uL (4.0-11.0) 15.6 x10^3/uL (4.0-11.0) Red Blood Count 3.46 x10^6/uL (3.50-5.40) 3.66 x10^6/uL (3.50-5.40) Hemoglobin 9.7 g/dL (12.0-15.5) 10.3 g/dL (12.0-15.5) Hematocrit 29.3 % (36.0-47.0) 30.2 % (36.0-47.0) Mean Corpuscular Volume 85 fL (79-100) 82 fL (79-100) Mean Corpuscular Hemoglobin 28 pg (25-35) 28 pg (25-35) Mean Corpuscular Hemoglobin Concent 33 g/dL (31-37) 34 g/dL (31-37) Red Cell Distribution Width 15.9 % (11.5-14.5) 15.6 % (11.5-14.5) Platelet Count 60 x10^3/uL (140-400) 80 x10^3/uL (140-400) Neutrophils (%) (Auto) 83 % (31-73) 76 % (31-73) Lymphocytes (%) (Auto) 9 % (24-48) 17 % (24-48) Monocytes (%) (Auto) 4 % (0-9) 6 % (0-9) Eosinophils (%) (Auto) 4 % (0-3) 1 % (0-3) Basophils (%) (Auto) 0 % (0-3) 0 % (0-3) Neutrophils # (Auto) 16.4 x10^3/uL (1.8-7.7) 11.9 x10^3/uL (1.8-7.7) Lymphocytes # (Auto) 1.7 x10^3/uL (1.0-4.8) 2.7 x10^3/uL (1.0-4.8) Monocytes # (Auto) 0.8 x10^3/uL (0.0-1.1) 0.9 x10^3/uL (0.0-1.1) Eosinophils # (Auto) 0.8 x10^3/uL (0.0-0.7) 0.1 x10^3/uL (0.0-0.7) Basophils # (Auto) 0.0 x10^3/uL (0.0-0.2) 0.0 x10^3/uL (0.0-0.2) BUN/Creatinine Ratio 23 (6-20) Total Bilirubin 1.3 mg/dL (0.2-1.0) 1.2 mg/dL (0.2-1.0) Aspartate Amino Transf (AST/SGOT) 227 U/L (15-37) 616 U/L (15-37) Alanine Aminotransferase (ALT/SGPT) 198 U/L (14-59) 517 U/L (14-59) Alkaline Phosphatase 160 U/L (46-116) 313 U/L (46-116) Total Protein 6.0 g/dL (6.4-8.2) 6.4 g/dL (6.4-8.2) Albumin 2.4 g/dL (3.4-5.0) 2.3 g/dL (3.4-5.0) Albumin/Globulin Ratio 0.7 (1.0-1.7) Direct Bilirubin 0.8 mg/dL (0.0-0.2) Laboratory Tests Test 09/19/18 10:11 White Blood Count 15.6 x10^3/uL (4.0-11.0) Red Blood Count 3.66 x10^6/uL (3.50-5.40) Hemoglobin 10.3 g/dL (12.0-15.5) Hematocrit 30.2 % (36.0-47.0) Mean Corpuscular Volume 82 fL (79-100) Mean Corpuscular Hemoglobin 28 pg (25-35) Mean Corpuscular Hemoglobin Concent 34 g/dL (31-37) Red Cell Distribution Width 15.6 % (11.5-14.5) Platelet Count 80 x10^3/uL (140-400) Neutrophils (%) (Auto) 76 % (31-73) Lymphocytes (%) (Auto) 17 % (24-48) Monocytes (%) (Auto) 6 % (0-9) Eosinophils (%) (Auto) 1 % (0-3) Basophils (%) (Auto) 0 % (0-3) Neutrophils # (Auto) 11.9 x10^3/uL (1.8-7.7) Lymphocytes # (Auto) 2.7 x10^3/uL (1.0-4.8) Monocytes # (Auto) 0.9 x10^3/uL (0.0-1.1) Eosinophils # (Auto) 0.1 x10^3/uL (0.0-0.7) Basophils # (Auto) 0.0 x10^3/uL (0.0-0.2) Sodium Level 138 mmol/L (136-145) Potassium Level 3.2 mmol/L (3.5-5.1) Chloride Level 102 mmol/L (98-107) Carbon Dioxide Level 26 mmol/L (21-32) Anion Gap 10 (6-14) Blood Urea Nitrogen 29 mg/dL (7-20) Creatinine 0.9 mg/dL (0.6-1.0) Estimated GFR (Cockcroft-Gault) 70.8 Glucose Level 133 mg/dL (70-99) Calcium Level 8.0 mg/dL (8.5-10.1) Total Bilirubin 1.2 mg/dL (0.2-1.0) Direct Bilirubin 0.8 mg/dL (0.0-0.2) Aspartate Amino Transf (AST/SGOT) 616 U/L (15-37) Alanine Aminotransferase (ALT/SGPT) 517 U/L (14-59) Alkaline Phosphatase 313 U/L (46-116) Total Protein 6.4 g/dL (6.4-8.2) Albumin 2.3 g/dL (3.4-5.0) Microbiology 09/16/18 Blood Culture - Preliminary, Resulted NO GROWTH AFTER 2 DAYS Medications Current Medications Sodium Chloride 1,000 ml @ 1,000 mls/hr 1X ONCE IV Last administered on 09/16/18at 20:20; Start 09/16/18 at 20:15; Stop 09/16/18 at 21:14; Status DC Sodium Chloride 1,000 ml @ 1,000 mls/hr 1X ONCE IV Last administered on 09/16/18at 20:20; Start 09/16/18 at 20:15; Stop 09/16/18 at 21:14; Status DC Acetaminophen (Tylenol) 1,000 mg 1X ONCE PO Last administered on 09/16/18 20:25; Start 09/16/18 at 20:15; Stop 09/16/18 at 20:16; Status DC Fentanyl Citrate (Fentanyl 2ml Vial) 50 mcg 1X ONCE IV Last administered on 09/16/18 20:25; Start 09/16/18 at 20:15; Stop 09/16/18 at 20:16; Status DC Ceftriaxone Sodium (Rocephin) 1 gm 1X ONCE IVP Last administered on 09/16/18 20:25; Start 09/16/18 at 20:15; Stop 09/16/18 at 20:16; Status DC Sodium Chloride 1,000 ml @ 1,560 mls/hr Q39M IV Last administered on 09/16/18at 21:39; Start 09/16/18 at 20:45; Stop 09/16/18 at 21:45; Status DC Iohexol (Omnipaque 350 Mg/ml) 75 ml 1X ONCE IV Last administered on 09/16/18 21:04; Start 09/16/18 at 20:45; Stop 09/16/18 at 20:46; Status DC Info (CONTRAST GIVEN -- Rx MONITORING) 1 each PRN DAILY PRN MC SEE COMMENTS; Start 09/16/18 at 20:45; Stop 09/18/18 at 20:44; Status DC Fentanyl Citrate (Fentanyl 2ml Vial) 50 mcg 1X ONCE IV Last administered on 09/16/18at 21:27; Start 09/16/18 at 21:30; Stop 09/16/18 at 21:31; Status DC Sodium Chloride 1,000 ml @ 150 mls/hr Q6H40M IV Last administered on 09/17/18at 04:52; Start 09/16/18 at 22:00; Stop 09/17/18 at 15:00; Status DC Sevoflurane (Ultane) 30 ml STK-MED ONCE IH ; Start 09/16/18 at 22:57; Stop 09/16/18 at 22:58; Status DC Propofol 20 ml @ As Directed STK-MED ONCE IV ; Start 09/16/18 at 22:58; Stop 09/16/18 at 22:59; Status DC Lidocaine HCl (Lidocaine Pf 2% Vial) 5 ml STK-MED ONCE .ROUTE ; Start 09/16/18 at 22:58; Stop 09/16/18 at 22:59; Status DC Dexamethasone Sodium Phosphate (Decadron) 4 mg STK-MED ONCE .ROUTE ; Start 09/16/18 at 22:58; Stop 09/16/18 at 22:59; Status DC Ketorolac Tromethamine (Toradol For Or Only) 30 mg STK-MED ONCE INJ ; Start 09/16/18 at 22:58; Stop 09/16/18 at 22:59; Status DC Ondansetron HCl (Zofran) 4 mg STK-MED ONCE .ROUTE ; Start 09/16/18 at 22:58; Stop 09/16/18 at 22:59; Status DC Ephedrine Sulfate (ePHEDrine PF IN SALINE SYRINGE) 50 mg STK-MED ONCE IV ; Start 09/16/18 at 23:23; Stop 09/16/18 at 23:24; Status DC Phenylephrine HCl (PHENYLEPHRINE in 0.9% NACL PF) 1 mg STK-MED ONCE IV ; Start 09/16/18 at 23:23; Stop 09/16/18 at 23:24; Status DC Iohexol (Omnipaque 300 Mg/ml) 50 ml STK-MED ONCE .ROUTE Last administered on 09/16/18at 23:50; Start 09/16/18 at 22:23; Stop 09/16/18 at 23:23; Status DC Albumin Human 500 ml @ As Directed STK-MED ONCE IV ; Start 09/16/18 at 23:43; Stop 09/16/18 at 23:44; Status DC Vasopressin (Vasostrict) 20 unit STK-MED ONCE .ROUTE ; Start 09/16/18 at 23:48; Stop 09/16/18 at 23:49; Status DC Albumin Human 500 ml @ 500 mls/hr 1X ONCE IV Last administered on 09/17/18at 01:00; Start 09/17/18 at 01:00; Stop 09/17/18 at 01:59; Status DC Albumin Human 500 ml @ 125 mls/hr 1X ONCE IV ; Start 09/17/18 at 00:45; Stop 09/17/18 at 04:44; Status UNV Ondansetron HCl (Zofran) 4 mg PRN Q6HRS PRN IV NAUSEA/VOMITING; Start 09/17/18 at 01:00; Stop 09/17/18 at 10:40; Status DC Fentanyl Citrate (Fentanyl 2ml Vial) 25 mcg PRN Q5MIN PRN IV MILD PAIN 1-3; Start 09/17/18 at 01:00; Stop 09/17/18 at 10:40; Status DC Fentanyl Citrate (Fentanyl 2ml Vial) 50 mcg PRN Q5MIN PRN IV MODERATE TO SEVERE PAIN; Start 09/17/18 at 01:00; Stop 09/17/18 at 10:40; Status DC Morphine Sulfate (Morphine Sulfate) 1 mg PRN Q10MIN PRN IV SEVERE PAIN 7-10; Start 09/17/18 at 01:00; Stop 09/17/18 at 10:40; Status DC Ringer's Solution 1,000 ml @ 30 mls/hr Q24H IV ; Start 09/17/18 at 00:57; Stop 09/17/18 at 10:40; Status DC Lidocaine HCl (Xylocaine-Mpf 1% 2ml Vial) 2 ml PRN 1X PRN ID PRIOR TO IV START; Start 09/17/18 at 01:00; Stop 09/17/18 at 10:40; Status DC Hydromorphone HCl (Dilaudid) 0.5 mg PRN Q10MIN PRN IV SEV PAIN, Second choice; Start 09/17/18 at 01:00; Stop 09/17/18 at 10:40; Status DC Prochlorperazine Edisylate (Compazine) 5 mg PACU PRN PRN IV NAUSEA, MRX1; Start 09/17/18 at 01:00; Stop 09/17/18 at 10:40; Status DC Norepinephrine Bitartrate 250 ml @ 20.757 mls/ hr CONT PRN IV SEE I/O RECORD Last administered on 09/17/18 14:59; Start 09/17/18 at 02:00; Stop 09/18/18 at 17:41; Status DC Acetaminophen (Tylenol) 650 mg PRN Q6HRS PRN PO MIGRAINE HEADACHE Last administered on 09/17/18 02:31; Start 09/17/18 at 02:00 Morphine Sulfate (Morphine Sulfate) 1 mg PRN Q2HR PRN IV MODERATE PAIN 4-6 Last administered on 09/19/18 09:23; Start 09/17/18 at 02:00 Morphine Sulfate (Morphine Sulfate) 2 mg PRN Q2HR PRN IV SEVERE PAIN 7-10 Last administered on 09/18/18 21:26; Start 09/17/18 at 02:00 Meropenem 500 mg/ Sodium Chloride 50 ml @ 100 mls/hr Q6HRS IV Last administered on 09/19/18 05:56; Start 09/17/18 at 10:00 Sodium Bicarbonate (Sodium Bicarb Adult 8.4% Syr) 100 meq 1X ONCE IV Last administered on 09/17/18 12:54; Start 09/17/18 at 13:30; Stop 09/17/18 at 13:31; Status DC Lactobacillus Rhamnosus (Culturelle) 1 cap BID PO Last administered on 09/19/18 09:23; Start 09/17/18 at 21:00 Sodium Bicarbonate 150 meq/Dextrose 1,150 ml @ 150 mls/hr CONT IV ; Start 09/17/18 at 14:00; Status UNV Sodium Bicarbonate 150 meq/Dextrose 1,150 ml @ 75 mls/hr [id number] IV Last administered on 09/18/18 10:00; Start 09/17/18 at 15:00; Stop 09/18/18 at 18:32; Status DC Sodium Chloride 1,000 ml @ 75 mls/hr [id number] IV Last administered on 09/19/18 09:23; Start 09/18/18 at 18:30 Active Scripts Active Levaquin (Levofloxacin) 500 Mg Tablet 500 Mg PO DAILY Reported Tramadol Hcl 50 Mg Tablet 1 Tab PO PRN Q6HRS Vitals/I & O Vital Sign - Last 24 Hours 09/18/18 09/18/18 09/18/18 09/18/18 13:42 15:00 19:00 20:00 Temp 97.6 97.7 97.6 97.7 Pulse 80 87 Resp 16 18 16 B/P (MAP) 107/71 (83) 121/79 (93) Pulse Ox 96 95 96 O2 Delivery Room Air Room Air Room Air 09/18/18 09/18/18 09/19/18 09/19/18 21:26 23:00 03:00 03:44 Temp 97.5 98.0 97.5 98.0 Pulse 85 56 Resp 18 16 18 18 B/P (MAP) 110/69 (83) 142/83 (102) Pulse Ox 97 97 O2 Delivery Room Air Room Air Room Air Room Air 09/19/18 09/19/18 09/19/18 09/19/18 07:00 08:00 09:23 11:00 Temp 98.1 98.5 98.1 98.5 Pulse 85 81 Resp 19 26 18 B/P (MAP) 138/101 (113) 125/93 (104) Pulse Ox 94 96 O2 Delivery Room Air Room Air Room Air Room Air Intake and Output 09/18/18 09/18/18 09/19/18 14:59 22:59 06:59 Intake Total 350 ml 600 ml 270 ml Output Total 375 ml 1100 ml 550 ml Balance -25 ml -500 ml -280 ml CURTIS DUNBAR MD Sep 19, 2018 13:29
[2018-09-19 14:32] LABS: PHOSPHORUS 2.8 mg/dL (2.6-4.7)
[2018-09-19 15:00] VITALS: BP 136/96
--- NOTE | 2018-09-19 15:27 | PDOC ---
Infectious Disease Note Subjective Subjective Feeling better Less back pain No fevers last 24 hours. UO improving Denies chills/N/V/D Mild SOA ROS ROS o/w neg Vital Sign Vital Signs Vital Signs Date Time Temp Pulse Resp B/P (MAP) Pulse Ox O2 Delivery O2 Flow Rate FiO2 09/19/18 13:45 16 Room Air 09/19/18 11:00 98.5 81 125/93 (104) 96 98.5 09/18/18 12:38 6.0 Physical Exam PHYSICAL EXAM GENERAL: Propped up in bed, alert, looks better HEENT: Pupils equally round. Oral cavity pink. NECK: Supple. LUNGS: Crackles at the base HEART: S1 and S2, regular ABDOMEN: Obese, soft and nontender with bowel sounds present. BACK: mild right CVAT. GENITOURINARY: Indwelling Arriaga in place. EXTREMITIES: No gross edema or cyanosis. SKIN: Warm to touch. No signs of rash. NEUROLOGIC: Alert, answering questions appropriately. PIV Labs Lab Laboratory Tests Test 09/19/18 10:11 White Blood Count 15.6 x10^3/uL (4.0-11.0) Red Blood Count 3.66 x10^6/uL (3.50-5.40) Hemoglobin 10.3 g/dL (12.0-15.5) Hematocrit 30.2 % (36.0-47.0) Mean Corpuscular Volume 82 fL (79-100) Mean Corpuscular Hemoglobin 28 pg (25-35) Mean Corpuscular Hemoglobin Concent 34 g/dL (31-37) Red Cell Distribution Width 15.6 % (11.5-14.5) Platelet Count 80 x10^3/uL (140-400) Neutrophils (%) (Auto) 76 % (31-73) Lymphocytes (%) (Auto) 17 % (24-48) Monocytes (%) (Auto) 6 % (0-9) Eosinophils (%) (Auto) 1 % (0-3) Basophils (%) (Auto) 0 % (0-3) Neutrophils # (Auto) 11.9 x10^3/uL (1.8-7.7) Lymphocytes # (Auto) 2.7 x10^3/uL (1.0-4.8) Monocytes # (Auto) 0.9 x10^3/uL (0.0-1.1) Eosinophils # (Auto) 0.1 x10^3/uL (0.0-0.7) Basophils # (Auto) 0.0 x10^3/uL (0.0-0.2) Sodium Level 138 mmol/L (136-145) Potassium Level 3.2 mmol/L (3.5-5.1) Chloride Level 102 mmol/L (98-107) Carbon Dioxide Level 26 mmol/L (21-32) Anion Gap 10 (6-14) Blood Urea Nitrogen 29 mg/dL (7-20) Creatinine 0.9 mg/dL (0.6-1.0) Estimated GFR (Cockcroft-Gault) 70.8 Glucose Level 133 mg/dL (70-99) Calcium Level 8.0 mg/dL (8.5-10.1) Phosphorus Level 2.8 mg/dL (2.6-4.7) Magnesium Level 2.0 mg/dL (1.8-2.4) Total Bilirubin 1.2 mg/dL (0.2-1.0) Direct Bilirubin 0.8 mg/dL (0.0-0.2) Aspartate Amino Transf (AST/SGOT) 616 U/L (15-37) Alanine Aminotransferase (ALT/SGPT) 517 U/L (14-59) Alkaline Phosphatase 313 U/L (46-116) Total Protein 6.4 g/dL (6.4-8.2) Albumin 2.3 g/dL (3.4-5.0) Micro Microbiology 09/16/18 Blood Culture - Preliminary, Resulted NO GROWTH AFTER 2 DAYS Objective Assessment GNR bacteremia with septic shock requiring vasopressor support, 09/16 - now off pressors Transaminitis - worse ? Meropenem Lactic acidosis Pyelonephritis Leukopenia - now leukocytosis - better s/p steroids Ureteral calculi with hydronephrosis s/p emergent right stent placement, 09/16 DOLLY Severe hepatic steatosis Obesity h/o E. coli (gracia-S) Plan Plan of Care Discontinue meropenem with increased LFTs - begin Cefepime ? Fluid overload One time dose Rocephin in ER, 09/16 One time dose dexamethasone, 09/16 Monitor renal function/urine output f/u cultures F/u LFTs - U/S D/w nursing re ? need for IVF - to contact primary SILVANO ANDREW MD Sep 19, 2018 15:27
[2018-09-19 19:00] VITALS: BP 146/101
[2018-09-19] MEDS: traMADol 50 MG TABLET PO PRN (19:52)
[2018-09-19] MEDS ORDERED: IPRATRPIUM/ALBUTEROL 0.5/2.5MG 3 ML NEBU. NEB PRN (20:45)
[2018-09-19] MEDS: CEFEPIME HCL IV Push 2 GM VIAL. IVP SCH (21:11)
[2018-09-19 23:59] VITALS: BP 148/94
[2018-09-20 03:00] VITALS: BP 116/73
[2018-09-20] MEDS: CEFEPIME HCL IV Push 2 GM VIAL. IVP SCH ×2 (05:59→13:26)
[2018-09-20] MEDS: traMADol 50 MG TABLET PO PRN ×2 (06:00→20:13)
[2018-09-20 06:12] LABS: BASO % 0 % (0-3); EOS # 0.1 x10^3/uL (0.0-0.7); EOS % 1 % (0-3); HEMATOCRIT 32.8 % (36.0-47.0); HEMOGLOBIN 11.3 g/dL (12.0-15.5); LYMPH # 2.9 x10^3/uL (1.0-4.8); LYMPH % 20 % (24-48); MEAN CORPUSCULAR HEMOGLOBIN 28 pg (25-35); MEAN CORPUSCULAR HGB CONC 34 g/dL (31-37); MEAN CORPUSCULAR VOLUME 82 fL (79-100); MONO # 1.5 x10^3/uL (0.0-1.1); MONO % 10 % (0-9); NEUT # 9.9 x10^3/uL (1.8-7.7); NEUT % 69 % (31-73); PLATELET COUNT 89 x10^3/uL (140-400); RED CELL DISTRIBUTION WIDTH 15.5 % (11.5-14.5); WHITE BLOOD COUNT 14.5 x10^3/uL (4.0-11.0)
[2018-09-20 06:31] LABS: CALCIUM 8.1 mg/dL (8.5-10.1); CREATININE 0.8 mg/dL (0.6-1.0); DIRECT BILIRUBIN 1.1 mg/dL (0.0-0.2); GFR 81.2; TOTAL BILIRUBIN 1.7 mg/dL (0.2-1.0); TOTAL PROTEIN 6.3 g/dL (6.4-8.2)
[2018-09-20 07:00] VITALS: BP 138/99
[2018-09-20] MEDS: LACTOBACILLUS RHAMNOSUS GG 1 CAPSULE. PO SCH ×2 (07:35→20:13)
--- NOTE | 2018-09-20 08:41 | RAD ---
CLINICAL HISTORY: Elevated LFTs, hepatic steatosis, evaluate gallbladder. COMPARISON: None available. TECHNIQUE: Limited ultrasound examination of the right upper quadrant of the abdomen was performed FINDINGS: Visualized portions of the pancreas are unremarkable although the majority is obscured by overlying bowel gas. Liver: The liver measures 23.6 cm in length in the right mid clavicular line. Increased hepatic echogenicity may be seen with hepatic steatosis.. There is no focal abnormality of the liver. Portal vein is patent. Hepatic veins are patent.. Gallbladder/Biliary: Gallbladder wall is mildly thickened measuring 4 mm. Is trace pericholecystic fluid versus focal fatty sparing along the gallbladder fossa.. Gallstones are seen with shadowing of the entire gallbladder.. There is pain with direct transducer pressure over the gallbladder.The common bile duct measures 0.6 cm. The right kidney measures 13.3 cm in bipolar length. No focal renal lesion. No hydronephrosis. Normal renal cortical echotexture. There is no free fluid in the subhepatic space. IMPRESSION: 1. Gallbladder wall thickening with trace pericholecystic fluid, gallstones and positive sonographic David's sign is consistent with acute cholecystitis. 2. Hepatomegaly and hepatic steatosis. Electronically signed by: Bruce Loera MD (09/20/2018 8:38 AM) [id number]
--- NOTE | 2018-09-20 08:53 | PDOC ---
PROGRESS NOTES Chief Complaint Chief Complaint Post-op cystoscopy Right Ureterolithiasis Right Hydronephrosis Sepsis - gram negative bacteremia Gestational diabetes Tubal ligation Transaminitis DOLLY - vasomotor nephropathy present on admission Thrombocytopenia Acute cholecystitis History of Present Illness History of Present Illness Having pain immediately relieved by morphine. LFTs up more today. RUQ US consistent with acute cholecystitis. Pt is eating and talkative, has ice on her abdomen. She really does not wish for surgery again, but is amenable to it if necessary. CONOR RN Reviewed pt's chart Vitals Vitals Vital Signs Date Time Temp Pulse Resp B/P (MAP) Pulse Ox O2 Delivery O2 Flow Rate FiO2 09/20/18 07:35 18 Room Air 09/20/18 07:00 98.3 82 138/99 (112) 95 98.3 09/20/18 06:00 2.0 Physical Exam Physical Exam GENERAL: Propped up in bed, alert, looks better HEENT: Pupils equally round. Oral cavity pink. NECK: Supple. LUNGS: Crackles at the base HEART: S1 and S2, regular ABDOMEN: Obese, soft and nontender with bowel sounds present. BACK: mild right CVAT. GENITOURINARY: Indwelling Arriaga in place. EXTREMITIES: No gross edema or cyanosis. SKIN: Warm to touch. No signs of rash. NEUROLOGIC: Alert, answering questions appropriately. PIV General: Alert, Cooperative, No acute distress Heart: Regular rate, Normal S1, Normal S2 Lungs: Clear Abdomen: Normal bowel sounds, Soft Extremities: No clubbing, No cyanosis Skin: No rashes, No breakdown Labs LABS Laboratory Tests Test 09/19/18 10:11 09/20/18 05:20 White Blood Count 15.6 x10^3/uL (4.0-11.0) 14.5 x10^3/uL (4.0-11.0) Red Blood Count 3.66 x10^6/uL (3.50-5.40) 4.00 x10^6/uL (3.50-5.40) Hemoglobin 10.3 g/dL (12.0-15.5) 11.3 g/dL (12.0-15.5) Hematocrit 30.2 % (36.0-47.0) 32.8 % (36.0-47.0) Mean Corpuscular Volume 82 fL (79-100) 82 fL (79-100) Mean Corpuscular Hemoglobin 28 pg (25-35) 28 pg (25-35) Mean Corpuscular Hemoglobin Concent 34 g/dL (31-37) 34 g/dL (31-37) Red Cell Distribution Width 15.6 % (11.5-14.5) 15.5 % (11.5-14.5) Platelet Count 80 x10^3/uL (140-400) 89 x10^3/uL (140-400) Neutrophils (%) (Auto) 76 % (31-73) 69 % (31-73) Lymphocytes (%) (Auto) 17 % (24-48) 20 % (24-48) Monocytes (%) (Auto) 6 % (0-9) 10 % (0-9) Eosinophils (%) (Auto) 1 % (0-3) 1 % (0-3) Basophils (%) (Auto) 0 % (0-3) 0 % (0-3) Neutrophils # (Auto) 11.9 x10^3/uL (1.8-7.7) 9.9 x10^3/uL (1.8-7.7) Lymphocytes # (Auto) 2.7 x10^3/uL (1.0-4.8) 2.9 x10^3/uL (1.0-4.8) Monocytes # (Auto) 0.9 x10^3/uL (0.0-1.1) 1.5 x10^3/uL (0.0-1.1) Eosinophils # (Auto) 0.1 x10^3/uL (0.0-0.7) 0.1 x10^3/uL (0.0-0.7) Basophils # (Auto) 0.0 x10^3/uL (0.0-0.2) 0.0 x10^3/uL (0.0-0.2) Sodium Level 138 mmol/L (136-145) 138 mmol/L (136-145) Potassium Level 3.2 mmol/L (3.5-5.1) 3.0 mmol/L (3.5-5.1) Chloride Level 102 mmol/L (98-107) 101 mmol/L (98-107) Carbon Dioxide Level 26 mmol/L (21-32) 26 mmol/L (21-32) Anion Gap 10 (6-14) 11 (6-14) Blood Urea Nitrogen 29 mg/dL (7-20) 22 mg/dL (7-20) Creatinine 0.9 mg/dL (0.6-1.0) 0.8 mg/dL (0.6-1.0) Estimated GFR (Cockcroft-Gault) 70.8 81.2 Glucose Level 133 mg/dL (70-99) 101 mg/dL (70-99) Calcium Level 8.0 mg/dL (8.5-10.1) 8.1 mg/dL (8.5-10.1) Phosphorus Level 2.8 mg/dL (2.6-4.7) Magnesium Level 2.0 mg/dL (1.8-2.4) Total Bilirubin 1.2 mg/dL (0.2-1.0) 1.7 mg/dL (0.2-1.0) Direct Bilirubin 0.8 mg/dL (0.0-0.2) 1.1 mg/dL (0.0-0.2) Aspartate Amino Transf (AST/SGOT) 616 U/L (15-37) 481 U/L (15-37) Alanine Aminotransferase (ALT/SGPT) 517 U/L (14-59) 501 U/L (14-59) Alkaline Phosphatase 313 U/L (46-116) 398 U/L (46-116) Total Protein 6.4 g/dL (6.4-8.2) 6.3 g/dL (6.4-8.2) Albumin 2.3 g/dL (3.4-5.0) 2.0 g/dL (3.4-5.0) Comment Review of Relevant I have reviewed the following items chidi (where applicable) has been applied. Labs Laboratory Tests Test 09/19/18 10:11 09/20/18 05:20 White Blood Count 15.6 x10^3/uL (4.0-11.0) 14.5 x10^3/uL (4.0-11.0) Red Blood Count 3.66 x10^6/uL (3.50-5.40) 4.00 x10^6/uL (3.50-5.40) Hemoglobin 10.3 g/dL (12.0-15.5) 11.3 g/dL (12.0-15.5) Hematocrit 30.2 % (36.0-47.0) 32.8 % (36.0-47.0) Mean Corpuscular Volume 82 fL (79-100) 82 fL (79-100) Mean Corpuscular Hemoglobin 28 pg (25-35) 28 pg (25-35) Mean Corpuscular Hemoglobin Concent 34 g/dL (31-37) 34 g/dL (31-37) Red Cell Distribution Width 15.6 % (11.5-14.5) 15.5 % (11.5-14.5) Platelet Count 80 x10^3/uL (140-400) 89 x10^3/uL (140-400) Neutrophils (%) (Auto) 76 % (31-73) 69 % (31-73) Lymphocytes (%) (Auto) 17 % (24-48) 20 % (24-48) Monocytes (%) (Auto) 6 % (0-9) 10 % (0-9) Eosinophils (%) (Auto) 1 % (0-3) 1 % (0-3) Basophils (%) (Auto) 0 % (0-3) 0 % (0-3) Neutrophils # (Auto) 11.9 x10^3/uL (1.8-7.7) 9.9 x10^3/uL (1.8-7.7) Lymphocytes # (Auto) 2.7 x10^3/uL (1.0-4.8) 2.9 x10^3/uL (1.0-4.8) Monocytes # (Auto) 0.9 x10^3/uL (0.0-1.1) 1.5 x10^3/uL (0.0-1.1) Eosinophils # (Auto) 0.1 x10^3/uL (0.0-0.7) 0.1 x10^3/uL (0.0-0.7) Basophils # (Auto) 0.0 x10^3/uL (0.0-0.2) 0.0 x10^3/uL (0.0-0.2) Sodium Level 138 mmol/L (136-145) 138 mmol/L (136-145) Potassium Level 3.2 mmol/L (3.5-5.1) 3.0 mmol/L (3.5-5.1) Chloride Level 102 mmol/L (98-107) 101 mmol/L (98-107) Carbon Dioxide Level 26 mmol/L (21-32) 26 mmol/L (21-32) Anion Gap 10 (6-14) 11 (6-14) Blood Urea Nitrogen 29 mg/dL (7-20) 22 mg/dL (7-20) Creatinine 0.9 mg/dL (0.6-1.0) 0.8 mg/dL (0.6-1.0) Estimated GFR (Cockcroft-Gault) 70.8 81.2 Glucose Level 133 mg/dL (70-99) 101 mg/dL (70-99) Calcium Level 8.0 mg/dL (8.5-10.1) 8.1 mg/dL (8.5-10.1) Phosphorus Level 2.8 mg/dL (2.6-4.7) Magnesium Level 2.0 mg/dL (1.8-2.4) Total Bilirubin 1.2 mg/dL (0.2-1.0) 1.7 mg/dL (0.2-1.0) Direct Bilirubin 0.8 mg/dL (0.0-0.2) 1.1 mg/dL (0.0-0.2) Aspartate Amino Transf (AST/SGOT) 616 U/L (15-37) 481 U/L (15-37) Alanine Aminotransferase (ALT/SGPT) 517 U/L (14-59) 501 U/L (14-59) Alkaline Phosphatase 313 U/L (46-116) 398 U/L (46-116) Total Protein 6.4 g/dL (6.4-8.2) 6.3 g/dL (6.4-8.2) Albumin 2.3 g/dL (3.4-5.0) 2.0 g/dL (3.4-5.0) Laboratory Tests Test 09/19/18 10:11 09/20/18 05:20 White Blood Count 15.6 x10^3/uL (4.0-11.0) 14.5 x10^3/uL (4.0-11.0) Red Blood Count 3.66 x10^6/uL (3.50-5.40) 4.00 x10^6/uL (3.50-5.40) Hemoglobin 10.3 g/dL (12.0-15.5) 11.3 g/dL (12.0-15.5) Hematocrit 30.2 % (36.0-47.0) 32.8 % (36.0-47.0) Mean Corpuscular Volume 82 fL (79-100) 82 fL (79-100) Mean Corpuscular Hemoglobin 28 pg (25-35) 28 pg (25-35) Mean Corpuscular Hemoglobin Concent 34 g/dL (31-37) 34 g/dL (31-37) Red Cell Distribution Width 15.6 % (11.5-14.5) 15.5 % (11.5-14.5) Platelet Count 80 x10^3/uL (140-400) 89 x10^3/uL (140-400) Neutrophils (%) (Auto) 76 % (31-73) 69 % (31-73) Lymphocytes (%) (Auto) 17 % (24-48) 20 % (24-48) Monocytes (%) (Auto) 6 % (0-9) 10 % (0-9) Eosinophils (%) (Auto) 1 % (0-3) 1 % (0-3) Basophils (%) (Auto) 0 % (0-3) 0 % (0-3) Neutrophils # (Auto) 11.9 x10^3/uL (1.8-7.7) 9.9 x10^3/uL (1.8-7.7) Lymphocytes # (Auto) 2.7 x10^3/uL (1.0-4.8) 2.9 x10^3/uL (1.0-4.8) Monocytes # (Auto) 0.9 x10^3/uL (0.0-1.1) 1.5 x10^3/uL (0.0-1.1) Eosinophils # (Auto) 0.1 x10^3/uL (0.0-0.7) 0.1 x10^3/uL (0.0-0.7) Basophils # (Auto) 0.0 x10^3/uL (0.0-0.2) 0.0 x10^3/uL (0.0-0.2) Sodium Level 138 mmol/L (136-145) 138 mmol/L (136-145) Potassium Level 3.2 mmol/L (3.5-5.1) 3.0 mmol/L (3.5-5.1) Chloride Level 102 mmol/L (98-107) 101 mmol/L (98-107) Carbon Dioxide Level 26 mmol/L (21-32) 26 mmol/L (21-32) Anion Gap 10 (6-14) 11 (6-14) Blood Urea Nitrogen 29 mg/dL (7-20) 22 mg/dL (7-20) Creatinine 0.9 mg/dL (0.6-1.0) 0.8 mg/dL (0.6-1.0) Estimated GFR (Cockcroft-Gault) 70.8 81.2 Glucose Level 133 mg/dL (70-99) 101 mg/dL (70-99) Calcium Level 8.0 mg/dL (8.5-10.1) 8.1 mg/dL (8.5-10.1) Phosphorus Level 2.8 mg/dL (2.6-4.7) Magnesium Level 2.0 mg/dL (1.8-2.4) Total Bilirubin 1.2 mg/dL (0.2-1.0) 1.7 mg/dL (0.2-1.0) Direct Bilirubin 0.8 mg/dL (0.0-0.2) 1.1 mg/dL (0.0-0.2) Aspartate Amino Transf (AST/SGOT) 616 U/L (15-37) 481 U/L (15-37) Alanine Aminotransferase (ALT/SGPT) 517 U/L (14-59) 501 U/L (14-59) Alkaline Phosphatase 313 U/L (46-116) 398 U/L (46-116) Total Protein 6.4 g/dL (6.4-8.2) 6.3 g/dL (6.4-8.2) Albumin 2.3 g/dL (3.4-5.0) 2.0 g/dL (3.4-5.0) Microbiology 09/16/18 Urine Culture - Preliminary, Resulted 09/16/18 Urine Culture Result 1 (CYNTHIA) - Preliminary, Resulted 09/16/18 Blood Culture - Preliminary, Resulted NO GROWTH AFTER 3 DAYS Medications Current Medications Sodium Chloride 1,000 ml @ 1,000 mls/hr 1X ONCE IV Last administered on 09/16/18 20:20; Start 09/16/18 at 20:15; Stop 09/16/18 at 21:14; Status DC Sodium Chloride 1,000 ml @ 1,000 mls/hr 1X ONCE IV Last administered on 09/16/18at 20:20; Start 09/16/18 at 20:15; Stop 09/16/18 at 21:14; Status DC Acetaminophen (Tylenol) 1,000 mg 1X ONCE PO Last administered on 09/16/18 20:25; Start 09/16/18 at 20:15; Stop 09/16/18 at 20:16; Status DC Fentanyl Citrate (Fentanyl 2ml Vial) 50 mcg 1X ONCE IV Last administered on 09/16/18 20:25; Start 09/16/18 at 20:15; Stop 09/16/18 at 20:16; Status DC Ceftriaxone Sodium (Rocephin) 1 gm 1X ONCE IVP Last administered on 09/16/18 20:25; Start 09/16/18 at 20:15; Stop 09/16/18 at 20:16; Status DC Sodium Chloride 1,000 ml @ 1,560 mls/hr Q39M IV Last administered on 09/16/18 21:39; Start 09/16/18 at 20:45; Stop 09/16/18 at 21:45; Status DC Iohexol (Omnipaque 350 Mg/ml) 75 ml 1X ONCE IV Last administered on 09/16/18 21:04; Start 09/16/18 at 20:45; Stop 09/16/18 at 20:46; Status DC Info (CONTRAST GIVEN -- Rx MONITORING) 1 each PRN DAILY PRN MC SEE COMMENTS; Start 09/16/18 at 20:45; Stop 09/18/18 at 20:44; Status DC Fentanyl Citrate (Fentanyl 2ml Vial) 50 mcg 1X ONCE IV Last administered on 09/16/18at 21:27; Start 09/16/18 at 21:30; Stop 09/16/18 at 21:31; Status DC Sodium Chloride 1,000 ml @ 150 mls/hr Q6H40M IV Last administered on 09/17/18at 04:52; Start 09/16/18 at 22:00; Stop 09/17/18 at 15:00; Status DC Sevoflurane (Ultane) 30 ml STK-MED ONCE IH ; Start 09/16/18 at 22:57; Stop 09/16/18 at 22:58; Status DC Propofol 20 ml @ As Directed STK-MED ONCE IV ; Start 09/16/18 at 22:58; Stop 09/16/18 at 22:59; Status DC Lidocaine HCl (Lidocaine Pf 2% Vial) 5 ml STK-MED ONCE .ROUTE ; Start 09/16/18 at 22:58; Stop 09/16/18 at 22:59; Status DC Dexamethasone Sodium Phosphate (Decadron) 4 mg STK-MED ONCE .ROUTE ; Start 09/16/18 at 22:58; Stop 09/16/18 at 22:59; Status DC Ketorolac Tromethamine (Toradol For Or Only) 30 mg STK-MED ONCE INJ ; Start 09/16/18 at 22:58; Stop 09/16/18 at 22:59; Status DC Ondansetron HCl (Zofran) 4 mg STK-MED ONCE .ROUTE ; Start 09/16/18 at 22:58; Stop 09/16/18 at 22:59; Status DC Ephedrine Sulfate (ePHEDrine PF IN SALINE SYRINGE) 50 mg STK-MED ONCE IV ; Start 09/16/18 at 23:23; Stop 09/16/18 at 23:24; Status DC Phenylephrine HCl (PHENYLEPHRINE in 0.9% NACL PF) 1 mg STK-MED ONCE IV ; Start 09/16/18 at 23:23; Stop 09/16/18 at 23:24; Status DC Iohexol (Omnipaque 300 Mg/ml) 50 ml STK-MED ONCE .ROUTE Last administered on 09/16/18at 23:50; Start 09/16/18 at 22:23; Stop 09/16/18 at 23:23; Status DC Albumin Human 500 ml @ As Directed STK-MED ONCE IV ; Start 09/16/18 at 23:43; Stop 09/16/18 at 23:44; Status DC Vasopressin (Vasostrict) 20 unit STK-MED ONCE .ROUTE ; Start 09/16/18 at 23:48; Stop 09/16/18 at 23:49; Status DC Albumin Human 500 ml @ 500 mls/hr 1X ONCE IV Last administered on 09/17/18at 01:00; Start 09/17/18 at 01:00; Stop 09/17/18 at 01:59; Status DC Albumin Human 500 ml @ 125 mls/hr 1X ONCE IV ; Start 09/17/18 at 00:45; Stop 09/17/18 at 04:44; Status UNV Ondansetron HCl (Zofran) 4 mg PRN Q6HRS PRN IV NAUSEA/VOMITING; Start 09/17/18 at 01:00; Stop 09/17/18 at 10:40; Status DC Fentanyl Citrate (Fentanyl 2ml Vial) 25 mcg PRN Q5MIN PRN IV MILD PAIN 1-3; Start 09/17/18 at 01:00; Stop 09/17/18 at 10:40; Status DC Fentanyl Citrate (Fentanyl 2ml Vial) 50 mcg PRN Q5MIN PRN IV MODERATE TO SEVERE PAIN; Start 09/17/18 at 01:00; Stop 09/17/18 at 10:40; Status DC Morphine Sulfate (Morphine Sulfate) 1 mg PRN Q10MIN PRN IV SEVERE PAIN 7-10; Start 09/17/18 at 01:00; Stop 09/17/18 at 10:40; Status DC Ringer's Solution 1,000 ml @ 30 mls/hr Q24H IV ; Start 09/17/18 at 00:57; Stop 09/17/18 at 10:40; Status DC Lidocaine HCl (Xylocaine-Mpf 1% 2ml Vial) 2 ml PRN 1X PRN ID PRIOR TO IV START; Start 09/17/18 at 01:00; Stop 09/17/18 at 10:40; Status DC Hydromorphone HCl (Dilaudid) 0.5 mg PRN Q10MIN PRN IV SEV PAIN, Second choice; Start 09/17/18 at 01:00; Stop 09/17/18 at 10:40; Status DC Prochlorperazine Edisylate (Compazine) 5 mg PACU PRN PRN IV NAUSEA, MRX1; Start 09/17/18 at 01:00; Stop 09/17/18 at 10:40; Status DC Norepinephrine Bitartrate 250 ml @ 20.757 mls/ hr CONT PRN IV SEE I/O RECORD Last administered on 09/17/18at 14:59; Start 09/17/18 at 02:00; Stop 09/18/18 at 17:41; Status DC Acetaminophen (Tylenol) 650 mg PRN Q6HRS PRN PO MIGRAINE HEADACHE Last administered on 09/17/18 02:31; Start 09/17/18 at 02:00 Morphine Sulfate (Morphine Sulfate) 1 mg PRN Q2HR PRN IV MODERATE PAIN 4-6 Last administered on 09/19/18 09:23; Start 09/17/18 at 02:00 Morphine Sulfate (Morphine Sulfate) 2 mg PRN Q2HR PRN IV SEVERE PAIN 7-10 Last administered on 09/19/18 15:51; Start 09/17/18 at 02:00 Meropenem 500 mg/ Sodium Chloride 50 ml @ 100 mls/hr Q6HRS IV Last administ ered on 09/19/18 14:05; Start 09/17/18 at 10:00; Stop 09/19/18 at 15:27; Status DC Sodium Bicarbonate (Sodium Bicarb Adult 8.4% Syr) 100 meq 1X ONCE IV Last administered on 09/17/18 12:54; Start 09/17/18 at 13:30; Stop 09/17/18 at 13:31; Status DC Lactobacillus Rhamnosus (Culturelle) 1 cap BID PO Last administered on 09/20/18at 07:35; Start 09/17/18 at 21:00 Sodium Bicarbonate 150 meq/Dextrose 1,150 ml @ 150 mls/hr CONT IV ; Start 09/17/18 at 14:00; Status UNV Sodium Bicarbonate 150 meq/Dextrose 1,150 ml @ 75 mls/hr [id number] IV Last administered on 09/18/18at 10:00; Start 09/17/18 at 15:00; Stop 09/18/18 at 18:32; Status DC Sodium Chloride 1,000 ml @ 75 mls/hr [id number] IV Last administered on 09/19/18at 09:23; Start 09/18/18 at 18:30 Tramadol HCl (Ultram) 50 mg PRN Q6HRS PRN PO PAIN Last administered on 09/20/18 06:00; Start 09/19/18 at 13:45 Cefepime HCl (Maxipime) 2 gm Q8HRS IVP Last administered on 09/20/18 06:00; Start 09/19/18 at 22:00 Albuterol/ Ipratropium (Duoneb) 3 ml PRN QID PRN NEB WHEEZES Last administered on 09/19/18at 21:21; Start 09/19/18 at 20:45 Active Scripts Active Levaquin (Levofloxacin) 500 Mg Tablet 500 Mg PO DAILY Reported Tramadol Hcl 50 Mg Tablet 1 Tab PO PRN Q6HRS Vitals/I & O Vital Sign - Last 24 Hours 09/19/18 09/19/18 09/19/18 09/19/18 09:23 11:00 13:45 15:00 Temp 98.5 98.9 98.5 98.9 Pulse 81 81 Resp 26 18 16 18 B/P (MAP) 125/93 (104) 136/96 (109) Pulse Ox 96 93 O2 Delivery Room Air Room Air Room Air Room Air 09/19/18 09/19/18 09/19/18 09/19/18 15:51 16:34 19:00 19:52 Temp 97.3 97.3 Pulse 95 Resp 26 16 19 B/P (MAP) 146/101 (116) Pulse Ox 92 O2 Delivery Room Air Room Air Room Air Room Air 09/19/18 09/19/18 09/19/18 09/19/18 20:00 20:54 21:24 23:59 Temp 97.3 97.3 Pulse 93 Resp 18 B/P (MAP) 148/94 (112) Pulse Ox 92 90 O2 Delivery Room Air Room Air Room Air Room Air 09/20/18 09/20/18 09/20/18 09/20/18 03:00 06:00 07:00 07:35 Temp 98.5 98.3 98.5 98.3 Pulse 92 82 Resp 18 18 18 B/P (MAP) 116/73 (87) 138/99 (112) Pulse Ox 90 95 O2 Delivery Room Air Nasal Cannula Room Air Room Air O2 Flow Rate 2.0 Intake and Output 8/08/3109/19/18 09/20/18 14:59 22:59 06:59 Intake Total 150 ml 350 ml Output Total 1400 ml 1400 ml Balance -1250 ml -1050 ml Images RUQ US - 1. Gallbladder wall thickening with trace pericholecystic fluid, gallstones and positive sonographic David's sign is consistent with acute cholecystitis. 2. Hepatomegaly and hepatic steatosis. CURTIS DUNBAR MD Sep 20, 2018 08:53
--- NOTE | 2018-09-20 09:26 | PDOC ---
JONATHAN HUANG CODE OFFICIAL 09/20/18 0926: SUBJECTIVE Subjective Pt doing well today. No problems would like her catheter out. OBJECTIVE Objective Physical Exam: General appearance: Alert and Oriented Head: Normocephalic, without obvious abnormality Eyes: conjunctivae/corneas clear. PERRL, EOM's intact. Fundi benign Back: No CVA pain bilaterally on testing Lungs: Regular respirations, non labored breathing Abdomen: soft, non-tender. No masses, no organomegaly Pelvic: + Forde catheter draining clear yellow urine. Device in good working order Vital Signs Vital Signs Date Time Temp Pulse Resp B/P (MAP) Pulse Ox O2 Delivery O2 Flow Rate FiO2 09/20/18 07:35 18 Room Air 09/20/18 07:00 98.3 82 18 138/99 (112) 95 Room Air 98.3 09/20/18 06:00 Nasal Cannula 2.0 09/20/18 03:00 98.5 92 18 116/73 (87) 90 Room Air 98.5 09/19/18 23:59 97.3 93 18 148/94 (112) 90 Room Air 97.3 09/19/18 21:24 92 Room Air 09/19/18 20:54 Room Air 09/19/18 20:00 Room Air 09/19/18 19:52 Room Air 09/19/18 19:00 97.3 95 19 146/101 (116) 92 Room Air 97.3 09/19/18 16:34 16 Room Air 09/19/18 15:51 26 Room Air 09/19/18 15:00 98.9 81 18 136/96 (109) 93 Room Air 98.9 09/19/18 13:45 16 Room Air 09/19/18 11:00 98.5 81 18 125/93 (104) 96 Room Air 98.5 I & O Intake and Output 09/20/18 06:59 Intake Total 500 ml Output Total 2800 ml Balance -2300 ml Intake Oral 500 ml Output Urine Total 2800 ml PHYSICAL EXAM Physical Exam Physical Exam: General appearance: Alert and Oriented Head: Normocephalic, without obvious abnormality Eyes: conjunctivae/corneas clear. PERRL, EOM's intact. Fundi benign Back: No CVA pain bilaterally on testing Lungs: Regular respirations, non labored breathing Abdomen: soft, non-tender. No masses, no organomegaly Pelvic: + Forde catheter draining clear yellow urine. Device in good working order ASSESSMENT/PLAN Assessment/Plan Will remove forde catheter today for voiding trial. Nurse to bladder scan patient between 2 and 3 pm today. If PVR is greater than 350, please re-insert forde catheter. If PVR less than 350, please leave Forde out and encourage voiding. 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 Continue antibiotics per medical team. A two week follow up appointment has been arranged for her to see Dr. Savage on 10/04/18 at 1120 am. Appointment card and new patient paperwork given to patient. COMMENT Lab Laboratory Tests Test 09/19/18 10:11 09/20/18 05:20 White Blood Count 15.6 x10^3/uL (4.0-11.0) 14.5 x10^3/uL (4.0-11.0) Red Blood Count 3.66 x10^6/uL (3.50-5.40) 4.00 x10^6/uL (3.50-5.40) Hemoglobin 10.3 g/dL (12.0-15.5) 11.3 g/dL (12.0-15.5) Hematocrit 30.2 % (36.0-47.0) 32.8 % (36.0-47.0) Mean Corpuscular Volume 82 fL (79-100) 82 fL (79-100) Mean Corpuscular Hemoglobin 28 pg (25-35) 28 pg (25-35) Mean Corpuscular Hemoglobin Concent 34 g/dL (31-37) 34 g/dL (31-37) Red Cell Distribution Width 15.6 % (11.5-14.5) 15.5 % (11.5-14.5) Platelet Count 80 x10^3/uL (140-400) 89 x10^3/uL (140-400) Neutrophils (%) (Auto) 76 % (31-73) 69 % (31-73) Lymphocytes (%) (Auto) 17 % (24-48) 20 % (24-48) Monocytes (%) (Auto) 6 % (0-9) 10 % (0-9) Eosinophils (%) (Auto) 1 % (0-3) 1 % (0-3) Basophils (%) (Auto) 0 % (0-3) 0 % (0-3) Neutrophils # (Auto) 11.9 x10^3/uL (1.8-7.7) 9.9 x10^3/uL (1.8-7.7) Lymphocytes # (Auto) 2.7 x10^3/uL (1.0-4.8) 2.9 x10^3/uL (1.0-4.8) Monocytes # (Auto) 0.9 x10^3/uL (0.0-1.1) 1.5 x10^3/uL (0.0-1.1) Eosinophils # (Auto) 0.1 x10^3/uL (0.0-0.7) 0.1 x10^3/uL (0.0-0.7) Basophils # (Auto) 0.0 x10^3/uL (0.0-0.2) 0.0 x10^3/uL (0.0-0.2) Sodium Level 138 mmol/L (136-145) 138 mmol/L (136-145) Potassium Level 3.2 mmol/L (3.5-5.1) 3.0 mmol/L (3.5-5.1) Chloride Level 102 mmol/L (98-107) 101 mmol/L (98-107) Carbon Dioxide Level 26 mmol/L (21-32) 26 mmol/L (21-32) Anion Gap 10 (6-14) 11 (6-14) Blood Urea Nitrogen 29 mg/dL (7-20) 22 mg/dL (7-20) Creatinine 0.9 mg/dL (0.6-1.0) 0.8 mg/dL (0.6-1.0) Estimated GFR (Cockcroft-Gault) 70.8 81.2 Glucose Level 133 mg/dL (70-99) 101 mg/dL (70-99) Calcium Level 8.0 mg/dL (8.5-10.1) 8.1 mg/dL (8.5-10.1) Phosphorus Level 2.8 mg/dL (2.6-4.7) Magnesium Level 2.0 mg/dL (1.8-2.4) Total Bilirubin 1.2 mg/dL (0.2-1.0) 1.7 mg/dL (0.2-1.0) Direct Bilirubin 0.8 mg/dL (0.0-0.2) 1.1 mg/dL (0.0-0.2) Aspartate Amino Transf (AST/SGOT) 616 U/L (15-37) 481 U/L (15-37) Alanine Aminotransferase (ALT/SGPT) 517 U/L (14-59) 501 U/L (14-59) Alkaline Phosphatase 313 U/L (46-116) 398 U/L (46-116) Total Protein 6.4 g/dL (6.4-8.2) 6.3 g/dL (6.4-8.2) Albumin 2.3 g/dL (3.4-5.0) 2.0 g/dL (3.4-5.0) CARMEN SAVAGE MD 09/20/18 1538: ASSESSMENT/PLAN Assessment/Plan Agree with assessment / plan. JONATHAN HUANG APRN Sep 20, 2018 09:26 CARMEN SAVAGE MD Sep 20, 2018 15:38
[2018-09-20] MEDS ORDERED: POTASSIUM CHLORIDE 20 MEQ TABLET.ER. PO ONE (09:30)
[2018-09-20] MEDS: POTASSIUM CHLORIDE 10MEQ 100 ML IV SCH ×2 (09:43→10:57)
[2018-09-20] MEDS: IV NORMAL SALINE 1000ML BAG 1,000 ML IV SCH ×2 (10:30→23:50)
[2018-09-20 10:47] LABS: % BANDS 2 % (0-9); % BASOS 1 % (0-3); % EOS 1 % (0-5); % LYMPHS 27 % (24-48); % MONOS 11 % (0-10); % SEGS 58 % (35-66)
[2018-09-20 10:48] LABS: PLT ESTIMATE DECREASED (ADEQUATE)
[2018-09-20 11:00] VITALS: BP 141/99
[2018-09-20] MEDS ORDERED: MAGNESIUM SULFATE 4GM 100 ML IV ONE (11:00)
--- NOTE | 2018-09-20 11:32 | PDOC ---
Infectious Disease Note Subjective Subjective Breathing treatment yesterday for c/o SOA, better today Comfortable, denies pain/F/C/aches/N/V/D Appetite slowly improving ROS ROS per HPI Vital Sign Vital Signs Vital Signs Date Time Temp Pulse Resp B/P (MAP) Pulse Ox O2 Delivery O2 Flow Rate FiO2 09/20/18 07:35 18 Room Air 09/20/18 07:00 98.3 82 138/99 (112) 95 98.3 09/20/18 06:00 2.0 Physical Exam PHYSICAL EXAM GENERAL: Propped up in bed, alert, looks better HEENT: Pupils equally round. Oral cavity pink. NECK: Supple. LUNGS: Crackles at the base HEART: S1 and S2, regular ABDOMEN: Obese, soft, RUQ tender BACK: mild right CVAT. EXTREMITIES: No gross edema or cyanosis. SKIN: Warm to touch. No signs of rash. NEUROLOGIC: Alert, answering questions appropriately. PIV Labs Lab Laboratory Tests Test 09/20/18 05:20 White Blood Count 14.5 x10^3/uL (4.0-11.0) Red Blood Count 4.00 x10^6/uL (3.50-5.40) Hemoglobin 11.3 g/dL (12.0-15.5) Hematocrit 32.8 % (36.0-47.0) Mean Corpuscular Volume 82 fL (79-100) Mean Corpuscular Hemoglobin 28 pg (25-35) Mean Corpuscular Hemoglobin Concent 34 g/dL (31-37) Red Cell Distribution Width 15.5 % (11.5-14.5) Platelet Count 89 x10^3/uL (140-400) Neutrophils (%) (Auto) 69 % (31-73) Lymphocytes (%) (Auto) 20 % (24-48) Monocytes (%) (Auto) 10 % (0-9) Eosinophils (%) (Auto) 1 % (0-3) Basophils (%) (Auto) 0 % (0-3) Neutrophils # (Auto) 9.9 x10^3/uL (1.8-7.7) Lymphocytes # (Auto) 2.9 x10^3/uL (1.0-4.8) Monocytes # (Auto) 1.5 x10^3/uL (0.0-1.1) Eosinophils # (Auto) 0.1 x10^3/uL (0.0-0.7) Basophils # (Auto) 0.0 x10^3/uL (0.0-0.2) Segmented Neutrophils % 58 % (35-66) Band Neutrophils % 2 % (0-9) Lymphocytes % 27 % (24-48) Monocytes % 11 % (0-10) Eosinophils % 1 % (0-5) Basophils % 1 % (0-3) Platelet Estimate Decreased (ADEQUATE) Sodium Level 138 mmol/L (136-145) Potassium Level 3.0 mmol/L (3.5-5.1) Chloride Level 101 mmol/L (98-107) Carbon Dioxide Level 26 mmol/L (21-32) Anion Gap 11 (6-14) Blood Urea Nitrogen 22 mg/dL (7-20) Creatinine 0.8 mg/dL (0.6-1.0) Estimated GFR (Cockcroft-Gault) 81.2 Glucose Level 101 mg/dL (70-99) Calcium Level 8.1 mg/dL (8.5-10.1) Magnesium Level 1.7 mg/dL (1.8-2.4) Total Bilirubin 1.7 mg/dL (0.2-1.0) Direct Bilirubin 1.1 mg/dL (0.0-0.2) Aspartate Amino Transf (AST/SGOT) 481 U/L (15-37) Alanine Aminotransferase (ALT/SGPT) 501 U/L (14-59) Alkaline Phosphatase 398 U/L (46-116) Total Protein 6.3 g/dL (6.4-8.2) Albumin 2.0 g/dL (3.4-5.0) abd US 1. Gallbladder wall thickening with trace pericholecystic fluid, gallstones and positive sonographic David's sign is consistent with acute cholecystitis. 2. Hepatomegaly and hepatic steatosis. Micro URINE CULTURE RES 1 Final Escherichia coli 10,000-25,000 colony forming units per mL Cefazolin <=4 ug/mL Cefazolin with an CYNTHIA <=16 predicts susceptibility to the oral agents cefaclor, cefdinir, cefpodoxime, cefprozil, cefuroxime, cephalexin, and loracarbef when used for therapy of uncomplicated urinary tract infections due to E. coli, Klebsiella pneumoniae, and Proteus mirabilis. Performing lab: [facility] [address], [place] [address] Dir: LEW Jeffries MD ANTIMICROBIAL SUSCEPTIBILITY Final S = Susceptible; I = Intermediate; R = Resistant P = Positive; N = Negative MICS are expressed in micrograms per mL Antibiotic RSLT#1 RSLT#2 RSLT#3 RSLT#4 Amoxicillin/Clavulanic Acid S =4 Ampicillin S =8 Cefepime S<=0.12 Ceftriaxone S<=0.25 Cefuroxime S =4 Ciprofloxacin S<=0.25 Ertapenem S<=0.12 Gentamicin S<=1 Imipenem S<=0.25 Levofloxacin S<=0.12 Meropenem S<=0.25 Nitrofurantoin S<=16 Piperacillin/Tazobactam S<=4 Tetracycline S =2 Tobramycin S<=1 Trimethoprim/Sulfa S<=20 09/16. BLOOD CULTURE Final GRAM NEGATIVE RODS IN 2 OF 4 BOTTLES (2 SETS) 09/16. URINE CULTURE RES 1 Final Mixed urogenital nasrin Greater than 100,000 colony forming units per mL 09/16. URINE CULTURE RES 1 Preliminary Escherichia coli 10,000-25,000 colony forming units per mL Objective Assessment GNR bacteremia with septic shock requiring vasopressor support, 09/16 - now off pressors Transaminitis - better Acute gallstone cholecystitis on US Lactic acidosis Pyelonephritis. E. coli in urine, 09/16 Leukopenia - now leukocytosis - better s/p steroids, improving Ureteral calculi with hydronephrosis s/p emergent right stent placement, 09/16 DOLLY - improved Severe hepatic steatosis Obesity h/o E. coli (gracia-S) Plan Plan of Care Discontinue Cefepime (09/19) begin Rocephin Off meropenem since 09/19 with increased LFTs Probiotics ? Fluid overload f/u cultures GI following - F/u HIDA scan Attending Co-Sign Attending Co-Sign The patient was seen and interviewed as well as examined at the bedside. The chart was reviewed. The case was discussed. Agree with the plan of care. WILLIAM WISE APRN Sep 20, 2018 11:32 SILVANO ANDREW MD Sep 20, 2018 16:18
--- NOTE | 2018-09-20 11:58 | PDOC ---
Subjective: Subjective: Doing better. Tolerating PO w/o n/v. Has pain on the right side - not really in RUQ. Objective: Objective: D/w ID - pt report RUQ and epigastric pain. Vital Signs: Vital Signs Date Time Temp Pulse Resp B/P (MAP) Pulse Ox O2 Delivery O2 Flow Rate FiO2 09/20/18 07:35 18 Room Air 09/20/18 07:00 98.3 82 138/99 (112) 95 98.3 09/20/18 06:00 2.0 Labs: Laboratory Tests Test 09/20/18 05:20 White Blood Count 14.5 x10^3/uL Red Blood Count 4.00 x10^6/uL Hemoglobin 11.3 g/dL Hematocrit 32.8 % Mean Corpuscular Volume 82 fL Mean Corpuscular Hemoglobin 28 pg Mean Corpuscular Hemoglobin Concent 34 g/dL Red Cell Distribution Width 15.5 % Platelet Count 89 x10^3/uL Neutrophils (%) (Auto) 69 % Lymphocytes (%) (Auto) 20 % Monocytes (%) (Auto) 10 % Eosinophils (%) (Auto) 1 % Basophils (%) (Auto) 0 % Neutrophils # (Auto) 9.9 x10^3/uL Lymphocytes # (Auto) 2.9 x10^3/uL Monocytes # (Auto) 1.5 x10^3/uL Eosinophils # (Auto) 0.1 x10^3/uL Basophils # (Auto) 0.0 x10^3/uL Segmented Neutrophils % 58 % Band Neutrophils % 2 % Lymphocytes % 27 % Monocytes % 11 % Eosinophils % 1 % Basophils % 1 % Platelet Estimate Decreased Sodium Level 138 mmol/L Potassium Level 3.0 mmol/L Chloride Level 101 mmol/L Carbon Dioxide Level 26 mmol/L Anion Gap 11 Blood Urea Nitrogen 22 mg/dL Creatinine 0.8 mg/dL Estimated GFR (Cockcroft-Gault) 81.2 Glucose Level 101 mg/dL Calcium Level 8.1 mg/dL Magnesium Level 1.7 mg/dL Total Bilirubin 1.7 mg/dL Direct Bilirubin 1.1 mg/dL Aspartate Amino Transf (AST/SGOT) 481 U/L Alanine Aminotransferase (ALT/SGPT) 501 U/L Alkaline Phosphatase 398 U/L Total Protein 6.3 g/dL Albumin 2.0 g/dL Imaging: Abd US FINDINGS: Visualized portions of the pancreas are unremarkable although the majority is obscured by overlying bowel gas. Liver: The liver measures 23.6 cm in length in the right mid clavicular line. Increased hepatic echogenicity may be seen with hepatic steatosis. There is no focal abnormality of the liver. Portal vein is patent. Hepatic veins are patent. Gallbladder/Biliary: Gallbladder wall is mildly thickened measuring 4 mm. Is trace pericholecystic fluid versus focal fatty sparing along the gallbladder fossa.. Gallstones are seen with shadowing of the entire gallbladder.. There is pain with direct transducer pressure over the gallbladder.The common bile duct measures 0.6 cm. The right kidney measures 13.3 cm in bipolar length. No focal renal lesion. No hydronephrosis. Normal renal cortical echotexture. There is no free fluid in the subhepatic space. IMPRESSION: 1. Gallbladder wall thickening with trace pericholecystic fluid, gallstones and positive sonographic David's sign is consistent with acute cholecystitis. 2. Hepatomegaly and hepatic steatosis. PE: GEN: NAD LUNGS: CTAB HEART: RRR ABD: soft, perhaps mild discomfort RUQ but mostly tender toward right flank NEURO/PSYCH: A & O �3 A/P: Sepsis/E coli, s/p ureteral stent Abnormal LFTs - bili and Alk Phos worse, AST and ALT stable Hepatic steatosis -- US as above w/ gallstones and concern for cholecystitis, CBD 6mm. Will ask surgery to see. MARTÍNEZ KILGORE Sep 20, 2018 11:58
[2018-09-20] MEDS: LACTULOSE 20 GM/30 ML SOLUTION. PO SCH ×2 (13:15→20:13)
[2018-09-20 15:00] VITALS: BP 137/95
[2018-09-20] MEDS: cefTRIAXone IV Push 2 GM VIAL. IVP SCH (17:28)
[2018-09-20 19:00] VITALS: BP 158/101
[2018-09-20 22:47] VITALS: BP 155/101
--- NOTE | 2018-09-21 00:05 | NUR ---
IV fluids are being held at this time (per MD) because patient became short of breath and had crackles while fluids were running.
[2018-09-21 02:54] VITALS: BP 145/100
[2018-09-21 07:00] VITALS: BP 148/101
[2018-09-21 08:13] LABS: BASO # 0.1 x10^3/uL (0.0-0.2); BASO % 1 % (0-3); EOS # 0.2 x10^3/uL (0.0-0.7); EOS % 1 % (0-3); HEMATOCRIT 36.9 % (36.0-47.0); HEMOGLOBIN 12.4 g/dL (12.0-15.5); LYMPH # 2.6 x10^3/uL (1.0-4.8); LYMPH % 15 % (24-48); MEAN CORPUSCULAR HEMOGLOBIN 28 pg (25-35); MEAN CORPUSCULAR HGB CONC 34 g/dL (31-37); MEAN CORPUSCULAR VOLUME 83 fL (79-100); MONO # 1.2 x10^3/uL (0.0-1.1); MONO % 7 % (0-9); NEUT # 12.6 x10^3/uL (1.8-7.7); NEUT % 76 % (31-73); PLATELET COUNT 112 x10^3/uL (140-400); RED BLOOD COUNT 4.44 x10^6/uL (3.50-5.40); RED CELL DISTRIBUTION WIDTH 15.8 % (11.5-14.5); WHITE BLOOD COUNT 16.6 x10^3/uL (4.0-11.0)
[2018-09-21 08:23] LABS: CALCIUM 8.5 mg/dL (8.5-10.1); CREATININE 0.7 mg/dL (0.6-1.0); GFR 94.7; POTASSIUM 3.4 mmol/L (3.5-5.1)
[2018-09-21 08:31] LABS: ALBUMIN 2.1 g/dL (3.4-5.0); DIRECT BILIRUBIN 1.2 mg/dL (0.0-0.2); TOTAL BILIRUBIN 2.1 mg/dL (0.2-1.0)
--- NOTE | 2018-09-21 09:35 | RAD ---
Indication: Abdominal gallbladder ultrasound with stones. TECHNIQUE: Nuclear medicine HIDA scan with 5.5 mCi of technetium 99 M Choletec. COMPARISON: Ultrasound from 09/19/2018 FINDINGS: Gallbladder is confidently visualized at 20 minutes and continues to fill in a retrograde fashion. Small bowel activity seen at 10 minutes. IMPRESSION: No scintigraphic evidence of cystic duct obstruction. Electronically signed by: Michele Hills DO (09/21/2018 9:32 AM) [facility]
[2018-09-21] MEDS: LACTULOSE 20 GM/30 ML SOLUTION. PO SCH ×2 (09:36→21:17)
[2018-09-21] MEDS: LACTOBACILLUS RHAMNOSUS GG 1 CAPSULE. PO SCH ×2 (09:36→21:17)
[2018-09-21] MEDS: traMADol 50 MG TABLET PO PRN ×2 (09:36→21:17)
[2018-09-21 11:00] VITALS: BP 125/85
[2018-09-21 11:29] LABS: % ATYL 1 % (0-0); % BANDS 6 % (0-9); % LYMPHS 27 % (24-48); % MONOS 11 % (0-10); % MYELOS 3 % (0-0); % SEGS 52 % (35-66); NUCLEATED RBC 1; PLT ESTIMATE DECREASED (ADEQUATE)
--- NOTE | 2018-09-21 11:52 | PDOC ---
PROGRESS NOTES Chief Complaint Chief Complaint Post-op cystoscopy Right Ureterolithiasis Right Hydronephrosis Sepsis - gram negative bacteremia Gestational diabetes Tubal ligation Transaminitis DOLLY - vasomotor nephropathy present on admission Thrombocytopenia Acute cholecystitis History of Present Illness History of Present Illness Having pain immediately relieved by morphine. LFTs up more today. RUQ US consistent with acute cholecystitis. HIDA scan negative. Bilirubin up despite having BM. Final sensitivities to e. coli in urine and blood are back, changed to rocephin, 2nd dose today. WBC up today. Pt is eating and talkative, has ice on her abdomen. She really does not wish for surgery again, but is amenable to it if necessary. CONOR RN Reviewed pt's chart Vitals Vitals Vital Signs Date Time Temp Pulse Resp B/P (MAP) Pulse Ox O2 Delivery O2 Flow Rate FiO2 09/21/18 11:00 98.4 85 18 125/85 (98) 96 Room Air 98.4 Physical Exam Physical Exam GENERAL: Propped up in bed, alert, looks better HEENT: Pupils equally round. Oral cavity pink. NECK: Supple. LUNGS: Crackles at the base HEART: S1 and S2, regular ABDOMEN: Obese, soft, RUQ tender BACK: mild right CVAT. EXTREMITIES: No gross edema or cyanosis. SKIN: Warm to touch. No signs of rash. NEUROLOGIC: Alert, answering questions appropriately. PIV General: Alert, Cooperative, No acute distress Heart: Regular rate, Normal S1, Normal S2 Lungs: Clear Abdomen: Normal bowel sounds, Soft Extremities: No clubbing, No cyanosis Skin: No rashes, No breakdown Labs LABS Laboratory Tests Test 09/21/18 05:55 White Blood Count 16.6 x10^3/uL (4.0-11.0) Red Blood Count 4.44 x10^6/uL (3.50-5.40) Hemoglobin 12.4 g/dL (12.0-15.5) Hematocrit 36.9 % (36.0-47.0) Mean Corpuscular Volume 83 fL (79-100) Mean Corpuscular Hemoglobin 28 pg (25-35) Mean Corpuscular Hemoglobin Concent 34 g/dL (31-37) Red Cell Distribution Width 15.8 % (11.5-14.5) Platelet Count 112 x10^3/uL (140-400) Neutrophils (%) (Auto) 76 % (31-73) Lymphocytes (%) (Auto) 15 % (24-48) Monocytes (%) (Auto) 7 % (0-9) Eosinophils (%) (Auto) 1 % (0-3) Basophils (%) (Auto) 1 % (0-3) Neutrophils # (Auto) 12.6 x10^3/uL (1.8-7.7) Lymphocytes # (Auto) 2.6 x10^3/uL (1.0-4.8) Monocytes # (Auto) 1.2 x10^3/uL (0.0-1.1) Eosinophils # (Auto) 0.2 x10^3/uL (0.0-0.7) Basophils # (Auto) 0.1 x10^3/uL (0.0-0.2) Segmented Neutrophils % 52 % (35-66) Band Neutrophils % 6 % (0-9) Lymphocytes % 27 % (24-48) Atypical Lymphocytes % (Manual) 1 % (0-0) Monocytes % 11 % (0-10) Myelocytes % 3 % (0-0) Nucleated Red Blood Cells 1 Platelet Estimate Decreased (ADEQUATE) Sodium Level 139 mmol/L (136-145) Potassium Level 3.4 mmol/L (3.5-5.1) Chloride Level 102 mmol/L (98-107) Carbon Dioxide Level 28 mmol/L (21-32) Anion Gap 9 (6-14) Blood Urea Nitrogen 12 mg/dL (7-20) Creatinine 0.7 mg/dL (0.6-1.0) Estimated GFR (Cockcroft-Gault) 94.7 Glucose Level 116 mg/dL (70-99) Calcium Level 8.5 mg/dL (8.5-10.1) Total Bilirubin 2.1 mg/dL (0.2-1.0) Direct Bilirubin 1.2 mg/dL (0.0-0.2) Aspartate Amino Transf (AST/SGOT) 300 U/L (15-37) Alanine Aminotransferase (ALT/SGPT) 400 U/L (14-59) Alkaline Phosphatase 412 U/L (46-116) Total Protein 7.0 g/dL (6.4-8.2) Albumin 2.1 g/dL (3.4-5.0) Comment Review of Relevant I have reviewed the following items chidi (where applicable) has been applied. Labs Laboratory Tests Test 09/20/18 05:20 09/21/18 05:55 White Blood Count 14.5 x10^3/uL (4.0-11.0) 16.6 x10^3/uL (4.0-11.0) Red Blood Count 4.00 x10^6/uL (3.50-5.40) 4.44 x10^6/uL (3.50-5.40) Hemoglobin 11.3 g/dL (12.0-15.5) 12.4 g/dL (12.0-15.5) Hematocrit 32.8 % (36.0-47.0) 36.9 % (36.0-47.0) Mean Corpuscular Volume 82 fL (79-100) 83 fL (79-100) Mean Corpuscular Hemoglobin 28 pg (25-35) 28 pg (25-35) Mean Corpuscular Hemoglobin Concent 34 g/dL (31-37) 34 g/dL (31-37) Red Cell Distribution Width 15.5 % (11.5-14.5) 15.8 % (11.5-14.5) Platelet Count 89 x10^3/uL (140-400) 112 x10^3/uL (140-400) Neutrophils (%) (Auto) 69 % (31-73) 76 % (31-73) Lymphocytes (%) (Auto) 20 % (24-48) 15 % (24-48) Monocytes (%) (Auto) 10 % (0-9) 7 % (0-9) Eosinophils (%) (Auto) 1 % (0-3) 1 % (0-3) Basophils (%) (Auto) 0 % (0-3) 1 % (0-3) Neutrophils # (Auto) 9.9 x10^3/uL (1.8-7.7) 12.6 x10^3/uL (1.8-7.7) Lymphocytes # (Auto) 2.9 x10^3/uL (1.0-4.8) 2.6 x10^3/uL (1.0-4.8) Monocytes # (Auto) 1.5 x10^3/uL (0.0-1.1) 1.2 x10^3/uL (0.0-1.1) Eosinophils # (Auto) 0.1 x10^3/uL (0.0-0.7) 0.2 x10^3/uL (0.0-0.7) Basophils # (Auto) 0.0 x10^3/uL (0.0-0.2) 0.1 x10^3/uL (0.0-0.2) Segmented Neutrophils % 58 % (35-66) 52 % (35-66) Band Neutrophils % 2 % (0-9) 6 % (0-9) Lymphocytes % 27 % (24-48) 27 % (24-48) Monocytes % 11 % (0-10) 11 % (0-10) Eosinophils % 1 % (0-5) Basophils % 1 % (0-3) Platelet Estimate Decreased (ADEQUATE) Decreased (ADEQUATE) Sodium Level 138 mmol/L (136-145) 139 mmol/L (136-145) Potassium Level 3.0 mmol/L (3.5-5.1) 3.4 mmol/L (3.5-5.1) Chloride Level 101 mmol/L (98-107) 102 mmol/L (98-107) Carbon Dioxide Level 26 mmol/L (21-32) 28 mmol/L (21-32) Anion Gap 11 (6-14) 9 (6-14) Blood Urea Nitrogen 22 mg/dL (7-20) 12 mg/dL (7-20) Creatinine 0.8 mg/dL (0.6-1.0) 0.7 mg/dL (0.6-1.0) Estimated GFR (Cockcroft-Gault) 81.2 94.7 Glucose Level 101 mg/dL (70-99) 116 mg/dL (70-99) Calcium Level 8.1 mg/dL (8.5-10.1) 8.5 mg/dL (8.5-10.1) Magnesium Level 1.7 mg/dL (1.8-2.4) Total Bilirubin 1.7 mg/dL (0.2-1.0) 2.1 mg/dL (0.2-1.0) Direct Bilirubin 1.1 mg/dL (0.0-0.2) 1.2 mg/dL (0.0-0.2) Aspartate Amino Transf (AST/SGOT) 481 U/L (15-37) 300 U/L (15-37) Alanine Aminotransferase (ALT/SGPT) 501 U/L (14-59) 400 U/L (14-59) Alkaline Phosphatase 398 U/L (46-116) 412 U/L (46-116) Total Protein 6.3 g/dL (6.4-8.2) 7.0 g/dL (6.4-8.2) Albumin 2.0 g/dL (3.4-5.0) 2.1 g/dL (3.4-5.0) Atypical Lymphocytes % (Manual) 1 % (0-0) Myelocytes % 3 % (0-0) Nucleated Red Blood Cells 1 Laboratory Tests Test 09/21/18 05:55 White Blood Count 16.6 x10^3/uL (4.0-11.0) Red Blood Count 4.44 x10^6/uL (3.50-5.40) Hemoglobin 12.4 g/dL (12.0-15.5) Hematocrit 36.9 % (36.0-47.0) Mean Corpuscular Volume 83 fL (79-100) Mean Corpuscular Hemoglobin 28 pg (25-35) Mean Corpuscular Hemoglobin Concent 34 g/dL (31-37) Red Cell Distribution Width 15.8 % (11.5-14.5) Platelet Count 112 x10^3/uL (140-400) Neutrophils (%) (Auto) 76 % (31-73) Lymphocytes (%) (Auto) 15 % (24-48) Monocytes (%) (Auto) 7 % (0-9) Eosinophils (%) (Auto) 1 % (0-3) Basophils (%) (Auto) 1 % (0-3) Neutrophils # (Auto) 12.6 x10^3/uL (1.8-7.7) Lymphocytes # (Auto) 2.6 x10^3/uL (1.0-4.8) Monocytes # (Auto) 1.2 x10^3/uL (0.0-1.1) Eosinophils # (Auto) 0.2 x10^3/uL (0.0-0.7) Basophils # (Auto) 0.1 x10^3/uL (0.0-0.2) Segmented Neutrophils % 52 % (35-66) Band Neutrophils % 6 % (0-9) Lymphocytes % 27 % (24-48) Atypical Lymphocytes % (Manual) 1 % (0-0) Monocytes % 11 % (0-10) Myelocytes % 3 % (0-0) Nucleated Red Blood Cells 1 Platelet Estimate Decreased (ADEQUATE) Sodium Level 139 mmol/L (136-145) Potassium Level 3.4 mmol/L (3.5-5.1) Chloride Level 102 mmol/L (98-107) Carbon Dioxide Level 28 mmol/L (21-32) Anion Gap 9 (6-14) Blood Urea Nitrogen 12 mg/dL (7-20) Creatinine 0.7 mg/dL (0.6-1.0) Estimated GFR (Cockcroft-Gault) 94.7 Glucose Level 116 mg/dL (70-99) Calcium Level 8.5 mg/dL (8.5-10.1) Total Bilirubin 2.1 mg/dL (0.2-1.0) Direct Bilirubin 1.2 mg/dL (0.0-0.2) Aspartate Amino Transf (AST/SGOT) 300 U/L (15-37) Alanine Aminotransferase (ALT/SGPT) 400 U/L (14-59) Alkaline Phosphatase 412 U/L (46-116) Total Protein 7.0 g/dL (6.4-8.2) Albumin 2.1 g/dL (3.4-5.0) Microbiology 09/16/18 Urine Culture - Final, Complete 09/16/18 Urine Culture Result 1 (CYNTHIA) - Final, Complete 09/16/18 Antimicrobic Susceptibility - Final, Complete 09/16/18 Blood Culture - Preliminary, Resulted NO GROWTH AFTER 4 DAYS Medications Current Medications Sodium Chloride 1,000 ml @ 1,000 mls/hr 1X ONCE IV Last administered on 09/16/18at 20:20; Start 09/16/18 at 20:15; Stop 09/16/18 at 21:14; Status DC Sodium Chloride 1,000 ml @ 1,000 mls/hr 1X ONCE IV Last administered on 09/16/18at 20:20; Start 09/16/18 at 20:15; Stop 09/16/18 at 21:14; Status DC Acetaminophen (Tylenol) 1,000 mg 1X ONCE PO Last administered on 09/16/18 20:25; Start 09/16/18 at 20:15; Stop 09/16/18 at 20:16; Status DC Fentanyl Citrate (Fentanyl 2ml Vial) 50 mcg 1X ONCE IV Last administered on 09/16/18 20:25; Start 09/16/18 at 20:15; Stop 09/16/18 at 20:16; Status DC Ceftriaxone Sodium (Rocephin) 1 gm 1X ONCE IVP Last administered on 09/16/18 20:25; Start 09/16/18 at 20:15; Stop 09/16/18 at 20:16; Status DC Sodium Chloride 1,000 ml @ 1,560 mls/hr Q39M IV Last administered on 09/16/18 21:39; Start 09/16/18 at 20:45; Stop 09/16/18 at 21:45; Status DC Iohexol (Omnipaque 350 Mg/ml) 75 ml 1X ONCE IV Last administered on 09/16/18 21:04; Start 09/16/18 at 20:45; Stop 09/16/18 at 20:46; Status DC Info (CONTRAST GIVEN -- Rx MONITORING) 1 each PRN DAILY PRN MC SEE COMMENTS; Start 09/16/18 at 20:45; Stop 09/18/18 at 20:44; Status DC Fentanyl Citrate (Fentanyl 2ml Vial) 50 mcg 1X ONCE IV Last administered on 09/16/18at 21:27; Start 09/16/18 at 21:30; Stop 09/16/18 at 21:31; Status DC Sodium Chloride 1,000 ml @ 150 mls/hr Q6H40M IV Last administered on 09/17/18at 04:52; Start 09/16/18 at 22:00; Stop 09/17/18 at 15:00; Status DC Sevoflurane (Ultane) 30 ml STK-MED ONCE IH ; Start 09/16/18 at 22:57; Stop 09/16/18 at 22:58; Status DC Propofol 20 ml @ As Directed STK-MED ONCE IV ; Start 09/16/18 at 22:58; Stop 09/16/18 at 22:59; Status DC Lidocaine HCl (Lidocaine Pf 2% Vial) 5 ml STK-MED ONCE .ROUTE ; Start 09/16/18 at 22:58; Stop 09/16/18 at 22:59; Status DC Dexamethasone Sodium Phosphate (Decadron) 4 mg STK-MED ONCE .ROUTE ; Start 09/16/18 at 22:58; Stop 09/16/18 at 22:59; Status DC Ketorolac Tromethamine (Toradol For Or Only) 30 mg STK-MED ONCE INJ ; Start 09/16/18 at 22:58; Stop 09/16/18 at 22:59; Status DC Ondansetron HCl (Zofran) 4 mg STK-MED ONCE .ROUTE ; Start 09/16/18 at 22:58; Stop 09/16/18 at 22:59; Status DC Ephedrine Sulfate (ePHEDrine PF IN SALINE SYRINGE) 50 mg STK-MED ONCE IV ; Start 09/16/18 at 23:23; Stop 09/16/18 at 23:24; Status DC Phenylephrine HCl (PHENYLEPHRINE in 0.9% NACL PF) 1 mg STK-MED ONCE IV ; Start 09/16/18 at 23:23; Stop 09/16/18 at 23:24; Status DC Iohexol (Omnipaque 300 Mg/ml) 50 ml STK-MED ONCE .ROUTE Last administered on 09/16/18at 23:50; Start 09/16/18 at 22:23; Stop 09/16/18 at 23:23; Status DC Albumin Human 500 ml @ As Directed STK-MED ONCE IV ; Start 09/16/18 at 23:43; Stop 09/16/18 at 23:44; Status DC Vasopressin (Vasostrict) 20 unit STK-MED ONCE .ROUTE ; Start 09/16/18 at 23:48; Stop 09/16/18 at 23:49; Status DC Albumin Human 500 ml @ 500 mls/hr 1X ONCE IV Last administered on 09/17/18at 01:00; Start 09/17/18 at 01:00; Stop 09/17/18 at 01:59; Status DC Albumin Human 500 ml @ 125 mls/hr 1X ONCE IV ; Start 09/17/18 at 00:45; Stop 09/17/18 at 04:44; Status UNV Ondansetron HCl (Zofran) 4 mg PRN Q6HRS PRN IV NAUSEA/VOMITING; Start 09/17/18 at 01:00; Stop 09/17/18 at 10:40; Status DC Fentanyl Citrate (Fentanyl 2ml Vial) 25 mcg PRN Q5MIN PRN IV MILD PAIN 1-3; Start 09/17/18 at 01:00; Stop 09/17/18 at 10:40; Status DC Fentanyl Citrate (Fentanyl 2ml Vial) 50 mcg PRN Q5MIN PRN IV MODERATE TO SEVERE PAIN; Start 09/17/18 at 01:00; Stop 09/17/18 at 10:40; Status DC Morphine Sulfate (Morphine Sulfate) 1 mg PRN Q10MIN PRN IV SEVERE PAIN 7-10; Start 09/17/18 at 01:00; Stop 09/17/18 at 10:40; Status DC Ringer's Solution 1,000 ml @ 30 mls/hr Q24H IV ; Start 09/17/18 at 00:57; Stop 09/17/18 at 10:40; Status DC Lidocaine HCl (Xylocaine-Mpf 1% 2ml Vial) 2 ml PRN 1X PRN ID PRIOR TO IV START; Start 09/17/18 at 01:00; Stop 09/17/18 at 10:40; Status DC Hydromorphone HCl (Dilaudid) 0.5 mg PRN Q10MIN PRN IV SEV PAIN, Second choice; Start 09/17/18 at 01:00; Stop 09/17/18 at 10:40; Status DC Prochlorperazine Edisylate (Compazine) 5 mg PACU PRN PRN IV NAUSEA, MRX1; Start 09/17/18 at 01:00; Stop 09/17/18 at 10:40; Status DC Norepinephrine Bitartrate 250 ml @ 20.757 mls/ hr CONT PRN IV SEE I/O RECORD Last administered on 09/17/18at 14:59; Start 09/17/18 at 02:00; Stop 09/18/18 at 17:41; Status DC Acetaminophen (Tylenol) 650 mg PRN Q6HRS PRN PO MIGRAINE HEADACHE Last administered on 09/17/18at 02:31; Start 09/17/18 at 02:00 Morphine Sulfate (Morphine Sulfate) 1 mg PRN Q2HR PRN IV MODERATE PAIN 4-6 Last administered on 09/19/18at 09:23; Start 09/17/18 at 02:00 Morphine Sulfate (Morphine Sulfate) 2 mg PRN Q2HR PRN IV SEVERE PAIN 7-10 Last administered on 09/19/18 15:51; Start 09/17/18 at 02:00 Meropenem 500 mg/ Sodium Chloride 50 ml @ 100 mls/hr Q6HRS IV Last administered on 09/19/18 14:05; Start 09/17/18 at 10:00; Stop 09/19/18 at 15:27; Status DC Sodium Bicarbonate (Sodium Bicarb Adult 8.4% Syr) 100 meq 1X ONCE IV Last administered on 09/17/18 12:54; Start 09/17/18 at 13:30; Stop 09/17/18 at 13:31; Status DC Lactobacillus Rhamnosus (Culturelle) 1 cap BID PO Last administered on 09/21/18 09:36; Start 09/17/18 at 21:00 Sodium Bicarbonate 150 meq/Dextrose 1,150 ml @ 150 mls/hr CONT IV ; Start 09/17/18 at 14:00; Status UNV Sodium Bicarbonate 150 meq/Dextrose 1,150 ml @ 75 mls/hr [id number] IV Last administered on 09/18/18 10:00; Start 09/17/18 at 15:00; Stop 09/18/18 at 18:32; Status DC Sodium Chloride 1,000 ml @ 75 mls/hr [id number] IV Last administered on 09/19/18 09:23; Start 09/18/18 at 18:30 Tramadol HCl (Ultram) 50 mg PRN Q6HRS PRN PO PAIN Last administered on 09/21/18 09:36; Start 09/19/18 at 13:45 Cefepime HCl (Maxipime) 2 gm Q8HRS IVP Last administered on 09/20/18 13:26; Start 09/19/18 at 22:00; Stop 09/20/18 at 16:17; Status DC Albuterol/ Ipratropium (Duoneb) 3 ml PRN QID PRN NEB WHEEZES Last administered on 09/19/18 21:21; Start 09/19/18 at 20:45 Potassium Chloride/Water 100 ml @ 100 mls/hr Q1H IV Last administered on 09/20/18 10:57; Start 09/20/18 at 09:30; Stop 09/20/18 at 11:29; Status DC Potassium Chloride (Klor-Con) 40 meq 1X ONCE PO Last administered on 09/20/18 13:26; Start 09/20/18 at 09:30; Stop 09/20/18 at 09:31; Status DC Magnesium Sulfate/ Dextrose 100 ml @ 25 mls/hr 1X ONCE IV Last administered on 09/20/18 13:26; Start 09/20/18 at 11:00; Stop 09/20/18 at 14:59; Status DC Lactulose (Lactulose) 20 gm BID PO Last administered on 09/21/18at 09:36; Start 09/20/18 at 10:45 Ceftriaxone Sodium (Rocephin) 2 gm Q24H IVP Last administered on 09/20/18at 17:28; Start 09/20/18 at 17:00 Active Scripts Active Levaquin (Levofloxacin) 500 Mg Tablet 500 Mg PO DAILY Reported Tramadol Hcl 50 Mg Tablet 1 Tab PO PRN Q6HRS Vitals/I & O Vital Sign - Last 24 Hours 09/20/18 09/20/18 09/20/18 09/20/18 15:00 19:00 20:00 20:13 Temp 98.2 97.7 98.2 97.7 Pulse 80 89 Resp 18 18 B/P (MAP) 137/95 (109) 158/101 (120) Pulse Ox 93 95 O2 Delivery Room Air Room Air Room Air Room Air 09/20/18 09/20/18 09/21/18 09/21/18 21:14 22:47 02:54 07:00 Temp 99.3 98.9 98.4 99.3 98.9 98.4 Pulse 92 85 82 Resp 18 18 18 B/P (MAP) 155/101 (119) 145/100 (115) 148/101 (117) Pulse Ox 97 96 95 O2 Delivery Room Air Room Air Room Air Room Air 09/21/18 09/21/18 09/21/18 09/21/18 08:00 09:36 10:54 11:00 Temp 98.4 98.4 Pulse 85 Resp 18 18 18 B/P (MAP) 125/85 (98) Pulse Ox 96 O2 Delivery Room Air Room Air Room Air Room Air Intake and Output 09/20/18 09/20/18 09/21/18 14:59 22:59 06:59 Intake Total 240 ml Balance 240 ml CURTIS DUNBAR MD Sep 21, 2018 11:52
--- NOTE | 2018-09-21 12:11 | PDOC ---
JONATHAN HUANG GAME PROGRAMMER 09/21/18 1211: SUBJECTIVE Subjective Pt doing well this am. She passed her voiding trial and his not having any problems today OBJECTIVE Objective Physical Exam: General appearance: Alert and Oriented Head: Normocephalic, without obvious abnormality Eyes: conjunctivae/corneas clear. PERRL, EOM's intact. Fundi benign Back: No CVA pain on testing Lungs: Regular respirations, non labored breathing Abdomen: soft, non-tender with palpation. . No masses, no organomegaly Pelvic: deferred Vital Signs Vital Signs Date Time Temp Pulse Resp B/P (MAP) Pulse Ox O2 Delivery O2 Flow Rate FiO2 09/21/18 11:00 98.4 85 18 125/85 (98) 96 Room Air 98.4 09/21/18 10:54 18 Room Air 09/21/18 09:36 18 Room Air 09/21/18 08:00 Room Air 09/21/18 07:00 98.4 82 18 148/101 (117) 95 Room Air 98.4 09/21/18 02:54 98.9 85 18 145/100 (115) 96 Room Air 98.9 09/20/18 22:47 99.3 92 18 155/101 (119) 97 Room Air 99.3 09/20/18 21:14 Room Air 09/20/18 20:13 Room Air 09/20/18 20:00 Room Air 09/20/18 19:00 97.7 89 18 158/101 (120) 95 Room Air 97.7 09/20/18 15:00 98.2 80 18 137/95 (109) 93 Room Air 98.2 I & O Intake and Output 09/21/18 06:59 Intake Total 240 ml Balance 240 ml Intake Oral 240 ml # Voids 4 # Bowel Movements 1 PHYSICAL EXAM Physical Exam Physical Exam: General appearance: Alert and Oriented Head: Normocephalic, without obvious abnormality Eyes: conjunctivae/corneas clear. PERRL, EOM's intact. Fundi benign Back: No CVA pain on testing Lungs: Regular respirations, non labored breathing Abdomen: soft, non-tender with palpation. . No masses, no organomegaly Pelvic: deferred ASSESSMENT/PLAN Assessment/Plan Patient passed her voiding trial, leave forde out and encourage voiding. We are currently working to get her on the schedule for a URS with either Dr. Savage or Dr. Cee of [facility] before she discharges home. Dr. Figueroa to round on patient over the weekend. COMMENT Lab Laboratory Tests Test 09/21/18 05:55 White Blood Count 16.6 x10^3/uL (4.0-11.0) Red Blood Count 4.44 x10^6/uL (3.50-5.40) Hemoglobin 12.4 g/dL (12.0-15.5) Hematocrit 36.9 % (36.0-47.0) Mean Corpuscular Volume 83 fL (79-100) Mean Corpuscular Hemoglobin 28 pg (25-35) Mean Corpuscular Hemoglobin Concent 34 g/dL (31-37) Red Cell Distribution Width 15.8 % (11.5-14.5) Platelet Count 112 x10^3/uL (140-400) Neutrophils (%) (Auto) 76 % (31-73) Lymphocytes (%) (Auto) 15 % (24-48) Monocytes (%) (Auto) 7 % (0-9) Eosinophils (%) (Auto) 1 % (0-3) Basophils (%) (Auto) 1 % (0-3) Neutrophils # (Auto) 12.6 x10^3/uL (1.8-7.7) Lymphocytes # (Auto) 2.6 x10^3/uL (1.0-4.8) Monocytes # (Auto) 1.2 x10^3/uL (0.0-1.1) Eosinophils # (Auto) 0.2 x10^3/uL (0.0-0.7) Basophils # (Auto) 0.1 x10^3/uL (0.0-0.2) Segmented Neutrophils % 52 % (35-66) Band Neutrophils % 6 % (0-9) Lymphocytes % 27 % (24-48) Atypical Lymphocytes % (Manual) 1 % (0-0) Monocytes % 11 % (0-10) Myelocytes % 3 % (0-0) Nucleated Red Blood Cells 1 Platelet Estimate Decreased (ADEQUATE) Sodium Level 139 mmol/L (136-145) Potassium Level 3.4 mmol/L (3.5-5.1) Chloride Level 102 mmol/L (98-107) Carbon Dioxide Level 28 mmol/L (21-32) Anion Gap 9 (6-14) Blood Urea Nitrogen 12 mg/dL (7-20) Creatinine 0.7 mg/dL (0.6-1.0) Estimated GFR (Cockcroft-Gault) 94.7 Glucose Level 116 mg/dL (70-99) Calcium Level 8.5 mg/dL (8.5-10.1) Total Bilirubin 2.1 mg/dL (0.2-1.0) Direct Bilirubin 1.2 mg/dL (0.0-0.2) Aspartate Amino Transf (AST/SGOT) 300 U/L (15-37) Alanine Aminotransferase (ALT/SGPT) 400 U/L (14-59) Alkaline Phosphatase 412 U/L (46-116) Total Protein 7.0 g/dL (6.4-8.2) Albumin 2.1 g/dL (3.4-5.0) CARMEN SAVAGE MD 09/23/18 1223: ASSESSMENT/PLAN Assessment/Plan Agree with assessment and plan. JONATHAN HUANG APRN Sep 21, 2018 12:11 CARMEN SAVAGE MD Sep 23, 2018 12:23
[2018-09-21] MEDS ORDERED: POTASSIUM CHLORIDE 20 MEQ TABLET.ER. PO ONE (12:15)
--- NOTE | 2018-09-21 12:36 | PDOC ---
Subjective: Subjective: Better. Eating okay. Right-sided pain before urinating this morning. Asks to go home. Objective: Vital Signs: Vital Signs Date Time Temp Pulse Resp B/P (MAP) Pulse Ox O2 Delivery O2 Flow Rate FiO2 09/21/18 11:00 98.4 85 18 125/85 (98) 96 Room Air 98.4 Labs: Laboratory Tests Test 09/21/18 05:55 White Blood Count 16.6 x10^3/uL Red Blood Count 4.44 x10^6/uL Hemoglobin 12.4 g/dL Hematocrit 36.9 % Mean Corpuscular Volume 83 fL Mean Corpuscular Hemoglobin 28 pg Mean Corpuscular Hemoglobin Concent 34 g/dL Red Cell Distribution Width 15.8 % Platelet Count 112 x10^3/uL Neutrophils (%) (Auto) 76 % Lymphocytes (%) (Auto) 15 % Monocytes (%) (Auto) 7 % Eosinophils (%) (Auto) 1 % Basophils (%) (Auto) 1 % Neutrophils # (Auto) 12.6 x10^3/uL Lymphocytes # (Auto) 2.6 x10^3/uL Monocytes # (Auto) 1.2 x10^3/uL Eosinophils # (Auto) 0.2 x10^3/uL Basophils # (Auto) 0.1 x10^3/uL Segmented Neutrophils % 52 % Band Neutrophils % 6 % Lymphocytes % 27 % Atypical Lymphocytes % (Manual) 1 % Monocytes % 11 % Myelocytes % 3 % Nucleated Red Blood Cells 1 Platelet Estimate Decreased Sodium Level 139 mmol/L Potassium Level 3.4 mmol/L Chloride Level 102 mmol/L Carbon Dioxide Level 28 mmol/L Anion Gap 9 Blood Urea Nitrogen 12 mg/dL Creatinine 0.7 mg/dL Estimated GFR (Cockcroft-Gault) 94.7 Glucose Level 116 mg/dL Calcium Level 8.5 mg/dL Total Bilirubin 2.1 mg/dL Direct Bilirubin 1.2 mg/dL Aspartate Amino Transf (AST/SGOT) 300 U/L Alanine Aminotransferase (ALT/SGPT) 400 U/L Alkaline Phosphatase 412 U/L Total Protein 7.0 g/dL Albumin 2.1 g/dL Imaging: HIDA 09/21 IMPRESSION: No scintigraphic evidence of cystic duct obstruction. PE: GEN: NAD - was sleeping LUNGS: CTAB HEART: RRR ABD: soft, mild RUQ tenderness around to right flank NEURO/PSYCH: A & O �3 A/P: Sepsis/E coli, s/p ureteral stent Abnormal LFTs (bili and Alk Phos worse), leukocytosis Hepatic steatosis, gallstones, CBD 6mm - no cystic duct obstruction on HIDA -- Surgery consult pending, will review w/ Dr. Ruelas. Tolerating PO w/ improving right-sided pain. MARTÍNEZ KILGORE Sep 21, 2018 12:36
--- NOTE | 2018-09-21 13:05 | NUR ---
Dr. Rodriguez's office Nanci called with order from Eve Rivers APRN for ureteroscopy on Monday09/24/18 at 1pm. Nursing Interior Decorator Analisa notified and surgery Nanci. See free text nursing order. Patient verb. understanding POC.
[2018-09-21 15:00] VITALS: BP 127/78
--- NOTE | 2018-09-21 15:43 | PDOC ---
Infectious Disease Note Subjective Subjective Feeling good today Walking some in the room, mostly back and forth to the bathroom Denies F/C/S/N/V/Dizziness ROS ROS per HPI Vital Sign Vital Signs Vital Signs Date Time Temp Pulse Resp B/P (MAP) Pulse Ox O2 Delivery O2 Flow Rate FiO2 09/21/18 11:00 98.4 85 18 125/85 (98) 96 Room Air 98.4 Physical Exam PHYSICAL EXAM GENERAL: Propped up in bed, alert, NAD HEENT: Pupils equally round. Oral cavity pink. NECK: Supple. LUNGS: Clear HEART: S1 and S2, regular ABDOMEN: Obese, soft, RUQ tender EXTREMITIES: No gross edema or cyanosis. SKIN: Warm to touch. No signs of rash. NEUROLOGIC: Alert, answering questions appropriately. PIV Labs Lab Laboratory Tests Test 09/21/18 05:55 White Blood Count 16.6 x10^3/uL (4.0-11.0) Red Blood Count 4.44 x10^6/uL (3.50-5.40) Hemoglobin 12.4 g/dL (12.0-15.5) Hematocrit 36.9 % (36.0-47.0) Mean Corpuscular Volume 83 fL (79-100) Mean Corpuscular Hemoglobin 28 pg (25-35) Mean Corpuscular Hemoglobin Concent 34 g/dL (31-37) Red Cell Distribution Width 15.8 % (11.5-14.5) Platelet Count 112 x10^3/uL (140-400) Neutrophils (%) (Auto) 76 % (31-73) Lymphocytes (%) (Auto) 15 % (24-48) Monocytes (%) (Auto) 7 % (0-9) Eosinophils (%) (Auto) 1 % (0-3) Basophils (%) (Auto) 1 % (0-3) Neutrophils # (Auto) 12.6 x10^3/uL (1.8-7.7) Lymphocytes # (Auto) 2.6 x10^3/uL (1.0-4.8) Monocytes # (Auto) 1.2 x10^3/uL (0.0-1.1) Eosinophils # (Auto) 0.2 x10^3/uL (0.0-0.7) Basophils # (Auto) 0.1 x10^3/uL (0.0-0.2) Segmented Neutrophils % 52 % (35-66) Band Neutrophils % 6 % (0-9) Lymphocytes % 27 % (24-48) Atypical Lymphocytes % (Manual) 1 % (0-0) Monocytes % 11 % (0-10) Myelocytes % 3 % (0-0) Nucleated Red Blood Cells 1 Platelet Estimate Decreased (ADEQUATE) Sodium Level 139 mmol/L (136-145) Potassium Level 3.4 mmol/L (3.5-5.1) Chloride Level 102 mmol/L (98-107) Carbon Dioxide Level 28 mmol/L (21-32) Anion Gap 9 (6-14) Blood Urea Nitrogen 12 mg/dL (7-20) Creatinine 0.7 mg/dL (0.6-1.0) Estimated GFR (Cockcroft-Gault) 94.7 Glucose Level 116 mg/dL (70-99) Calcium Level 8.5 mg/dL (8.5-10.1) Total Bilirubin 2.1 mg/dL (0.2-1.0) Direct Bilirubin 1.2 mg/dL (0.0-0.2) Aspartate Amino Transf (AST/SGOT) 300 U/L (15-37) Alanine Aminotransferase (ALT/SGPT) 400 U/L (14-59) Alkaline Phosphatase 412 U/L (46-116) Total Protein 7.0 g/dL (6.4-8.2) Albumin 2.1 g/dL (3.4-5.0) HIDA scan No scintigraphic evidence of cystic duct obstruction. Micro 09/16. BLD CULT RESULT 1 Final Gram negative rods Gram negative rods Antibiotic RSLT#1 Amoxicillin/Clavulanic Acid S =4 Ampicillin S =8 Cefepime S<=0.12 Ceftriaxone S<=0.25 Cefuroxime I =8 Ciprofloxacin S<=0.25 Ertapenem S<=0.12 Gentamicin S<=1 Imipenem S<=0.25 Levofloxacin S<=0.12 Meropenem S<=0.25 Piperacillin/Tazobactam S<=4 Tetracycline S =2 Tobramycin S<=1 09/16. URINE CULTURE RES 1 Final Mixed urogenital nasrin Greater than 100,000 colony forming units per mL 09/16. URINE CULTURE RES 1 Preliminary Escherichia coli 10,000-25,000 colony forming units per mL Antibiotic RSLT#1 Amoxicillin/Clavulanic Acid S =4 Ampicillin S =8 Cefepime S<=0.12 Ceftriaxone S<=0.25 Cefuroxime S =4 Ciprofloxacin S<=0.25 Ertapenem S<=0.12 Gentamicin S<=1 Imipenem S<=0.25 Levofloxacin S<=0.12 Meropenem S<=0.25 Nitrofurantoin S<=16 Piperacillin/Tazobactam S<=4 Tetracycline S =2 Tobramycin S<=1 Trimethoprim/Sulfa S<=20 Objective Assessment E. coli bacteremia with septic shock requiring vasopressor support, 09/16 - now off pressors Transaminitis - worse ? Meropenem, d/c. some better Acute gallstone cholecystitis on US. HIDA neg Pyelonephritis. E. coli in urine, 09/16 Leukopenia - now leukocytosis - s/p steroids. Ureteral calculi with hydronephrosis s/p emergent right stent placement, 09/16 Lactic acidosis DOLLY - improved Severe hepatic steatosis Obesity h/o E. coli (gracia-S) Plan Plan of Care Continue Rocephin Off Cefepime (09/19) Off meropenem since 09/19 with increased LFTs Probiotics ? Fluid overload Surgical eval CBC in am D/w Dr. Franks Attending Co-Sign Attending Co-Sign The patient was seen and interviewed as well as examined at the bedside. The chart was reviewed. The case was discussed. Agree with the plan of care. WILLIAM WISE APRN Sep 21, 2018 15:43 SILVANO ANDREW MD Sep 21, 2018 15:49
[2018-09-21] MEDS: cefTRIAXone IV Push 2 GM VIAL. IVP SCH (16:38)
--- NOTE | 2018-09-21 16:54 | PDOC2 ---
CONSULT Date of Consult Date of Consult DATE: 09/21/18 TIME: 16:49 Reason for Consult Reason for Consult: elevated LFT's with gallstones Referring Physician Referring Physician: CLAY Identification/Chief Complaint Chief Complaint RUQ pain Source Source: Chart review, Patient History of Present Illness Reason for Visit: Emi is an obese 38 yo female with cholelithiasis, some GB wall thickening, elevated LFT's and is s/p placement for a right sided ureteral stent. Past Medical History Cardiovascular: No pertinent hx Pulmonary: No pertinent hx GI: No pertinent hx Heme/Onc: No pertinent hx Hepatobiliary: No pertinent hx Psych: No pertinent hx Rheumatologic: No pertinent hx Infectious disease: No pertinent hx Renal/: No pertinent hx Endocrine: No pertinent hx Past Surgical History Past Surgical History: Family History Family History: Family History Unknown Social History No ALCOHOL: occassional Drugs: None Current Medications Current Medications Current Medications Sodium Chloride 1,000 ml @ 1,000 mls/hr 1X ONCE IV Last administered on 09/16/18at 20:20; Start 09/16/18 at 20:15; Stop 09/16/18 at 21:14; Status DC Sodium Chloride 1,000 ml @ 1,000 mls/hr 1X ONCE IV Last administered on 09/16/18at 20:20; Start 09/16/18 at 20:15; Stop 09/16/18 at 21:14; Status DC Acetaminophen (Tylenol) 1,000 mg 1X ONCE PO Last administered on 09/16/18at 20:25; Start 09/16/18 at 20:15; Stop 09/16/18 at 20:16; Status DC Fentanyl Citrate (Fentanyl 2ml Vial) 50 mcg 1X ONCE IV Last administered on 09/16/18at 20:25; Start 09/16/18 at 20:15; Stop 09/16/18 at 20:16; Status DC Ceftriaxone Sodium (Rocephin) 1 gm 1X ONCE IVP Last administered on 09/16/18 20:25; Start 09/16/18 at 20:15; Stop 09/16/18 at 20:16; Status DC Sodium Chloride 1,000 ml @ 1,560 mls/hr Q39M IV Last administered on 09/16/18at 21:39; Start 09/16/18 at 20:45; Stop 09/16/18 at 21:45; Status DC Iohexol (Omnipaque 350 Mg/ml) 75 ml 1X ONCE IV Last administered on 09/16/18at 21:04; Start 09/16/18 at 20:45; Stop 09/16/18 at 20:46; Status DC Info (CONTRAST GIVEN -- Rx MONITORING) 1 each PRN DAILY PRN MC SEE COMMENTS; Start 09/16/18 at 20:45; Stop 09/18/18 at 20:44; Status DC Fentanyl Citrate (Fentanyl 2ml Vial) 50 mcg 1X ONCE IV Last administered on 09/16/18at 21:27; Start 09/16/18 at 21:30; Stop 09/16/18 at 21:31; Status DC Sodium Chloride 1,000 ml @ 150 mls/hr Q6H40M IV Last administered on 09/17/18at 04:52; Start 09/16/18 at 22:00; Stop 09/17/18 at 15:00; Status DC Sevoflurane (Ultane) 30 ml STK-MED ONCE IH ; Start 09/16/18 at 22:57; Stop 09/16/18 at 22:58; Status DC Propofol 20 ml @ As Directed STK-MED ONCE IV ; Start 09/16/18 at 22:58; Stop 09/16/18 at 22:59; Status DC Lidocaine HCl (Lidocaine Pf 2% Vial) 5 ml STK-MED ONCE .ROUTE ; Start 09/16/18 at 22:58; Stop 09/16/18 at 22:59; Status DC Dexamethasone Sodium Phosphate (Decadron) 4 mg STK-MED ONCE .ROUTE ; Start 09/16/18 at 22:58; Stop 09/16/18 at 22:59; Status DC Ketorolac Tromethamine (Toradol For Or Only) 30 mg STK-MED ONCE INJ ; Start 09/16/18 at 22:58; Stop 09/16/18 at 22:59; Status DC Ondansetron HCl (Zofran) 4 mg STK-MED ONCE .ROUTE ; Start 09/16/18 at 22:58; Stop 09/16/18 at 22:59; Status DC Ephedrine Sulfate (ePHEDrine PF IN SALINE SYRINGE) 50 mg STK-MED ONCE IV ; Start 09/16/18 at 23:23; Stop 09/16/18 at 23:24; Status DC Phenylephrine HCl (PHENYLEPHRINE in 0.9% NACL PF) 1 mg STK-MED ONCE IV ; Start 09/16/18 at 23:23; Stop 09/16/18 at 23:24; Status DC Iohexol (Omnipaque 300 Mg/ml) 50 ml STK-MED ONCE .ROUTE Last administered on 09/16/18at 23:50; Start 09/16/18 at 22:23; Stop 09/16/18 at 23:23; Status DC Albumin Human 500 ml @ As Directed STK-MED ONCE IV ; Start 09/16/18 at 23:43; Stop 09/16/18 at 23:44; Status DC Vasopressin (Vasostrict) 20 unit STK-MED ONCE .ROUTE ; Start 09/16/18 at 23:48; Stop 09/16/18 at 23:49; Status DC Albumin Human 500 ml @ 500 mls/hr 1X ONCE IV Last administered on 09/17/18at 01:00; Start 09/17/18 at 01:00; Stop 09/17/18 at 01:59; Status DC Albumin Human 500 ml @ 125 mls/hr 1X ONCE IV ; Start 09/17/18 at 00:45; Stop 09/17/18 at 04:44; Status UNV Ondansetron HCl (Zofran) 4 mg PRN Q6HRS PRN IV NAUSEA/VOMITING; Start 09/17/18 at 01:00; Stop 09/17/18 at 10:40; Status DC Fentanyl Citrate (Fentanyl 2ml Vial) 25 mcg PRN Q5MIN PRN IV MILD PAIN 1-3; Start 09/17/18 at 01:00; Stop 09/17/18 at 10:40; Status DC Fentanyl Citrate (Fentanyl 2ml Vial) 50 mcg PRN Q5MIN PRN IV MODERATE TO SEVERE PAIN; Start 09/17/18 at 01:00; Stop 09/17/18 at 10:40; Status DC Morphine Sulfate (Morphine Sulfate) 1 mg PRN Q10MIN PRN IV SEVERE PAIN 7-10; Start 09/17/18 at 01:00; Stop 09/17/18 at 10:40; Status DC Ringer's Solution 1,000 ml @ 30 mls/hr Q24H IV ; Start 09/17/18 at 00:57; Stop 09/17/18 at 10:40; Status DC Lidocaine HCl (Xylocaine-Mpf 1% 2ml Vial) 2 ml PRN 1X PRN ID PRIOR TO IV START; Start 09/17/18 at 01:00; Stop 09/17/18 at 10:40; Status DC Hydromorphone HCl (Dilaudid) 0.5 mg PRN Q10MIN PRN IV SEV PAIN, Second choice; Start 09/17/18 at 01:00; Stop 09/17/18 at 10:40; Status DC Prochlorperazine Edisylate (Compazine) 5 mg PACU PRN PRN IV NAUSEA, MRX1; Start 09/17/18 at 01:00; Stop 09/17/18 at 10:40; Status DC Norepinephrine Bitartrate 250 ml @ 20.757 mls/ hr CONT PRN IV SEE I/O RECORD Last administered on 09/17/18at 14:59; Start 09/17/18 at 02:00; Stop 09/18/18 at 17:41; Status DC Acetaminophen (Tylenol) 650 mg PRN Q6HRS PRN PO MIGRAINE HEADACHE Last administered on 09/17/18 02:31; Start 09/17/18 at 02:00 Morphine Sulfate (Morphine Sulfate) 1 mg PRN Q2HR PRN IV MODERATE PAIN 4-6 Last administered on 09/19/18at 09:23; Start 09/17/18 at 02:00 Morphine Sulfate (Morphine Sulfate) 2 mg PRN Q2HR PRN IV SEVERE PAIN 7-10 Last administered on 09/19/18at 15:51; Start 09/17/18 at 02:00 Meropenem 500 mg/ Sodium Chloride 50 ml @ 100 mls/hr Q6HRS IV Last administered on 09/19/18at 14:05; Start 09/17/18 at 10:00; Stop 09/19/18 at 15:27; Status DC Sodium Bicarbonate (Sodium Bicarb Adult 8.4% Syr) 100 meq 1X ONCE IV Last a dministered on 09/17/18at 12:54; Start 09/17/18 at 13:30; Stop 09/17/18 at 13:31; Status DC Lactobacillus Rhamnosus (Culturelle) 1 cap BID PO Last administered on 09/21/18at 09:36; Start 09/17/18 at 21:00 Sodium Bicarbonate 150 meq/Dextrose 1,150 ml @ 150 mls/hr CONT IV ; Start 09/17/18 at 14:00; Status UNV Sodium Bicarbonate 150 meq/Dextrose 1,150 ml @ 75 mls/hr [id number] IV Last admi nistered on 09/18/18at 10:00; Start 09/17/18 at 15:00; Stop 09/18/18 at 18:32; Status DC Sodium Chloride 1,000 ml @ 75 mls/hr [id number] IV Last administered on 09/19/18 09:23; Start 09/18/18 at 18:30; Stop 09/21/18 at 11:51; Status DC Tramadol HCl (Ultram) 50 mg PRN Q6HRS PRN PO PAIN Last administered on 09/21/18 09:36; Start 09/19/18 at 13:45 Cefepime HCl (Maxipime) 2 gm Q8HRS IVP Last administered on 09/20/18 13:26; Start 09/19/18 at 22:00; Stop 09/20/18 at 16:17; Status DC Albuterol/ Ipratropium (Duoneb) 3 ml PRN QID PRN NEB WHEEZES Last administered on 09/19/18 21:21; Start 09/19/18 at 20:45 Potassium Chloride/Water 100 ml @ 100 mls/hr Q1H IV Last administered on 09/20/18 10:57; Start 09/20/18 at 09:30; Stop 09/20/18 at 11:29; Status DC Potassium Chloride (Klor-Con) 40 meq 1X ONCE PO Last administered on 09/20/18 13:26; Start 09/20/18 at 09:30; Stop 09/20/18 at 09:31; Status DC Magnesium Sulfate/ Dextrose 100 ml @ 25 mls/hr 1X ONCE IV Last administered on 09/20/18 13:26; Start 09/20/18 at 11:00; Stop 09/20/18 at 14:59; Status DC Lactulose (Lactulose) 20 gm BID PO Last administered on 09/21/18 09:36; Start 09/20/18 at 10:45 Ceftriaxone Sodium (Rocephin) 2 gm Q24H IVP Last administered on 09/21/18at 16:48; Start 09/20/18 at 17:00 Potassium Chloride (Klor-Con) 40 meq 1X ONCE PO Last administered on 09/21/18at 12:07; Start 09/21/18 at 12:15; Stop 09/21/18 at 12:16; Status DC Ondansetron HCl (Zofran) 4 mg PRN Q6HRS PRN IV NAUSEA/VOMITING; Start 09/24/18 at 07:00; Stop 09/25/18 at 06:59 Fentanyl Citrate (Fentanyl 2ml Vial) 25 mcg PRN Q5MIN PRN IV MILD PAIN 1-3; Start 09/24/18 at 07:00; Stop 09/25/18 at 06:59 Fentanyl Citrate (Fentanyl 2ml Vial) 50 mcg PRN Q5MIN PRN IV MODERATE TO SEVERE PAIN; Start 09/24/18 at 07:00; Stop 09/25/18 at 06:59 Morphine Sulfate (Morphine Sulfate) 1 mg PRN Q10MIN PRN IV SEVERE PAIN 7-10; Start 09/24/18 at 07:00; Stop 09/25/18 at 06:59 Ringer's Solution 1,000 ml @ 30 mls/hr Q24H IV ; Start 09/24/18 at 07:00; Stop 09/24/18 at 18:59 Lidocaine HCl (Xylocaine-Mpf 1% 2ml Vial) 2 ml PRN 1X PRN ID PRIOR TO IV START; Start 09/24/18 at 07:00; Stop 09/25/18 at 06:59 Hydromorphone HCl (Dilaudid) 0.5 mg PRN Q10MIN PRN IV SEV PAIN, Second choice; Start 09/24/18 at 07:00; Stop 09/25/18 at 06:59 Prochlorperazine Edisylate (Compazine) 5 mg PACU PRN PRN IV NAUSEA, MRX1; Start 09/24/18 at 07:00; Stop 09/25/18 at 06:59 Active Scripts Active Levaquin (Levofloxacin) 500 Mg Tablet 500 Mg PO DAILY Reported Tramadol Hcl 50 Mg Tablet 1 Tab PO PRN Q6HRS Allergies Allergies: Coded Allergies: No Known Drug Allergies (Unverified , 11/28/13) ROS Gastrointestinal: Yes Abdominal Pain Genitourinary: YES Flank Pain Physical Exam General: Alert, No acute distress HEENT: Atraumatic Lungs: Normal air movement Abdomen: Soft Vitals VITALS Vital Signs Date Time Temp Pulse Resp B/P (MAP) Pulse Ox O2 Delivery O2 Flow Rate FiO2 09/21/18 15:00 98.5 84 18 127/78 (94) 93 Room Air 98.5 Labs Labs Laboratory Tests Test 09/20/18 05:20 09/21/18 05:55 White Blood Count 14.5 x10^3/uL (4.0-11.0) 16.6 x10^3/uL (4.0-11.0) Red Blood Count 4.00 x10^6/uL (3.50-5.40) 4.44 x10^6/uL (3.50-5.40) Hemoglobin 11.3 g/dL (12.0-15.5) 12.4 g/dL (12.0-15.5) Hematocrit 32.8 % (36.0-47.0) 36.9 % (36.0-47.0) Mean Corpuscular Volume 82 fL (79-100) 83 fL (79-100) Mean Corpuscular Hemoglobin 28 pg (25-35) 28 pg (25-35) Mean Corpuscular Hemoglobin Concent 34 g/dL (31-37) 34 g/dL (31-37) Red Cell Distribution Width 15.5 % (11.5-14.5) 15.8 % (11.5-14.5) Platelet Count 89 x10^3/uL (140-400) 112 x10^3/uL (140-400) Neutrophils (%) (Auto) 69 % (31-73) 76 % (31-73) Lymphocytes (%) (Auto) 20 % (24-48) 15 % (24-48) Monocytes (%) (Auto) 10 % (0-9) 7 % (0-9) Eosinophils (%) (Auto) 1 % (0-3) 1 % (0-3) Basophils (%) (Auto) 0 % (0-3) 1 % (0-3) Neutrophils # (Auto) 9.9 x10^3/uL (1.8-7.7) 12.6 x10^3/uL (1.8-7.7) Lymphocytes # (Auto) 2.9 x10^3/uL (1.0-4.8) 2.6 x10^3/uL (1.0-4.8) Monocytes # (Auto) 1.5 x10^3/uL (0.0-1.1) 1.2 x10^3/uL (0.0-1.1) Eosinophils # (Auto) 0.1 x10^3/uL (0.0-0.7) 0.2 x10^3/uL (0.0-0.7) Basophils # (Auto) 0.0 x10^3/uL (0.0-0.2) 0.1 x10^3/uL (0.0-0.2) Segmented Neutrophils % 58 % (35-66) 52 % (35-66) Band Neutrophils % 2 % (0-9) 6 % (0-9) Lymphocytes % 27 % (24-48) 27 % (24-48) Monocytes % 11 % (0-10) 11 % (0-10) Eosinophils % 1 % (0-5) Basophils % 1 % (0-3) Platelet Estimate Decreased (ADEQUATE) Decreased (ADEQUATE) Sodium Level 138 mmol/L (136-145) 139 mmol/L (136-145) Potassium Level 3.0 mmol/L (3.5-5.1) 3.4 mmol/L (3.5-5.1) Chloride Level 101 mmol/L (98-107) 102 mmol/L (98-107) Carbon Dioxide Level 26 mmol/L (21-32) 28 mmol/L (21-32) Anion Gap 11 (6-14) 9 (6-14) Blood Urea Nitrogen 22 mg/dL (7-20) 12 mg/dL (7-20) Creatinine 0.8 mg/dL (0.6-1.0) 0.7 mg/dL (0.6-1.0) Estimated GFR (Cockcroft-Gault) 81.2 94.7 Glucose Level 101 mg/dL (70-99) 116 mg/dL (70-99) Calcium Level 8.1 mg/dL (8.5-10.1) 8.5 mg/dL (8.5-10.1) Magnesium Level 1.7 mg/dL (1.8-2.4) Total Bilirubin 1.7 mg/dL (0.2-1.0) 2.1 mg/dL (0.2-1.0) Direct Bilirubin 1.1 mg/dL (0.0-0.2) 1.2 mg/dL (0.0-0.2) Aspartate Amino Transf (AST/SGOT) 481 U/L (15-37) 300 U/L (15-37) Alanine Aminotransferase (ALT/SGPT) 501 U/L (14-59) 400 U/L (14-59) Alkaline Phosphatase 398 U/L (46-116) 412 U/L (46-116) Total Protein 6.3 g/dL (6.4-8.2) 7.0 g/dL (6.4-8.2) Albumin 2.0 g/dL (3.4-5.0) 2.1 g/dL (3.4-5.0) Atypical Lymphocytes % (Manual) 1 % (0-0) Myelocytes % 3 % (0-0) Nucleated Red Blood Cells 1 Laboratory Tests Test 09/21/18 05:55 White Blood Count 16.6 x10^3/uL (4.0-11.0) Red Blood Count 4.44 x10^6/uL (3.50-5.40) Hemoglobin 12.4 g/dL (12.0-15.5) Hematocrit 36.9 % (36.0-47.0) Mean Corpuscular Volume 83 fL (79-100) Mean Corpuscular Hemoglobin 28 pg (25-35) Mean Corpuscular Hemoglobin Concent 34 g/dL (31-37) Red Cell Distribution Width 15.8 % (11.5-14.5) Platelet Count 112 x10^3/uL (140-400) Neutrophils (%) (Auto) 76 % (31-73) Lymphocytes (%) (Auto) 15 % (24-48) Monocytes (%) (Auto) 7 % (0-9) Eosinophils (%) (Auto) 1 % (0-3) Basophils (%) (Auto) 1 % (0-3) Neutrophils # (Auto) 12.6 x10^3/uL (1.8-7.7) Lymphocytes # (Auto) 2.6 x10^3/uL (1.0-4.8) Monocytes # (Auto) 1.2 x10^3/uL (0.0-1.1) Eosinophils # (Auto) 0.2 x10^3/uL (0.0-0.7) Basophils # (Auto) 0.1 x10^3/uL (0.0-0.2) Segmented Neutrophils % 52 % (35-66) Band Neutrophils % 6 % (0-9) Lymphocytes % 27 % (24-48) Atypical Lymphocytes % (Manual) 1 % (0-0) Monocytes % 11 % (0-10) Myelocytes % 3 % (0-0) Nucleated Red Blood Cells 1 Platelet Estimate Decreased (ADEQUATE) Sodium Level 139 mmol/L (136-145) Potassium Level 3.4 mmol/L (3.5-5.1) Chloride Level 102 mmol/L (98-107) Carbon Dioxide Level 28 mmol/L (21-32) Anion Gap 9 (6-14) Blood Urea Nitrogen 12 mg/dL (7-20) Creatinine 0.7 mg/dL (0.6-1.0) Estimated GFR (Cockcroft-Gault) 94.7 Glucose Level 116 mg/dL (70-99) Calcium Level 8.5 mg/dL (8.5-10.1) Total Bilirubin 2.1 mg/dL (0.2-1.0) Direct Bilirubin 1.2 mg/dL (0.0-0.2) Aspartate Amino Transf (AST/SGOT) 300 U/L (15-37) Alanine Aminotransferase (ALT/SGPT) 400 U/L (14-59) Alkaline Phosphatase 412 U/L (46-116) Total Protein 7.0 g/dL (6.4-8.2) Albumin 2.1 g/dL (3.4-5.0) Images Images CT, US and HIDA are reviewed Assessment/Plan Assessment/Plan right sided pain renal stone cholelithiasis with elevated LFT's discussed cholecystectomy versus continued medical management she will take this under advisement will follow with you Thanks for consult LUIS SUH MD Sep 21, 2018 16:54
[2018-09-21 19:00] VITALS: BP 149/85
[2018-09-21 23:00] VITALS: BP 134/86
[2018-09-21] MEDS ORDERED: ONDANSETRON PF 4 MG/2 ML VIAL. IV PRN (23:00)
[2018-09-22 03:00] VITALS: BP 108/66
[2018-09-22 05:43] LABS: BASO # 0.1 x10^3/uL (0.0-0.2); BASO % 1 % (0-3); EOS # 0.2 x10^3/uL (0.0-0.7); EOS % 2 % (0-3); HEMATOCRIT 36.2 % (36.0-47.0); HEMOGLOBIN 12.3 g/dL (12.0-15.5); LYMPH # 2.8 x10^3/uL (1.0-4.8); LYMPH % 17 % (24-48); MEAN CORPUSCULAR HEMOGLOBIN 28 pg (25-35); MEAN CORPUSCULAR HGB CONC 34 g/dL (31-37); MEAN CORPUSCULAR VOLUME 83 fL (79-100); MONO # 0.9 x10^3/uL (0.0-1.1); MONO % 5 % (0-9); NEUT # 12.4 x10^3/uL (1.8-7.7); NEUT % 76 % (31-73); PLATELET COUNT 139 x10^3/uL (140-400); RED BLOOD COUNT 4.37 x10^6/uL (3.50-5.40); RED CELL DISTRIBUTION WIDTH 15.7 % (11.5-14.5); WHITE BLOOD COUNT 16.4 x10^3/uL (4.0-11.0)
[2018-09-22 05:52] LABS: CALCIUM 8.5 mg/dL (8.5-10.1); CREATININE 0.7 mg/dL (0.6-1.0); GFR 94.7; POTASSIUM 3.5 mmol/L (3.5-5.1)
[2018-09-22 05:58] LABS: ALBUMIN 2.3 g/dL (3.4-5.0); DIRECT BILIRUBIN 0.8 mg/dL (0.0-0.2); TOTAL BILIRUBIN 1.4 mg/dL (0.2-1.0); TOTAL PROTEIN 6.5 g/dL (6.4-8.2)
[2018-09-22 07:00] VITALS: BP 122/72
[2018-09-22] MEDS: LACTOBACILLUS RHAMNOSUS GG 1 CAPSULE. PO SCH (08:35)
[2018-09-22] MEDS: LACTULOSE 20 GM/30 ML SOLUTION. PO SCH (08:35)
[2018-09-22] MEDS: traMADol 50 MG TABLET PO PRN (08:36)
--- NOTE | 2018-09-22 08:53 | PDOC ---
PROGRESS NOTES Chief Complaint Chief Complaint Post-op cystoscopy Right Ureterolithiasis Right Hydronephrosis Sepsis - gram negative bacteremia Gestational diabetes Tubal ligation Transaminitis DOLLY - vasomotor nephropathy present on admission Thrombocytopenia Acute cholecystitis History of Present Illness History of Present Illness 38-year-old female who was driving back from [place] 2 days ago when she developed a sudden onset of back pain and need to urinate. She went to the bathroom and noticed blood in her urine. She took ibuprofen for pain relief. The following day, she continued to have pain and developed shaking chills, subjective fevers, body aches and shortness of air. On arrival to the ER, she had a fever of 103. She became hypotensive requiring vasopressor support. She had a WBC count of 2.2, lactic acid 4.4 and procalcitonin level of 43.40. A CT abdomen/pelvis revealed a 5 mm right distal ureter calculus with mild right hydronephrosis and perinephric stranding as well as a 3 mm right renal calculi. She underwent an urgent cystoscopy with right ureter stent placement. She received one time dose of ceftriaxone in the ER. ID was consulted and found to have e. coli UTI and bacteremia with broad sensitivities. LFTs were up post-operatively. RUQ US consistent with acute cholecystitis. HIDA scan negative. Bilirubin up despite having BM. Final sensitivities to e. coli in urine and blood are back, changed to rocephin, 2nd dose today. WBC up today. Pt is eating and talkative, has ice on her abdomen. She really does not wish for surgery again, but is amenable to it if necessary. CONOR RN Reviewed pt's chart Vitals Vitals Vital Signs Date Time Temp Pulse Resp B/P (MAP) Pulse Ox O2 Delivery O2 Flow Rate FiO2 09/22/18 08:36 Room Air 09/22/18 07:00 99.0 68 16 122/72 (89) 95 99.0 Physical Exam Physical Exam GENERAL: Propped up in bed, alert, NAD HEENT: Pupils equally round. Oral cavity pink. NECK: Supple. LUNGS: Clear HEART: S1 and S2, regular ABDOMEN: Obese, soft, RUQ tender EXTREMITIES: No gross edema or cyanosis. SKIN: Warm to touch. No signs of rash. NEUROLOGIC: Alert, answering questions appropriately. PIV General: Alert, No acute distress Heart: Regular rate, Normal S1, Normal S2 Lungs: Clear Abdomen: Soft Extremities: No clubbing, No cyanosis Skin: No rashes, No breakdown Labs LABS Laboratory Tests Test 09/22/18 04:40 White Blood Count 16.4 x10^3/uL (4.0-11.0) Red Blood Count 4.37 x10^6/uL (3.50-5.40) Hemoglobin 12.3 g/dL (12.0-15.5) Hematocrit 36.2 % (36.0-47.0) Mean Corpuscular Volume 83 fL (79-100) Mean Corpuscular Hemoglobin 28 pg (25-35) Mean Corpuscular Hemoglobin Concent 34 g/dL (31-37) Red Cell Distribution Width 15.7 % (11.5-14.5) Platelet Count 139 x10^3/uL (140-400) Neutrophils (%) (Auto) 76 % (31-73) Lymphocytes (%) (Auto) 17 % (24-48) Monocytes (%) (Auto) 5 % (0-9) Eosinophils (%) (Auto) 2 % (0-3) Basophils (%) (Auto) 1 % (0-3) Neutrophils # (Auto) 12.4 x10^3/uL (1.8-7.7) Lymphocytes # (Auto) 2.8 x10^3/uL (1.0-4.8) Monocytes # (Auto) 0.9 x10^3/uL (0.0-1.1) Eosinophils # (Auto) 0.2 x10^3/uL (0.0-0.7) Basophils # (Auto) 0.1 x10^3/uL (0.0-0.2) Sodium Level 133 mmol/L (136-145) Potassium Level 3.5 mmol/L (3.5-5.1) Chloride Level 97 mmol/L (98-107) Carbon Dioxide Level 28 mmol/L (21-32) Anion Gap 8 (6-14) Blood Urea Nitrogen 10 mg/dL (7-20) Creatinine 0.7 mg/dL (0.6-1.0) Estimated GFR (Cockcroft-Gault) 94.7 Glucose Level 133 mg/dL (70-99) Calcium Level 8.5 mg/dL (8.5-10.1) Total Bilirubin 1.4 mg/dL (0.2-1.0) Direct Bilirubin 0.8 mg/dL (0.0-0.2) Aspartate Amino Transf (AST/SGOT) 176 U/L (15-37) Alanine Aminotransferase (ALT/SGPT) 314 U/L (14-59) Alkaline Phosphatase 354 U/L (46-116) Total Protein 6.5 g/dL (6.4-8.2) Albumin 2.3 g/dL (3.4-5.0) Comment Review of Relevant I have reviewed the following items chidi (where applicable) has been applied. Labs Laboratory Tests Test 09/21/18 05:55 09/22/18 04:40 White Blood Count 16.6 x10^3/uL (4.0-11.0) 16.4 x10^3/uL (4.0-11.0) Red Blood Count 4.44 x10^6/uL (3.50-5.40) 4.37 x10^6/uL (3.50-5.40) Hemoglobin 12.4 g/dL (12.0-15.5) 12.3 g/dL (12.0-15.5) Hematocrit 36.9 % (36.0-47.0) 36.2 % (36.0-47.0) Mean Corpuscular Volume 83 fL (79-100) 83 fL (79-100) Mean Corpuscular Hemoglobin 28 pg (25-35) 28 pg (25-35) Mean Corpuscular Hemoglobin Concent 34 g/dL (31-37) 34 g/dL (31-37) Red Cell Distribution Width 15.8 % (11.5-14.5) 15.7 % (11.5-14.5) Platelet Count 112 x10^3/uL (140-400) 139 x10^3/uL (140-400) Neutrophils (%) (Auto) 76 % (31-73) 76 % (31-73) Lymphocytes (%) (Auto) 15 % (24-48) 17 % (24-48) Monocytes (%) (Auto) 7 % (0-9) 5 % (0-9) Eosinophils (%) (Auto) 1 % (0-3) 2 % (0-3) Basophils (%) (Auto) 1 % (0-3) 1 % (0-3) Neutrophils # (Auto) 12.6 x10^3/uL (1.8-7.7) 12.4 x10^3/uL (1.8-7.7) Lymphocytes # (Auto) 2.6 x10^3/uL (1.0-4.8) 2.8 x10^3/uL (1.0-4.8) Monocytes # (Auto) 1.2 x10^3/uL (0.0-1.1) 0.9 x10^3/uL (0.0-1.1) Eosinophils # (Auto) 0.2 x10^3/uL (0.0-0.7) 0.2 x10^3/uL (0.0-0.7) Basophils # (Auto) 0.1 x10^3/uL (0.0-0.2) 0.1 x10^3/uL (0.0-0.2) Segmented Neutrophils % 52 % (35-66) Band Neutrophils % 6 % (0-9) Lymphocytes % 27 % (24-48) Atypical Lymphocytes % (Manual) 1 % (0-0) Monocytes % 11 % (0-10) Myelocytes % 3 % (0-0) Nucleated Red Blood Cells 1 Platelet Estimate Decreased (ADEQUATE) Sodium Level 139 mmol/L (136-145) 133 mmol/L (136-145) Potassium Level 3.4 mmol/L (3.5-5.1) 3.5 mmol/L (3.5-5.1) Chloride Level 102 mmol/L (98-107) 97 mmol/L (98-107) Carbon Dioxide Level 28 mmol/L (21-32) 28 mmol/L (21-32) Anion Gap 9 (6-14) 8 (6-14) Blood Urea Nitrogen 12 mg/dL (7-20) 10 mg/dL (7-20) Creatinine 0.7 mg/dL (0.6-1.0) 0.7 mg/dL (0.6-1.0) Estimated GFR (Cockcroft-Gault) 94.7 94.7 Glucose Level 116 mg/dL (70-99) 133 mg/dL (70-99) Calcium Level 8.5 mg/dL (8.5-10.1) 8.5 mg/dL (8.5-10.1) Total Bilirubin 2.1 mg/dL (0.2-1.0) 1.4 mg/dL (0.2-1.0) Direct Bilirubin 1.2 mg/dL (0.0-0.2) 0.8 mg/dL (0.0-0.2) Aspartate Amino Transf (AST/SGOT) 300 U/L (15-37) 176 U/L (15-37) Alanine Aminotransferase (ALT/SGPT) 400 U/L (14-59) 314 U/L (14-59) Alkaline Phosphatase 412 U/L (46-116) 354 U/L (46-116) Total Protein 7.0 g/dL (6.4-8.2) 6.5 g/dL (6.4-8.2) Albumin 2.1 g/dL (3.4-5.0) 2.3 g/dL (3.4-5.0) Laboratory Tests Test 09/22/18 04:40 White Blood Count 16.4 x10^3/uL (4.0-11.0) Red Blood Count 4.37 x10^6/uL (3.50-5.40) Hemoglobin 12.3 g/dL (12.0-15.5) Hematocrit 36.2 % (36.0-47.0) Mean Corpuscular Volume 83 fL (79-100) Mean Corpuscular Hemoglobin 28 pg (25-35) Mean Corpuscular Hemoglobin Concent 34 g/dL (31-37) Red Cell Distribution Width 15.7 % (11.5-14.5) Platelet Count 139 x10^3/uL (140-400) Neutrophils (%) (Auto) 76 % (31-73) Lymphocytes (%) (Auto) 17 % (24-48) Monocytes (%) (Auto) 5 % (0-9) Eosinophils (%) (Auto) 2 % (0-3) Basophils (%) (Auto) 1 % (0-3) Neutrophils # (Auto) 12.4 x10^3/uL (1.8-7.7) Lymphocytes # (Auto) 2.8 x10^3/uL (1.0-4.8) Monocytes # (Auto) 0.9 x10^3/uL (0.0-1.1) Eosinophils # (Auto) 0.2 x10^3/uL (0.0-0.7) Basophils # (Auto) 0.1 x10^3/uL (0.0-0.2) Sodium Level 133 mmol/L (136-145) Potassium Level 3.5 mmol/L (3.5-5.1) Chloride Level 97 mmol/L (98-107) Carbon Dioxide Level 28 mmol/L (21-32) Anion Gap 8 (6-14) Blood Urea Nitrogen 10 mg/dL (7-20) Creatinine 0.7 mg/dL (0.6-1.0) Estimated GFR (Cockcroft-Gault) 94.7 Glucose Level 133 mg/dL (70-99) Calcium Level 8.5 mg/dL (8.5-10.1) Total Bilirubin 1.4 mg/dL (0.2-1.0) Direct Bilirubin 0.8 mg/dL (0.0-0.2) Aspartate Amino Transf (AST/SGOT) 176 U/L (15-37) Alanine Aminotransferase (ALT/SGPT) 314 U/L (14-59) Alkaline Phosphatase 354 U/L (46-116) Total Protein 6.5 g/dL (6.4-8.2) Albumin 2.3 g/dL (3.4-5.0) Microbiology 09/16/18 Urine Culture - Final, Complete 09/16/18 Urine Culture Result 1 (CYNTHIA) - Final, Complete 09/16/18 Antimicrobic Susceptibility - Final, Complete 09/16/18 Blood Culture - Final, Complete NO GROWTH AFTER 5 DAYS Medications Current Medications Sodium Chloride 1,000 ml @ 1,000 mls/hr 1X ONCE IV Last administered on 09/16/18at 20:20; Start 09/16/18 at 20:15; Stop 09/16/18 at 21:14; Status DC Sodium Chloride 1,000 ml @ 1,000 mls/hr 1X ONCE IV Last administered on 09/16/18at 20:20; Start 09/16/18 at 20:15; Stop 09/16/18 at 21:14; Status DC Acetaminophen (Tylenol) 1,000 mg 1X ONCE PO Last administered on 09/16/18at 20:25; Start 09/16/18 at 20:15; Stop 09/16/18 at 20:16; Status DC Fentanyl Citrate (Fentanyl 2ml Vial) 50 mcg 1X ONCE IV Last administered on 09/16/18at 20:25; Start 09/16/18 at 20:15; Stop 09/16/18 at 20:16; Status DC Ceftriaxone Sodium (Rocephin) 1 gm 1X ONCE IVP Last administered on 09/16/18at 20:25; Start 09/16/18 at 20:15; Stop 09/16/18 at 20:16; Status DC Sodium Chloride 1,000 ml @ 1,560 mls/hr Q39M IV Last administered on 09/16/18at 21:39; Start 09/16/18 at 20:45; Stop 09/16/18 at 21:45; Status DC Iohexol (Omnipaque 350 Mg/ml) 75 ml 1X ONCE IV Last administered on 09/16/18at 21:04; Start 09/16/18 at 20:45; Stop 09/16/18 at 20:46; Status DC Info (CONTRAST GIVEN -- Rx MONITORING) 1 each PRN DAILY PRN MC SEE COMMENTS; Start 09/16/18 at 20:45; Stop 09/18/18 at 20:44; Status DC Fentanyl Citrate (Fentanyl 2ml Vial) 50 mcg 1X ONCE IV Last administered on 09/16/18at 21:27; Start 09/16/18 at 21:30; Stop 09/16/18 at 21:31; Status DC Sodium Chloride 1,000 ml @ 150 mls/hr Q6H40M IV Last administered on 09/17/18at 04:52; Start 09/16/18 at 22:00; Stop 09/17/18 at 15:00; Status DC Sevoflurane (Ultane) 30 ml STK-MED ONCE IH ; Start 09/16/18 at 22:57; Stop 09/16/18 at 22:58; Status DC Propofol 20 ml @ As Directed STK-MED ONCE IV ; Start 09/16/18 at 22:58; Stop 09/16/18 at 22:59; Status DC Lidocaine HCl (Lidocaine Pf 2% Vial) 5 ml STK-MED ONCE .ROUTE ; Start 09/16/18 at 22:58; Stop 09/16/18 at 22:59; Status DC Dexamethasone Sodium Phosphate (Decadron) 4 mg STK-MED ONCE .ROUTE ; Start 09/16/18 at 22:58; Stop 09/16/18 at 22:59; Status DC Ketorolac Tromethamine (Toradol For Or Only) 30 mg STK-MED ONCE INJ ; Start 09/16/18 at 22:58; Stop 09/16/18 at 22:59; Status DC Ondansetron HCl (Zofran) 4 mg STK-MED ONCE .ROUTE ; Start 09/16/18 at 22:58; Stop 09/16/18 at 22:59; Status DC Ephedrine Sulfate (ePHEDrine PF IN SALINE SYRINGE) 50 mg STK-MED ONCE IV ; Start 09/16/18 at 23:23; Stop 09/16/18 at 23:24; Status DC Phenylephrine HCl (PHENYLEPHRINE in 0.9% NACL PF) 1 mg STK-MED ONCE IV ; Start 09/16/18 at 23:23; Stop 09/16/18 at 23:24; Status DC Iohexol (Omnipaque 300 Mg/ml) 50 ml STK-MED ONCE .ROUTE Last administered on 09/16/18at 23:50; Start 09/16/18 at 22:23; Stop 09/16/18 at 23:23; Status DC Albumin Human 500 ml @ As Directed STK-MED ONCE IV ; Start 09/16/18 at 23:43; Stop 09/16/18 at 23:44; Status DC Vasopressin (Vasostrict) 20 unit STK-MED ONCE .ROUTE ; Start 09/16/18 at 23:48; Stop 09/16/18 at 23:49; Status DC Albumin Human 500 ml @ 500 mls/hr 1X ONCE IV Last administered on 09/17/18at 01:00; Start 09/17/18 at 01:00; Stop 09/17/18 at 01:59; Status DC Albumin Human 500 ml @ 125 mls/hr 1X ONCE IV ; Start 09/17/18 at 00:45; Stop 09/17/18 at 04:44; Status UNV Ondansetron HCl (Zofran) 4 mg PRN Q6HRS PRN IV NAUSEA/VOMITING; Start 09/17/18 at 01:00; Stop 09/17/18 at 10:40; Status DC Fentanyl Citrate (Fentanyl 2ml Vial) 25 mcg PRN Q5MIN PRN IV MILD PAIN 1-3; Start 09/17/18 at 01:00; Stop 09/17/18 at 10:40; Status DC Fentanyl Citrate (Fentanyl 2ml Vial) 50 mcg PRN Q5MIN PRN IV MODERATE TO SEVERE PAIN; Start 09/17/18 at 01:00; Stop 09/17/18 at 10:40; Status DC Morphine Sulfate (Morphine Sulfate) 1 mg PRN Q10MIN PRN IV SEVERE PAIN 7-10; Start 09/17/18 at 01:00; Stop 09/17/18 at 10:40; Status DC Ringer's Solution 1,000 ml @ 30 mls/hr Q24H IV ; Start 09/17/18 at 00:57; Stop 09/17/18 at 10:40; Status DC Lidocaine HCl (Xylocaine-Mpf 1% 2ml Vial) 2 ml PRN 1X PRN ID PRIOR TO IV START; Start 09/17/18 at 01:00; Stop 09/17/18 at 10:40; Status DC Hydromorphone HCl (Dilaudid) 0.5 mg PRN Q10MIN PRN IV SEV PAIN, Second choice; Start 09/17/18 at 01:00; Stop 09/17/18 at 10:40; Status DC Prochlorperazine Edisylate (Compazine) 5 mg PACU PRN PRN IV NAUSEA, MRX1; Start 09/17/18 at 01:00; Stop 09/17/18 at 10:40; Status DC Norepinephrine Bitartrate 250 ml @ 20.757 mls/ hr CONT PRN IV SEE I/O RECORD Last administered on 09/17/18at 14:59; Start 09/17/18 at 02:00; Stop 09/18/18 at 17:41; Status DC Acetaminophen (Tylenol) 650 mg PRN Q6HRS PRN PO MIGRAINE HEADACHE Last administered on 09/17/18at 02:31; Start 09/17/18 at 02:00 Morphine Sulfate (Morphine Sulfate) 1 mg PRN Q2HR PRN IV MODERATE PAIN 4-6 Last administered on 09/19/18at 09:23; Start 09/17/18 at 02:00 Morphine Sulfate (Morphine Sulfate) 2 mg PRN Q2HR PRN IV SEVERE PAIN 7-10 Last administered on 09/19/18 15:51; Start 09/17/18 at 02:00 Meropenem 500 mg/ Sodium Chloride 50 ml @ 100 mls/hr Q6HRS IV Last administered on 09/19/18 14:05; Start 09/17/18 at 10:00; Stop 09/19/18 at 15:27; Status DC Sodium Bicarbonate (Sodium Bicarb Adult 8.4% Syr) 100 meq 1X ONCE IV Last administered on 09/17/18 12:54; Start 09/17/18 at 13:30; Stop 09/17/18 at 13:31; Status DC Lactobacillus Rhamnosus (Culturelle) 1 cap BID PO Last administered on 09/22/18 08:36; Start 09/17/18 at 21:00 Sodium Bicarbonate 150 meq/Dextrose 1,150 ml @ 150 mls/hr CONT IV ; Start 09/17/18 at 14:00; Status UNV Sodium Bicarbonate 150 meq/Dextrose 1,150 ml @ 75 mls/hr [id number] IV Last administered on 09/18/18 10:00; Start 09/17/18 at 15:00; Stop 09/18/18 at 18:32; Status DC Sodium Chloride 1,000 ml @ 75 mls/hr [id number] IV Last administered on 09/19/18 09:23; Start 09/18/18 at 18:30; Stop 09/21/18 at 11:51; Status DC Tramadol HCl (Ultram) 50 mg PRN Q6HRS PRN PO PAIN Last administered on 09/22/18 08:36; Start 09/19/18 at 13:45 Cefepime HCl (Maxipime) 2 gm Q8HRS IVP Last administered on 09/20/18 13:26; Start 09/19/18 at 22:00; Stop 09/20/18 at 16:17; Status DC Albuterol/ Ipratropium (Duoneb) 3 ml PRN QID PRN NEB WHEEZES Last administered on 09/19/18 21:21; Start 09/19/18 at 20:45 Potassium Chloride/Water 100 ml @ 100 mls/hr Q1H IV Last administered on 09/20/18 10:57; Start 09/20/18 at 09:30; Stop 09/20/18 at 11:29; Status DC Potassium Chloride (Klor-Con) 40 meq 1X ONCE PO Last administered on 09/20/18at 13:26; Start 09/20/18 at 09:30; Stop 09/20/18 at 09:31; Status DC Magnesium Sulfate/ Dextrose 100 ml @ 25 mls/hr 1X ONCE IV Last administered on 09/20/18at 13:26; Start 09/20/18 at 11:00; Stop 09/20/18 at 14:59; Status DC Lactulose (Lactulose) 20 gm BID PO Last administered on 09/22/18at 08:36; Start 09/20/18 at 10:45 Ceftriaxone Sodium (Rocephin) 2 gm Q24H IVP Last administered on 09/21/18at 16:48; Start 09/20/18 at 17:00 Potassium Chloride (Klor-Con) 40 meq 1X ONCE PO Last administered on 09/21/18at 12:07; Start 09/21/18 at 12:15; Stop 09/21/18 at 12:16; Status DC Ondansetron HCl (Zofran) 4 mg PRN Q6HRS PRN IV NAUSEA/VOMITING; Start 09/24/18 at 07:00; Stop 09/25/18 at 06:59 Fentanyl Citrate (Fentanyl 2ml Vial) 25 mcg PRN Q5MIN PRN IV MILD PAIN 1-3; Start 09/24/18 at 07:00; Stop 09/25/18 at 06:59 Fentanyl Citrate (Fentanyl 2ml Vial) 50 mcg PRN Q5MIN PRN IV MODERATE TO SEVERE PAIN; Start 09/24/18 at 07:00; Stop 09/25/18 at 06:59 Morphine Sulfate (Morphine Sulfate) 1 mg PRN Q10MIN PRN IV SEVERE PAIN 7-10; Start 09/24/18 at 07:00; Stop 09/25/18 at 06:59 Ringer's Solution 1,000 ml @ 30 mls/hr Q24H IV ; Start 09/24/18 at 07:00; Stop 09/24/18 at 18:59 Lidocaine HCl (Xylocaine-Mpf 1% 2ml Vial) 2 ml PRN 1X PRN ID PRIOR TO IV START; Start 09/24/18 at 07:00; Stop 09/25/18 at 06:59 Hydromorphone HCl (Dilaudid) 0.5 mg PRN Q10MIN PRN IV SEV PAIN, Second choice; Start 09/24/18 at 07:00; Stop 09/25/18 at 06:59 Prochlorperazine Edisylate (Compazine) 5 mg PACU PRN PRN IV NAUSEA, MRX1; Start 09/24/18 at 07:00; Stop 09/25/18 at 06:59 Ondansetron HCl (Zofran) 4 mg PRN Q4HRS PRN IV NAUSEA/VOMITING Last administered on 09/21/18at 23:03; Start 09/21/18 at 23:00 Active Scripts Active Levaquin (Levofloxacin) 500 Mg Tablet 500 Mg PO DAILY Reported Tramadol Hcl 50 Mg Tablet 1 Tab PO PRN Q6HRS Vitals/I & O Vital Sign - Last 24 Hours 09/21/18 09/21/18 09/21/18 09/21/18 09:36 10:54 11:00 15:00 Temp 98.4 98.5 98.4 98.5 Pulse 85 84 Resp 18 18 18 18 B/P (MAP) 125/85 (98) 127/78 (94) Pulse Ox 96 93 O2 Delivery Room Air Room Air Room Air Room Air 09/21/18 09/21/18 09/21/18 09/21/18 19:00 19:48 21:17 22:23 Temp 99.9 99.9 Pulse 94 Resp 18 B/P (MAP) 149/85 (106) Pulse Ox 97 97 97 O2 Delivery Room Air Room Air Room Air Room Air 09/21/18 09/22/18 09/22/18 09/22/18 23:00 03:00 07:00 08:36 Temp 99.1 98.8 99.0 99.1 98.8 99.0 Pulse 89 91 68 Resp 18 18 16 B/P (MAP) 134/86 (102) 108/66 (80) 122/72 (89) Pulse Ox 97 95 95 O2 Delivery Room Air Room Air Room Air Room Air Intake and Output 09/21/18 09/21/18 09/22/18 14:59 22:59 06:59 Intake Total 240 ml 360 ml 240 ml Balance 240 ml 360 ml 240 ml CURTIS DUNBAR MD Sep 22, 2018 08:53
[2018-09-22] MEDS ORDERED: POTASSIUM CHLORIDE 20 MEQ TABLET.ER. PO ONE (09:00)
[2018-09-22 09:24] LABS: MAGNESIUM 1.3 mg/dL (1.8-2.4); PHOSPHORUS 4.2 mg/dL (2.6-4.7)
--- NOTE | 2018-09-22 09:31 | PDOC ---
Infectious Disease Note Subjective Subjective Calvin little nauseous last night, better today Appetite good, eating well Denies abdominal pain/F/C/aches ROS ROS per HPI otherwise neg Vital Sign Vital Signs Vital Signs Date Time Temp Pulse Resp B/P (MAP) Pulse Ox O2 Delivery O2 Flow Rate FiO2 09/22/18 08:36 Room Air 09/22/18 07:00 99.0 68 16 122/72 (89) 95 99.0 Physical Exam PHYSICAL EXAM GENERAL: Propped up in bed, alert, smilinbg HEENT: Pupils equally round. Oral cavity pink. NECK: Supple. LUNGS: Clear HEART: S1 and S2, regular ABDOMEN: Obese, soft, nontender, + BS BACK: No CVAT EXTREMITIES: No gross edema or cyanosis. SKIN: Warm to touch. No signs of rash. NEUROLOGIC: Alert, answering questions appropriately. PIV Labs Lab Laboratory Tests Test 09/22/18 04:40 White Blood Count 16.4 x10^3/uL (4.0-11.0) Red Blood Count 4.37 x10^6/uL (3.50-5.40) Hemoglobin 12.3 g/dL (12.0-15.5) Hematocrit 36.2 % (36.0-47.0) Mean Corpuscular Volume 83 fL (79-100) Mean Corpuscular Hemoglobin 28 pg (25-35) Mean Corpuscular Hemoglobin Concent 34 g/dL (31-37) Red Cell Distribution Width 15.7 % (11.5-14.5) Platelet Count 139 x10^3/uL (140-400) Neutrophils (%) (Auto) 76 % (31-73) Lymphocytes (%) (Auto) 17 % (24-48) Monocytes (%) (Auto) 5 % (0-9) Eosinophils (%) (Auto) 2 % (0-3) Basophils (%) (Auto) 1 % (0-3) Neutrophils # (Auto) 12.4 x10^3/uL (1.8-7.7) Lymphocytes # (Auto) 2.8 x10^3/uL (1.0-4.8) Monocytes # (Auto) 0.9 x10^3/uL (0.0-1.1) Eosinophils # (Auto) 0.2 x10^3/uL (0.0-0.7) Basophils # (Auto) 0.1 x10^3/uL (0.0-0.2) Sodium Level 133 mmol/L (136-145) Potassium Level 3.5 mmol/L (3.5-5.1) Chloride Level 97 mmol/L (98-107) Carbon Dioxide Level 28 mmol/L (21-32) Anion Gap 8 (6-14) Blood Urea Nitrogen 10 mg/dL (7-20) Creatinine 0.7 mg/dL (0.6-1.0) Estimated GFR (Cockcroft-Gault) 94.7 Glucose Level 133 mg/dL (70-99) Calcium Level 8.5 mg/dL (8.5-10.1) Total Bilirubin 1.4 mg/dL (0.2-1.0) Direct Bilirubin 0.8 mg/dL (0.0-0.2) Aspartate Amino Transf (AST/SGOT) 176 U/L (15-37) Alanine Aminotransferase (ALT/SGPT) 314 U/L (14-59) Alkaline Phosphatase 354 U/L (46-116) Total Protein 6.5 g/dL (6.4-8.2) Albumin 2.3 g/dL (3.4-5.0) Micro 09/16. BLD CULT RESULT 1 Final Gram negative rods Gram negative rods Antibiotic RSLT#1 Amoxicillin/Clavulanic Acid S =4 Ampicillin S =8 Cefepime S<=0.12 Ceftriaxone S<=0.25 Cefuroxime I =8 Ciprofloxacin S<=0.25 Ertapenem S<=0.12 Gentamicin S<=1 Imipenem S<=0.25 Levofloxacin S<=0.12 Meropenem S<=0.25 Piperacillin/Tazobactam S<=4 Tetracycline S =2 Tobramycin S<=1 09/16. URINE CULTURE RES 1 Final Mixed urogenital nasrin Greater than 100,000 colony forming units per mL 09/16. URINE CULTURE RES 1 Preliminary Escherichia coli 10,000-25,000 colony forming units per mL Antibiotic RSLT#1 Amoxicillin/Clavulanic Acid S =4 Ampicillin S =8 Cefepime S<=0.12 Ceftriaxone S<=0.25 Cefuroxime S =4 Ciprofloxacin S<=0.25 Ertapenem S<=0.12 Gentamicin S<=1 Imipenem S<=0.25 Levofloxacin S<=0.12 Meropenem S<=0.25 Nitrofurantoin S<=16 Piperacillin/Tazobactam S<=4 Tetracycline S =2 Tobramycin S<=1 Trimethoprim/Sulfa S<=20 Objective Assessment E. coli bacteremia with septic shock requiring vasopressor support, 09/16 - now off pressors Pyelonephritis. E. coli in urine, 09/16 Transaminitis - worse ? Meropenem, d/c. slowly improving Acute gallstone cholecystitis on US. HIDA neg Leukopenia - now leukocytosis - s/p steroids. stable Ureteral calculi with hydronephrosis s/p emergent right stent placement, 09/16 Lactic acidosis DOLLY - improved Severe hepatic steatosis Obesity h/o E. coli (gracia-S) Plan Plan of Care Continue Rocephin times one now - stent to be removed 09/24 Off Cefepime (09/19) Off meropenem since 09/19 with increased LFTs Probiotics Surgical input noted. Patient wants to try medial management and avoid surgery. Home on Cipro for 7 days to start 09/23 Can F/u in ID office week of 10/01 at bedside D/w Dr. Okeefe Attending Co-Sign Attending Co-Sign The patient was seen and interviewed as well as examined at the bedside. The chart was reviewed. The case was discussed. Agree with the plan of care. WILLIAM WISE APRN Sep 22, 2018 09:31 SILVANO ANDREW MD Sep 22, 2018 14:24
--- NOTE | 2018-09-22 10:52 | PDOC ---
SURGICAL PROGRESS NOTE Subjective no new c/o at bedside Vital Signs Vital Signs Date Time Temp Pulse Resp B/P (MAP) Pulse Ox O2 Delivery O2 Flow Rate FiO2 09/22/18 09:42 Room Air 09/22/18 07:00 99.0 68 16 122/72 (89) 95 99.0 I&O Intake and Output 09/22/18 07:00 Intake Total 840 ml Balance 840 ml Intake Oral 840 ml # Voids 2 PATIENT HAS A QUEEN: No General: Alert, No acute distress Abdomen: Soft, No tenderness Labs Laboratory Tests Test 09/21/18 05:55 09/22/18 04:40 White Blood Count 16.6 x10^3/uL (4.0-11.0) 16.4 x10^3/uL (4.0-11.0) Red Blood Count 4.44 x10^6/uL (3.50-5.40) 4.37 x10^6/uL (3.50-5.40) Hemoglobin 12.4 g/dL (12.0-15.5) 12.3 g/dL (12.0-15.5) Hematocrit 36.9 % (36.0-47.0) 36.2 % (36.0-47.0) Mean Corpuscular Volume 83 fL (79-100) 83 fL (79-100) Mean Corpuscular Hemoglobin 28 pg (25-35) 28 pg (25-35) Mean Corpuscular Hemoglobin Concent 34 g/dL (31-37) 34 g/dL (31-37) Red Cell Distribution Width 15.8 % (11.5-14.5) 15.7 % (11.5-14.5) Platelet Count 112 x10^3/uL (140-400) 139 x10^3/uL (140-400) Neutrophils (%) (Auto) 76 % (31-73) 76 % (31-73) Lymphocytes (%) (Auto) 15 % (24-48) 17 % (24-48) Monocytes (%) (Auto) 7 % (0-9) 5 % (0-9) Eosinophils (%) (Auto) 1 % (0-3) 2 % (0-3) Basophils (%) (Auto) 1 % (0-3) 1 % (0-3) Neutrophils # (Auto) 12.6 x10^3/uL (1.8-7.7) 12.4 x10^3/uL (1.8-7.7) Lymphocytes # (Auto) 2.6 x10^3/uL (1.0-4.8) 2.8 x10^3/uL (1.0-4.8) Monocytes # (Auto) 1.2 x10^3/uL (0.0-1.1) 0.9 x10^3/uL (0.0-1.1) Eosinophils # (Auto) 0.2 x10^3/uL (0.0-0.7) 0.2 x10^3/uL (0.0-0.7) Basophils # (Auto) 0.1 x10^3/uL (0.0-0.2) 0.1 x10^3/uL (0.0-0.2) Segmented Neutrophils % 52 % (35-66) Band Neutrophils % 6 % (0-9) Lymphocytes % 27 % (24-48) Atypical Lymphocytes % (Manual) 1 % (0-0) Monocytes % 11 % (0-10) Myelocytes % 3 % (0-0) Nucleated Red Blood Cells 1 Platelet Estimate Decreased (ADEQUATE) Sodium Level 139 mmol/L (136-145) 133 mmol/L (136-145) Potassium Level 3.4 mmol/L (3.5-5.1) 3.5 mmol/L (3.5-5.1) Chloride Level 102 mmol/L (98-107) 97 mmol/L (98-107) Carbon Dioxide Level 28 mmol/L (21-32) 28 mmol/L (21-32) Anion Gap 9 (6-14) 8 (6-14) Blood Urea Nitrogen 12 mg/dL (7-20) 10 mg/dL (7-20) Creatinine 0.7 mg/dL (0.6-1.0) 0.7 mg/dL (0.6-1.0) Estimated GFR (Cockcroft-Gault) 94.7 94.7 Glucose Level 116 mg/dL (70-99) 133 mg/dL (70-99) Calcium Level 8.5 mg/dL (8.5-10.1) 8.5 mg/dL (8.5-10.1) Total Bilirubin 2.1 mg/dL (0.2-1.0) 1.4 mg/dL (0.2-1.0) Direct Bilirubin 1.2 mg/dL (0.0-0.2) 0.8 mg/dL (0.0-0.2) Aspartate Amino Transf (AST/SGOT) 300 U/L (15-37) 176 U/L (15-37) Alanine Aminotransferase (ALT/SGPT) 400 U/L (14-59) 314 U/L (14-59) Alkaline Phosphatase 412 U/L (46-116) 354 U/L (46-116) Total Protein 7.0 g/dL (6.4-8.2) 6.5 g/dL (6.4-8.2) Albumin 2.1 g/dL (3.4-5.0) 2.3 g/dL (3.4-5.0) Phosphorus Level 4.2 mg/dL (2.6-4.7) Magnesium Level 1.3 mg/dL (1.8-2.4) Laboratory Tests Test 09/22/18 04:40 White Blood Count 16.4 x10^3/uL (4.0-11.0) Red Blood Count 4.37 x10^6/uL (3.50-5.40) Hemoglobin 12.3 g/dL (12.0-15.5) Hematocrit 36.2 % (36.0-47.0) Mean Corpuscular Volume 83 fL (79-100) Mean Corpuscular Hemoglobin 28 pg (25-35) Mean Corpuscular Hemoglobin Concent 34 g/dL (31-37) Red Cell Distribution Width 15.7 % (11.5-14.5) Platelet Count 139 x10^3/uL (140-400) Neutrophils (%) (Auto) 76 % (31-73) Lymphocytes (%) (Auto) 17 % (24-48) Monocytes (%) (Auto) 5 % (0-9) Eosinophils (%) (Auto) 2 % (0-3) Basophils (%) (Auto) 1 % (0-3) Neutrophils # (Auto) 12.4 x10^3/uL (1.8-7.7) Lymphocytes # (Auto) 2.8 x10^3/uL (1.0-4.8) Monocytes # (Auto) 0.9 x10^3/uL (0.0-1.1) Eosinophils # (Auto) 0.2 x10^3/uL (0.0-0.7) Basophils # (Auto) 0.1 x10^3/uL (0.0-0.2) Sodium Level 133 mmol/L (136-145) Potassium Level 3.5 mmol/L (3.5-5.1) Chloride Level 97 mmol/L (98-107) Carbon Dioxide Level 28 mmol/L (21-32) Anion Gap 8 (6-14) Blood Urea Nitrogen 10 mg/dL (7-20) Creatinine 0.7 mg/dL (0.6-1.0) Estimated GFR (Cockcroft-Gault) 94.7 Glucose Level 133 mg/dL (70-99) Calcium Level 8.5 mg/dL (8.5-10.1) Phosphorus Level 4.2 mg/dL (2.6-4.7) Magnesium Level 1.3 mg/dL (1.8-2.4) Total Bilirubin 1.4 mg/dL (0.2-1.0) Direct Bilirubin 0.8 mg/dL (0.0-0.2) Aspartate Amino Transf (AST/SGOT) 176 U/L (15-37) Alanine Aminotransferase (ALT/SGPT) 314 U/L (14-59) Alkaline Phosphatase 354 U/L (46-116) Total Protein 6.5 g/dL (6.4-8.2) Albumin 2.3 g/dL (3.4-5.0) Assessment/Plan E coli bacteremia pyelo gall stones obesity hepatic steatosis Emi would like to manage her gall stones non operativel asked her to f/u in my office as needed sill sign off please call if needed Thanks LUIS SUH MD Sep 22, 2018 10:52
[2018-09-22 11:00] VITALS: BP 141/80
[2018-09-22] MEDS ORDERED: CIPR250T30 PO (14:02)
--- NOTE | 2018-09-22 14:10 | PDOC3 ---
Discharge Summary Visit Information Date of Admission: Sep 16, 2018 Date of Discharge: Sep 22, 2018 Admitting Diagnosis: Abdominal pain Final Diagnosis Pyelo Brief Hospital Course Allergies Allergies Coded Allergies Type Severity Reaction Last Updated Verified No Known Drug Allergies 11/28/13 No Vital Signs Vital Signs Date Time Temp Pulse Resp B/P (MAP) Pulse Ox O2 Delivery O2 Flow Rate FiO2 09/22/18 11:00 98.1 86 16 141/80 (100) 94 Room Air 98.1 Lab Results Laboratory Tests Test 09/21/18 05:55 09/22/18 04:40 White Blood Count 16.6 x10^3/uL (4.0-11.0) 16.4 x10^3/uL (4.0-11.0) Red Blood Count 4.44 x10^6/uL (3.50-5.40) 4.37 x10^6/uL (3.50-5.40) Hemoglobin 12.4 g/dL (12.0-15.5) 12.3 g/dL (12.0-15.5) Hematocrit 36.9 % (36.0-47.0) 36.2 % (36.0-47.0) Mean Corpuscular Volume 83 fL (79-100) 83 fL (79-100) Mean Corpuscular Hemoglobin 28 pg (25-35) 28 pg (25-35) Mean Corpuscular Hemoglobin Concent 34 g/dL (31-37) 34 g/dL (31-37) Red Cell Distribution Width 15.8 % (11.5-14.5) 15.7 % (11.5-14.5) Platelet Count 112 x10^3/uL (140-400) 139 x10^3/uL (140-400) Neutrophils (%) (Auto) 76 % (31-73) 76 % (31-73) Lymphocytes (%) (Auto) 15 % (24-48) 17 % (24-48) Monocytes (%) (Auto) 7 % (0-9) 5 % (0-9) Eosinophils (%) (Auto) 1 % (0-3) 2 % (0-3) Basophils (%) (Auto) 1 % (0-3) 1 % (0-3) Neutrophils # (Auto) 12.6 x10^3/uL (1.8-7.7) 12.4 x10^3/uL (1.8-7.7) Lymphocytes # (Auto) 2.6 x10^3/uL (1.0-4.8) 2.8 x10^3/uL (1.0-4.8) Monocytes # (Auto) 1.2 x10^3/uL (0.0-1.1) 0.9 x10^3/uL (0.0-1.1) Eosinophils # (Auto) 0.2 x10^3/uL (0.0-0.7) 0.2 x10^3/uL (0.0-0.7) Basophils # (Auto) 0.1 x10^3/uL (0.0-0.2) 0.1 x10^3/uL (0.0-0.2) Segmented Neutrophils % 52 % (35-66) Band Neutrophils % 6 % (0-9) Lymphocytes % 27 % (24-48) Atypical Lymphocytes % (Manual) 1 % (0-0) Monocytes % 11 % (0-10) Myelocytes % 3 % (0-0) Nucleated Red Blood Cells 1 Platelet Estimate Decreased (ADEQUATE) Sodium Level 139 mmol/L (136-145) 133 mmol/L (136-145) Potassium Level 3.4 mmol/L (3.5-5.1) 3.5 mmol/L (3.5-5.1) Chloride Level 102 mmol/L (98-107) 97 mmol/L (98-107) Carbon Dioxide Level 28 mmol/L (21-32) 28 mmol/L (21-32) Anion Gap 9 (6-14) 8 (6-14) Blood Urea Nitrogen 12 mg/dL (7-20) 10 mg/dL (7-20) Creatinine 0.7 mg/dL (0.6-1.0) 0.7 mg/dL (0.6-1.0) Estimated GFR (Cockcroft-Gault) 94.7 94.7 Glucose Level 116 mg/dL (70-99) 133 mg/dL (70-99) Calcium Level 8.5 mg/dL (8.5-10.1) 8.5 mg/dL (8.5-10.1) Total Bilirubin 2.1 mg/dL (0.2-1.0) 1.4 mg/dL (0.2-1.0) Direct Bilirubin 1.2 mg/dL (0.0-0.2) 0.8 mg/dL (0.0-0.2) Aspartate Amino Transf (AST/SGOT) 300 U/L (15-37) 176 U/L (15-37) Alanine Aminotransferase (ALT/SGPT) 400 U/L (14-59) 314 U/L (14-59) Alkaline Phosphatase 412 U/L (46-116) 354 U/L (46-116) Total Protein 7.0 g/dL (6.4-8.2) 6.5 g/dL (6.4-8.2) Albumin 2.1 g/dL (3.4-5.0) 2.3 g/dL (3.4-5.0) Phosphorus Level 4.2 mg/dL (2.6-4.7) Magnesium Level 1.3 mg/dL (1.8-2.4) Laboratory Tests Test 09/22/18 04:40 White Blood Count 16.4 x10^3/uL (4.0-11.0) Red Blood Count 4.37 x10^6/uL (3.50-5.40) Hemoglobin 12.3 g/dL (12.0-15.5) Hematocrit 36.2 % (36.0-47.0) Mean Corpuscular Volume 83 fL (79-100) Mean Corpuscular Hemoglobin 28 pg (25-35) Mean Corpuscular Hemoglobin Concent 34 g/dL (31-37) Red Cell Distribution Width 15.7 % (11.5-14.5) Platelet Count 139 x10^3/uL (140-400) Neutrophils (%) (Auto) 76 % (31-73) Lymphocytes (%) (Auto) 17 % (24-48) Monocytes (%) (Auto) 5 % (0-9) Eosinophils (%) (Auto) 2 % (0-3) Basophils (%) (Auto) 1 % (0-3) Neutrophils # (Auto) 12.4 x10^3/uL (1.8-7.7) Lymphocytes # (Auto) 2.8 x10^3/uL (1.0-4.8) Monocytes # (Auto) 0.9 x10^3/uL (0.0-1.1) Eosinophils # (Auto) 0.2 x10^3/uL (0.0-0.7) Basophils # (Auto) 0.1 x10^3/uL (0.0-0.2) Sodium Level 133 mmol/L (136-145) Potassium Level 3.5 mmol/L (3.5-5.1) Chloride Level 97 mmol/L (98-107) Carbon Dioxide Level 28 mmol/L (21-32) Anion Gap 8 (6-14) Blood Urea Nitrogen 10 mg/dL (7-20) Creatinine 0.7 mg/dL (0.6-1.0) Estimated GFR (Cockcroft-Gault) 94.7 Glucose Level 133 mg/dL (70-99) Calcium Level 8.5 mg/dL (8.5-10.1) Phosphorus Level 4.2 mg/dL (2.6-4.7) Magnesium Level 1.3 mg/dL (1.8-2.4) Total Bilirubin 1.4 mg/dL (0.2-1.0) Direct Bilirubin 0.8 mg/dL (0.0-0.2) Aspartate Amino Transf (AST/SGOT) 176 U/L (15-37) Alanine Aminotransferase (ALT/SGPT) 314 U/L (14-59) Alkaline Phosphatase 354 U/L (46-116) Total Protein 6.5 g/dL (6.4-8.2) Albumin 2.3 g/dL (3.4-5.0) Brief Hospital Course 38-year-old female who was driving back from [place] 2 days ago when she developed a sudden onset of back pain and need to urinate. She went to the bathroom and noticed blood in her urine. She took ibuprofen for pain relief. The following day, she continued to have pain and developed shaking chills, subjective fevers, body aches and shortness of air. On arrival to the ER, she had a fever of 103. She became hypotensive requiring vasopressor support. She had a WBC count of 2.2, lactic acid 4.4 and procalcitonin level of 43.40. A CT abdomen/pelvis revealed a 5 mm right distal ureter calculus with mild right hydronephrosis and perinephric stranding as well as a 3 mm right renal calculi. She underwent an urgent cystoscopy with right ureter stent placement. She received one time dose of ceftriaxone in the ER. ID was consulted and found to have e. coli UTI and bacteremia with broad sensitivities. LFTs were up post-operatively. RUQ US consistent with acute cholecystitis. HIDA scan negative. Bilirubin up despite having BM. Final sensitivities to e. coli in urine and blood are back, changed to rocephin, 3rd dose today. WBC up today, better than prior Pt is eating and talkative, has ice on her abdomen. She really does not wish for surgery again, but is amenable to it if necessary. Will f/u with urology on 09/24/18 for stent removal. 5 days cipro BID for e. coli infection and outpatient elective surgical f/u for GB disease. Post-op cystoscopy Right Ureterolithiasis Right Hydronephrosis Sepsis - gram negative bacteremia Gestational diabetes Tubal ligation Transaminitis DOLLY - vasomotor nephropathy present on admission Thrombocytopenia Acute cholecystitis Greater than 30 minutes spent on d/c Discharge Information Follow Up: Weeks (1) Disposition/Orders: D/C to Home Scheduled Ciprofloxacin Hcl (Cipro) 250 Mg Tablet, 1 TAB PO BID for Pyelo for 5 Days, #10 Prescribed by: CURTIS DUNBAR MD on 09/22/18 1402 Tramadol Hcl (Tramadol Hcl) 50 Mg Tablet, 1 TAB PO PRN Q6HRS, #30 (Reported) Entered as Reported by: JOHNATHAN CARNEY on 11/28/13 1917 Discontinued Medications Levofloxacin (Levaquin) 500 Mg Tablet, 500 MG PO DAILY, #10 Prescribed by: MALATHI CLIFTON MD on 03/29/15 1345 CURTIS DUNBAR MD Sep 22, 2018 14:10
[2018-09-22] MEDS ORDERED: cefTRIAXone IV Push 2 GM VIAL. IVP SCH (14:30)
[2018-09-22 15:00] VITALS: BP 128/80
[2018-09-22] MEDS ORDERED: MAGNESIUM SULFATE 4GM 100 ML IV ONE (15:00)
--- NOTE | 2018-09-22 19:22 | NUR ---
Discharge Note: CHIKA ADAMS Discharge instructions and discharge home medications reviewed with Patient and a copy given. All questions have been answered and understanding verbalized. The following instructions and handouts were given: discharge instructions, new prescriptions, education and follow up recommendations. Discontinued lines and drains: Peripheral IV discontinued intact. Patient discharged to Home or Self Care with Family Member via Wheelchair off unit by CLINICAL ASSISTANT.
[2018-09-24] MEDS ORDERED: PROCHLORPERAZINE 10 MG/2 ML VIAL. IV PRN (07:00)
[2018-09-24] MEDS ORDERED: MORPHINE SULFATE 2 MG/ML VIAL. IV PRN (07:00)
[2018-09-24] MEDS ORDERED: HYDROmorphone 2 MG/ML VIAL IV PRN (07:00)
[2018-09-24] MEDS ORDERED: IV RINGERS,LACTATED 1000ML 1,000 ML IV SCH (07:00)
[2018-09-24] MEDS ORDERED: LIDOCAINE 1% PF 2 ML VIAL. ID PRN (07:00)
[2018-09-24] MEDS ORDERED: ONDANSETRON PF 4 MG/2 ML VIAL. IV PRN (07:00)
[2018-09-24] MEDS ORDERED: fentaNYL PF VIAL 100 MCG/2 ML VIAL IV PRN ×2 (07:00)
[2018-09-24] MEDS ORDERED: HYDR-3164 PO (14:13)
[2018-09-24] MEDS ORDERED: CIPR250T30 PO (14:19)
== END 2018-09-22 19:48 | disposition home or self-care (01) | DRG 853 ==
LOC: ER 19:27 → 1 WEST ICU 21:35 → 4 NORTH 09-18 18:57 → 5 NORTH 09-19 06:43
PROVIDERS: ADMIT Internal Medicine; ATTEND Internal Medicine
PROC: BT1D1ZZ Fluoroscopy of Right Kidney, Ureter and Bladder using Low Osmolar Contrast (ICD-10-PCS; 2018-09-16)
PROC: 0T768DZ Dilation of Right Ureter with Intraluminal Device, Via Natural or Artificial Opening Endoscopic (ICD-10-PCS; principal; 2018-09-16 23:12)
DX: A41.51 Sepsis due to Escherichia coli [E. coli] (principal); N17.0 Acute kidney failure with tubular necrosis; R65.21 Severe sepsis with septic shock; E87.2 Acidosis; Z68.42 Body mass index [BMI] 45.0-49.9, adult; N13.6 Pyonephrosis; K80.00 Calculus of gallbladder with acute cholecystitis without obstruction; D69.6 Thrombocytopenia, unspecified; D72.819 Decreased white blood cell count, unspecified; E66.9 Obesity, unspecified; K76.0 Fatty (change of) liver, not elsewhere classified; Z86.32 Personal history of gestational diabetes; Z82.49 Family history of ischemic heart disease and other diseases of the circulatory system; Z83.3 Family history of diabetes mellitus; Z98.891 History of uterine scar from previous surgery; Z98.51 Tubal ligation status
CPT/HCPCS: 36415; 36600; 71045; 71275; 74018; 74176; 76000; 76705; 78226; 80047; 80048; 80053; 80076; 80307; 81001; 81025; 82805; 83605; 83690; 83735; 84100; 84145; 84484; 85007; 85025; 85610; 87040; 87077; 87086; 87186; 87205; 87641; 93005; 94640; 96361; 96374; A7015; A9537; C1769; C2617; J0171; J0692; J0696; J1100; J1885; J2001; J2185; J2270; J2370; J2405; J2704; J3010; J3475; J3480; J3490; J7030; J7620; P9045; Q9967; 99291-25; G0378

== ENCOUNTER → 2018-09-24 | Day surgery (SDC) | payer SELFPAY ==
[~2018-09-24] MED LIST changes: +CIPR250T30 PO; +DEXAMETHASONE SOD PHOS 4 MG/ML VIAL ONE; +FUROSEMIDE 40 MG/4 ML VIAL. ONE; +HYDR-3164 PO; +IV RINGERS,LACTATED 1000ML 1,000 ML IV SCH; +KETOROLAC 30 MG/ML INJ FOR OR. INJ ONE; +LIDOCAINE 2% PF 5 ML VIAL. ONE; +MIDAZOLAM HCL/PF 2 MG/2 ML VIAL. ONE; +ONDANSETRON PF 4 MG/2 ML VIAL. ONE; +PHENYLEPHRINE in 0.9% NACL PF 1 MG/10 ML SYRINGE. IV ONE; +PROPOFOL 20 ML IV ONE; +SEVOFLURANE 31 TO 60 MINUTES. IH ONE
--- NOTE | 2018-09-24 14:02 | PDOC4 ---
OPERATIVE NOTE Date: Date: Sep 24, 2018 Pre-Op Diagnosis: R distal ureteral calc Post-Op Diagnosis: same Procedure Performed: cysto, R ureteroscopy w laser, stone removal, stent placement Surgeon: Jaye Anesthesia Type: gen Blood Loss: min Specimans Obtained: stone fragments Findings: med-sized distal R Uret calc Complications: none Operative Note: with pt i lithotomy pos'n and after induction of anesthesia, she was prepped and draped un usual fashion. She rec'd abx IV. cysto w 21 Fr scope revealed stent in R UO. This was grasped and removed. A guide-wire was then placed thru the R UO into the collecting system. Fluoro was used for confirmation. The 6.9Fr ureteroscope was then used to examine the ureter. The 5 mm stone was encountered 4-5 cm from UO and fragmented with the laser fiber. After this was done, the stone fragments were removed with the Tricep grasper. On final inspection, there were no fragments in the ureter. The scope was removed. The cystoscope was then re-inserted and a 6 Fr x 24 cm stent was placed over the existing guidewire. The stent coiled in good position proximally and distally. The string was secured the patient's lower abdomen after emptying the bladder and removing the scope. The patient was given Toradol and Zofran and then awakened and transferred to . Disp: Home after RR. Rx's for Lortab and Cipro. RTO in 3 days for stent removal. THOMPSON SHI MD Sep 24, 2018 14:02
[2018-09-24 14:30] VITALS: BP 145/91
--- NOTE | 2018-09-25 16:06 | PATHOLOGY ---
[facility] Accession Number: [id number] . 01 Material submitted: . ureter - RIGHT URETERAL STONE. Modifiers: right . 01 Clinical history: . None provided . 02 Diagnosis: Right ureteral stone: - Consistent with calculus. - The specimen is sent out for further processing. Report pending outside analysis with results to follow in an addendum. MBR/09/25/2018 . 02 Electronically signed: . Sedrick Zelaya MD, Pathologist NPI- [id number] . 01 Gross description: . The specimen is received fresh, labeled "Emi Ashby, right ureteral stone". Received is a single light fischer, friable calculus measuring 0.3 cm in maximum dimensions. The specimen is forwarded to sendouts for further processing. (CAA; 09/25/2018) QAC/QAC . 02 Pathologist provided ICD-10: N20.1 . 02 CPT . 145152 Specimen Comment: A courtesy copy of this report has been sent to Specimen Comment: [phone]. Specimen Comment: Report sent to [facility]formed [facility]: [facility] [address], [place] [id number] MD Bob Baxter MD Phone: [phone] [facility]: [facility] [address], [place] [id number] MD Sedrick Zelaya MD Phone: [phone]
== END ==
LOC: SURG 12:30
PROVIDERS: ATTEND Urology
DX: N20.1 Calculus of ureter (principal)
CPT/HCPCS: 52356; 81025; 82365; C1769; C2617; J0696; J1100; J1885; J1940; J2001; J2250; J2370; J2405; J2704

== ENCOUNTER 2018-10-30 18:33 | Emergency (ER) | payer SELFPAY ==
[~2018-10-30] VITALS: Ht 160 cm; Wt 104.9 kg
[~2018-10-30 18:33] MED LIST changes: -DEXAMETHASONE SOD PHOS 4 MG/ML VIAL ONE; -FUROSEMIDE 40 MG/4 ML VIAL. ONE; -IV RINGERS,LACTATED 1000ML 1,000 ML IV SCH; -KETOROLAC 30 MG/ML INJ FOR OR. INJ ONE; -LIDOCAINE 2% PF 5 ML VIAL. ONE; -MIDAZOLAM HCL/PF 2 MG/2 ML VIAL. ONE; -ONDANSETRON PF 4 MG/2 ML VIAL. ONE; -PHENYLEPHRINE in 0.9% NACL PF 1 MG/10 ML SYRINGE. IV ONE; -PROPOFOL 20 ML IV ONE; -SEVOFLURANE 31 TO 60 MINUTES. IH ONE
[2018-10-30] MEDS ORDERED: predniSONE 10 MG TABLET PO ONE (18:45)
--- NOTE | 2018-10-30 18:53 | PHYS DOC ---
Past Medical History Past Medical History: Kidney Stone, Other Additional Past Medical Histor: GESTATIONAL DIABETES, septic shock Past Surgical History: Alcohol Use: None Drug Use: None Adult General Chief Complaint Chief Complaint: Congestion HPI HPI Patient is a 38 year old female who presents with 5 days of nasal congestion, cough and shortness of breath. Patient states she went to urgent care 2 days ago and was given clarithromycin antibiotic that she has been taking it. Patient states she has just gotten worse over the last day or so. Patient is 95% on room air and respirations are 28-30. She speaks in full clear sentences. States her chest is hurting her especially with coughing. Patient states her chest feels very tight. Review of Systems Review of Systems Constitutional: fever or chills [] HENT: nasal congestion or denies sore throat [] Respiratory: cough or shortness of breath [] Cardiovascular: Mid chest pain and tightness All other systems were reviewed and found to be within normal limits, except as documented in this note. Current Medications Current Medications Current Medications Medications (Trade) Dose Ordered Sig/Saad Start Time Stop Time Status Last Admin Dose Admin Albuterol Sulfate (Ventolin Neb Soln) 2.5 mg 1X ONCE 10/30/18 19:15 10/30/18 19:16 DC 10/30/18 18:59 2.5 MG Prednisone (Prednisone) 50 mg 1X ONCE 10/30/18 18:45 10/30/18 18:47 DC 10/30/18 18:56 50 MG Allergies Allergies Allergies Coded Allergies Type Severity Reaction Last Updated Verified No Known Drug Allergies 09/24/18 No Physical Exam Physical Exam Constitutional: Well developed, well nourished, no acute distress, non-toxic appearance. [] HENT: Normocephalic, atraumatic, bilateral external ears normal, oropharynx moist, no oral exudates, nose normal. [] Eyes: PERRLA, EOMI, conjunctiva normal, no discharge. [] Neck: Normal range of motion, no tenderness, supple, no stridor. [] Cardiovascular:Heart rate regular rhythm, no murmur [] Lungs & Thorax: Bilateral breath sounds diminished and expiratory and inspiratory wheezes to auscultation [] Skin: Warm, dry, no erythema, no rash. [] Neurologic: Alert and oriented X 3, normal motor function, normal sensory function, no focal deficits noted. [] Psychologic: Affect normal, judgement normal, mood normal. [] Current Patient Data Vital Signs Vital Signs Date Time Temp Pulse Resp B/P (MAP) Pulse Ox O2 Delivery O2 Flow Rate FiO2 10/30/18 19:38 101 18 172/90 (117) 96 Room Air 10/30/18 18:40 99.2 99.2 EKG EKG [] Radiology/Procedures Radiology/Procedures [] Course & Med Decision Making Course & Med Decision Making Patient is a 38 year old female who presents with 5 days of nasal congestion, non cough, chills and shortness of breath. Patient states she went to urgent care 2 days ago and was given clarithromycin antibiotic that she has been taking it. Patient states she has just gotten worse over the last day or so. Patient is 95% on room air and respirations are 28-30. She speaks in full clear sentences. States her chest is hurting her especially with coughing. Patient states her chest feels very tight. Alert and oriented. Skin pink warm and dry. Lungs sound diminished in have inspiratory x-ray wheezes throughout all lobes. Patient denies history of asthma or smoking. Ambulatory with steady gait. Patient denies dizziness, syncope, numbness or tingling, dysuria, weaknesses, headache, visual changes. Patient is given prednisone and a breathing treatment in the emergency room. She states she is feeling better after the first breathing treatment in the prednisone. Patient's lungs upon reassessment sound clear her in the wheezes are more pronounced. Patient will be given another breathing treatment and then discharged home with Medrol Dosepak and an inhaler. Patient is to continue taking the clarithromycin anabiotic. Patient is to follow-up with her primary care provider. Jaylon Disclaimer Jaylon Disclaimer This electronic medical record was generated, in whole or in part, using a voice recognition dictation system. Departure Departure Impression: Primary Impression: Cough Additional Impressions: Shortness of breath Chest congestion Disposition: 01 HOME, SELF-CARE Condition: STABLE Referrals: NO PCP (PCP) Patient Instructions: Bronchitis Additional Instructions: Follow up with primary care physician. Begin Medrol dose pack tomorrow. Continue taking antibiotic. Scripts Albuterol Sulfate (PROAIR HFA INHALER) 8.5 Gm Hfa.aer.ad 1 PUFF INH PRN Q6HRS PRN for SHORTNESS OF BREATH, #1 INHALER 0 Refills Prov: STACI CORLEY APRN 10/30/18 Methylprednisolone (MEDROL) 4 Mg Tab.ds.pk 1 PKG PO UD, #1 PKG Prov: STACI CORLEY APRN 10/30/18 Problem Qualifiers STACI CORLEY APRN Oct 30, 2018 18:53
[2018-10-30] MEDS ORDERED: ALBUTEROL SULFATE 2.5 MG/3 ML NEBU. NEB ONE ×2 (19:15→20:15)
[2018-10-30 19:38] VITALS: BP 172/90
[2018-10-30] MEDS ORDERED: ALBU2.5V8 INH (19:43)
[2018-10-30] MEDS ORDERED: METH4TAB2 PO (19:43)
--- NOTE | 2018-10-31 | RAD ---
CHEST PA LATERAL History: Dyspnea and cough for the past 3 days Comparison: 09/16/2018 CTA of the chest. Findings: Frontal and lateral views of chest were included on the lateral view and right costophrenic angle was not fully included on the frontal view. The patient's hair overlies the lung apices limiting assessment. The cardiomediastinal silhouette is normal. Pulmonary vasculature is normal. The lungs are clear. No pleural effusion or pneumothorax is seen. There is no acute bone abnormality. Calcified granuloma involves the left lung base. IMPRESSION: No acute cardiopulmonary process on this limited exam. Electronically signed by: Jerrod Jansen MD (10/30/2018 11:57 PM) [facility]
== END 2018-10-30 20:04 | disposition home or self-care (01) ==
LOC: ER 18:33
DX: R05 Cough (principal); R06.02 Shortness of breath; R09.81 Nasal congestion; Z98.890 Other specified postprocedural states; Z87.442 Personal history of urinary calculi
CPT/HCPCS: 71046; 94640; 99284; J7512; J7613